=== PATIENT | female | born 1985 | race Caucasian/White ===

== ENCOUNTER 2016-08-01 11:55 | Outpatient (CLI) ==
[2016-07-03 16:12] VITALS: BMI 36.6
== END 2016-08-01 11:56 | disposition home or self-care (01) ==
LOC: LAB 11:55
DX: R59.0 Localized enlarged lymph nodes (principal)
CPT/HCPCS: 36415; 87471

== ENCOUNTER 2017-03-13 13:56 | Outpatient (CLI) ==
[2016-07-03 16:12] VITALS: BMI 36.6
--- NOTE | 2017-03-13 14:33 | DI ---
EXAM: LEFT KNEE. HISTORY: Knee pain FINDINGS / IMPRESSION: Left knee three-view. Incidental note of mild intraosseous ligament ossifi cation off of the medial fibular head of indeterminate clinical significance. The bone and joint st ructures of the knee were otherwise unremarkable. Normal joint spaces. No fracture or joint effusi on.
== END 2017-03-13 13:57 | disposition home or self-care (01) ==
LOC: RAD 13:56
PROVIDERS: ATTEND Family Medicine
DX: M25.562 Pain in left knee (principal)

== ENCOUNTER 2017-04-08 10:44 | Emergency (ER) ==
[2017-04-08 10:49] VITALS: BP 118/84; TEMP 99.1; BMI 39.1
--- NOTE | 2017-04-08 11:15 | ED.PDOC ---
General ED Provider: Dr. SAL BOWMAN Chief Complaint: Toe Pain/Injury Stated Complaint: Caught right big toe in closing door which partially avulsed the toenail. Toe pain is throbbing and increases with any movement or touch. Bleeding controlled spontaneously. Time Seen by Physician: 11:09 Mode of Arrival: Walk-In Information Source: Patient Exam Limitations: No limitations Primary Care Provider: STEPHEN BENTON Nursing and Triage Documentation Reviewed and Agree: Yes Musculoskeletal Complaint Exam - Ankle/Foot Complaint/Exam Location of Injury: Reports: Right, Toe #1 Mechanism of Injury: Reports: Trauma (caught in closing door) Onset/Duration: approx 1 hour ago Symptoms Are: Reports: Still present Onset of Pain: Reports: Immediate Initial Severity: Severe Current Severity: Severe Location: Reports: Discrete Character: Reports: Throbbing (sharp initially, now throbbing) Alleviating: Reports: None Aggravating: Reports: Movement, Weight bearing (palpation) Able to Bear Weight: No Associated Signs and Symptoms: Reports: Swelling (slight swelling, nail partially avulsed, bled initially, now stopped.) Review of Systems - Review Of Systems Constitutional: Reports: No symptoms Musculoskeletal: Reports: Muscle pain Skin: Reports: Other (nail avulsed medially) Neurological: Reports: No symptoms All Other Systems: Reviewed and Negative Past Medical History - Past Medical History Previously Healthy: Yes Endocrine: Reports: None Cardiovascular: Reports: None Respiratory: Reports: None Hematological: Reports: None Gastrointestinal: Reports: None, Liver (STENT TO LIVER AND PANCREAS) Genitourinary: Reports: None Neuro/Psych: Reports: Migraine, Anxiety, Depression Musculoskeletal: Reports: None Cancer: Reports: None Last Menstrual Period: n/a Other Pertinent Past Medical History: right big toenail has grown deformed point upward since trauma 10 years ago - Surgical History General Surgical History: Reports: Hysterectomy, Cholecystectomy - Family History Family History: Reports: Unknown - Social History Smoking Status: Current every day smoker, Light tobacco smoker Hx Substance Use: No Alcohol Screening: Occasionally - Immunizations Tetanus Shot up to Date: Yes (less than 5 years) Physical Exam - Physical Exam Appearance: Well-appearing, No pain distress, Well-nourished Ill-appearing: None Pain Distress: Moderate Respiratory: Airway patent, Breath sounds clear, Breath sounds equal, Respirations nonlabored Cardiovascular: RRR, Pulses normal, No rub, No murmur Musculoskeletal: Limited ROM (right big toe IP tener with any ROM active or passive) Skin: Warm (right big toenail is partially avulsed medially) Neurological: Sensation intact Psychiatric: Affect appropriate, Mood appropriate Procedures - Additional Procedures Additional Procedures: Other (right big toenail was grasped and easily removed. No additional bleeding. Sterilely dressed.) Re-Evaluation - Re-Evaluation Time of Re-Evaluation: 13:43 Status: Improved Vital Signs Stable: Yes Pain Level: 0 Appearance: NAD Lungs: Clear Skin: Other (toe thoroughly cleansed, revealing all bleeding was from nail avulsion) Neuro: Alert and Oriented X3 CV: RRR Critical Care Note - Critical Care Note Total Time (mins): 0 Course - Course Orders, Labs, Meds: Orders Category Date Time Status Bupivacaine HCl Inj [Marcaine 0.5% Mdv] MEDS 04/08/17 13:03 Discontinued 1 ml INJ .STK-MED ONE Lidocaine HCl/Pf [Lidocaine HCl 1% Sdv] MEDS 04/08/17 12:21 Discontinued 5 ml .ROUTE .STK-MED ONE TOE(S), RIGHT MIN 2V Stat RADS 04/08/17 11:15 Completed Vital Signs: Temp Pulse Resp BP Pulse Ox 04/08/17 10:45 99.1 F 91 H 20 118/84 96 Departure - Departure Time of Disposition: 13:49 Disposition: HOME SELF-CARE Discharge Problem: Avulsion of toenail of right foot Instructions: Nail Avulsion (ED) Condition: Good Pt referred to PMD for follow-up: No (Follow up with PCP if any problems) Allergies/Adverse Reactions: Allergies morphine Adverse Reaction (Verified 04/08/17 10:49) Home Medications: Ambulatory Orders Alprazolam [Xanax] 1 mg PO QID 04/06/13 Sumatriptan Succinate [Imitrex] 25 mg PO DAILY PRN 04/15/14 Citalopram Hydrobromide [Celexa] 20 mg PO BEDTIME 02/26/15 Ropinirole HCl [Requip] 2 mg PO BEDTIME 05/16/15 Lipase/Protease/Amylase [Creon Dr 12,000 Units Capsule] 12,000 mg PO TID Alprazolam [Xanax] 1 mg PO QID 11/30/16 Topiramate [Topamax] 200 mg PO PRN 11/30/16 Cetirizine HCl [Zyrtec] 10 mg PO DAILY 04/08/17 Hydrocodone Bit/Acetaminophen [[place]wn 5-325] 1 each PO Q4HR PRN #20 tablet Quetiapine Fumarate [Seroquel] 1 - 2 tab PO BEDTIME 04/08/17 Disposition Discussed With: Patient
--- NOTE | 2017-04-08 11:45 | DI ---
EXAM: Three views of the right toes. History: Trauma of the right first digit. Findings: No acute fracture or dislocation. No abnormal calcifications or radiopaque foreign bodies . Soft tissue swelling of the first toe. Impression: No acute osseous abnormality. Soft tissue swelling of the first toe.
[2017-04-08] MEDS ORDERED: LIDOCAINE HCL 1% SDV ONE (12:21)
[2017-04-08] MEDS ORDERED: MARCAINE 0.5% MDV INJ ONE (13:03)
== END 2017-04-08 14:04 | disposition home or self-care (01) ==
LOC: ED 10:44
DX: S91.201A Unspecified open wound of right great toe with damage to nail, initial encounter (principal); F17.210 Nicotine dependence, cigarettes, uncomplicated; W23.0XXA Caught, crushed, jammed, or pinched between moving objects, initial encounter
CPT/HCPCS: 99283

== ENCOUNTER 2017-05-12 22:49 | Emergency (ER) ==
[2017-05-12] MEDS ORDERED: SODIUM CHLORIDE 1,000 ML IV STA (22:56)
[2017-05-12] MEDS ORDERED: DILAUDID 1 MG/ML SYRINGE IVP STA (22:56)
[2017-05-12] MEDS ORDERED: ZOFRAN 4 MG/2 ML IVP STA (22:56)
[2017-05-12 23:05] LABS: BASOPHILS % (AUTO) 0.5 % (0.0-3.0); EOSINOPHILS # (AUTO) 0.4 K/ul (0.0-0.7); EOSINOPHILS % (AUTO) 5.4 % (0.0-7.0); HEMATOCRIT 38.5 % (37.0-47.0); HEMOGLOBIN 13.2 g/dl (12.0-16.0); IMMATURE GRANULOCYTE % (AUTO) 0.3 % (0.0-5.0); LYMPHOCYTES # (AUTO) 2.3 K/uL (0.60-3.4); LYMPHOCYTES % (AUTO) 29.9 (10.0-50.0); MEAN CORPUSCULAR HGB CONC 34.3 (31.8-35.4); MEAN CORPUSCULAR VOLUME 90.4 fl (81.0-99.0); MONOCYTES # (AUTO) 0.5 K/uL (0.4-2.0); MONOCYTES % (AUTO) 5.9 (0-10); NEUTROPHILS # (AUTO) 4.4 K/ul (2.0-6.9); PLATELET COUNT 189 10^3/uL (140-440); RED BLOOD COUNT 4.26 10^6/ul (4.20-5.40); WHITE BLOOD COUNT 7.65 K/ul (4.6-10.2)
[2017-05-12 23:07] VITALS: BP 109/57; TEMP 96.9; BMI 39.6
[2017-05-12 23:41] LABS: ALANINE AMINOTRANSFERASE 33 U/L (12-78); ALBUMIN 3.7 g/dL (3.4-5.0); ALBUMIN/GLOBULIN RATIO 1.16; ALKALINE PHOSPHATASE 55 U/L (42-98); AMYLASE 27 U/L (25-115); ANION GAP 13.6; ASPARTATE AMINO TRANSFERASE 24 U/L (15-37); BILIRUBIN,TOTAL 0.34 mg/dL (0.00-1.20); BLOOD UREA NITROGEN 9 mg/dL (7-18); CALCIUM 9.7 mg/dL (8.2-10.2); CARBON DIOXIDE 21 mmol/L (21-32); CHLORIDE 108 mmol/L (98-107); CREATINE KINASE 437 U/L; CREATININE 0.75 mg/dL (0.60-1.30); GLUCOSE 93 mg/dL (70-110); LIPASE 17 U/L (8-78); POTASSIUM 3.6 mmol/L (3.5-5.10); SODIUM 139 mmol/L (136-145); TOTAL PROTEIN 6.9 g/dL (6.4-8.2)
[2017-05-12 23:42] LABS: CREATINE KINASE MB 1.8 ng/ml (0.0-3.6)
[2017-05-12 23:45] LABS: ADD URINE MICROSCOPIC NO; BILIRUBIN,URINE Negative (NEGATIVE); KETONES,URINE Negative (NEGATIVE); LEUKOCYTE ESTERASE ,URINE Negative (NEGATIVE); NITRITE,URINE Negative (NEGATIVE); PROTEIN,URINE Negative (NEGATIVE); URINE, BLOOD Negative (NEGATIVE)
--- NOTE | 2017-05-12 23:45 | CT ---
EXAM: CT of the abdomen and pelvis without contrast. HISTORY: Abdominal pain. History of pancreatitis. Surgical history includes partial hysterectomy. PROCEDURE: Contiguous axial CT images of the abdomen and pelvis without contrast with coronal and sa gittal reformats. FINDINGS: Comparison made with CT abdomen/pelvis of 02/16/2016. The liver is normal in appearance. The gallbladder is surgically absent. The pancreas, spleen, adrenal glands and right kidney are norm al in appearance. There is a 0.2 cm nonobstructive calcification in the left kidney. No ureterolithi asis or hydronephrosis. The abdominal aorta is normal in appearance. The visualized loops of bowel and appendix are normal in appearance. No free fluid or free air in the abdomen or pelvis. The bladde r is adequately filled with no abnormality identified. The uterus is unremarkable. There are phlebol iths in the lower pelvis. The bones and soft tissues are unremarkable. Impression: No CT evidence of pancreatitis. Recommend correlation with amylase and lipase levels if clinically indicated. Nonobstructive left nephrolithiasis. Cholecystectomy.
--- NOTE | 2017-05-13 00:04 | ED.PDOC ---
General ED Provider: Dr. DREA WEBB-ER Chief Complaint: Abdominal Pain Stated Complaint: yamil been having ccramping Time Seen by Physician: 22:55 Mode of Arrival: Walk-In Information Source: Patient Exam Limitations: No limitations Primary Care Provider: STEPHEN BENTON Nursing and Triage Documentation Reviewed and Agree: Yes GI Complaint Exam - Abdominal Pain Complaint/Exam Onset: Gradual Duration: several days Symptoms Are: Still present Timing: Intermittent Initial Severity: Mild Current Severity: Mild Location of Pain: Epigastric Character: Reports: Dull, Aching, Cramping Aggravating: Reports: None Alleviating: Reports: Spontaneous resolution Associated Signs and Symptoms: Denies: Diaphoresis, Fever, Cough, Chest pain, Dizziness, Back pain, Constipation, Blood in stool, Dysuria, Urinary frequency, Decreased urine output, Decreased appetite, Vaginal bleeding, Vaginal discharge , Nausea, Vomiting, Diarrhea, Sore throat, Decreased activity Patient Rh Status: Unknown Abdominal Findings: Present: None Differential Diagnoses: Appendicitis, Bowel Obstruction, Constipation, Pancreatitis, Ureteral Stone Quality Indicator For Non-Traumatic Chest Pain/Syncope: EKG Performed Review of Systems - Review Of Systems Constitutional: Reports: No symptoms Eyes: Reports: No symptoms Ears, Nose, Mouth, Throat: Reports: No symptoms Respiratory: Reports: No symptoms Cardiac: Reports: No symptoms GI: Reports: Abdominal pain : Reports: No symptoms Musculoskeletal: Reports: No symptoms Skin: Reports: No symptoms Neurological: Reports: No symptoms Endocrine: Reports: No symptoms Hematologic/Lymphatic: Reports: No symptoms All Other Systems: Reviewed and Negative Past Medical History - Past Medical History Previously Healthy: Yes Endocrine: Reports: None Cardiovascular: Reports: None Respiratory: Reports: None Hematological: Reports: None Gastrointestinal: Reports: None, Liver (STENT TO LIVER AND PANCREAS) Genitourinary: Reports: None Neuro/Psych: Reports: Migraine, Anxiety, Depression Musculoskeletal: Reports: None Cancer: Reports: None Last Menstrual Period: 4-5 YEARS AGO ...PARTIAL HYSTERECTOMY Other Pertinent Past Medical History: right big toenail has grown deformed point upward since trauma 10 years ago - Surgical History General Surgical History: Reports: Hysterectomy, Cholecystectomy - Family History Family History: Reports: Unknown - Social History Smoking Status: Current every day smoker, Light tobacco smoker Hx Substance Use: No Alcohol Screening: Occasionally - Immunizations Tetanus Shot up to Date: Yes Physical Exam - Physical Exam Appearance: Well-appearing, No pain distress, Well-nourished Pain Distress: Mild Eyes: ARTEMIO, EOMI, Conjunctiva clear ENT: Ears normal, Nose normal, Oropharynx normal Neck: Supple Respiratory: Airway patent, Breath sounds clear, Breath sounds equal, Respirations nonlabored Cardiovascular: RRR GI/: Soft Musculoskeletal: Normal strength Skin: Warm Neurological: Sensation intact Psychiatric: Affect appropriate, Mood appropriate Interpretation - Radiology Interpretation Radiology Interpretation By: Radiologist Radiology Results: Negative Exam Interpreted: CT Scan Critical Care Note - Critical Care Note Total Time (mins): 0 Course - Course Hematology/Chemistry: 05/12/17 23:04 05/12/17 23:04 Orders, Labs, Meds: Lab Review 05/12/17 05/12/17 05/12/17 23:04 23:04 23:35 WBC 7.65 RBC 4.26 Hgb 13.2 Hct 38.5 MCV 90.4 MCH 31.0 MCHC 34.3 RDW Coeff of Raf 12.8 Plt Count 189 Immature Gran % (Auto) 0.3 Neut % (Auto) 58.0 Lymph % (Auto) 29.9 [place] % (Auto) 5.9 Eos % (Auto) 5.4 Baso % (Auto) 0.5 Immature Gran # (Auto) 0.0 Neut # 4.4 Lymph # 2.3 [place] # 0.5 Eos # 0.4 Baso # 0.0 Sodium 139 Potassium 3.6 Chloride 108 H Carbon Dioxide 21 Anion Gap 13.6 BUN 9 Creatinine 0.75 Estimated GFR (MDRD) 89.00 BUN/Creatinine Ratio 12.00 Glucose 93 Calcium 9.7 Total Bilirubin 0.34 AST 24 ALT 33 Alkaline Phosphatase 55 Total Creatine Kinase 437 CK-MB (CK-2) 1.8 CK-MB (CK-2) % 0.47220 Troponin I < 0.0100 Total Protein 6.9 Albumin 3.7 Globulin 3.2 Albumin/Globulin Ratio 1.16 Amylase 27 Lipase 17 Urine Color Yellow Urine Clarity Clear Urine pH 7.0 Ur Specific [place] 1.010 Urine Protein Negative Urine Glucose (UA) Negative Urine Ketones Negative Urine Blood Negative Urine Nitrite Negative Urine Bilirubin Negative Urine Urobilinogen 0.2 Ur Leukocyte Esterase Negative Orders Category Date Time Status EKG-(ED ONLY) Stat CARDIO 05/12/17 22:55 Completed IV [ED IV/MEDIPORT/POWERPORT] .ONCE EMERGENCY 05/12/17 22:56 Active AMYLASE Stat LAB 05/12/17 23:04 Completed CBC W/ AUTO DIFF Stat LAB 05/12/17 23:04 Completed COMPREHENSIVE METABOLIC PANEL Stat LAB 05/12/17 23:04 Completed CREATINE KINASE Stat LAB 05/12/17 23:04 Completed LIPASE Stat LAB 05/12/17 23:04 Completed TROPONIN I Stat LAB 05/12/17 23:04 Completed URINALYSIS C & S IF INDICATED Stat LAB 05/12/17 23:35 Completed 0.9 % Sodium Chloride [Saline Flush] MEDS 05/12/17 22:56 Ordered 1 syr IVF PRN PRN Hydromorphone HCl [Dilaudid 1 mg/ml Syringe] MEDS 05/12/17 22:56 Discontinued 1 mg IVP ONCE STA Ondansetron HCl/Pf [Zofran 4 mg/2 ml] MEDS 05/12/17 22:56 Discontinued 4 mg IVP ONCE STA Sodium Chloride 0.9% [Sodium Chloride] 1,000 ml MEDS 05/12/17 22:[address] ABDOMEN/PELVIS WO CONTRAST Stat RADS 05/12/17 22:57 Completed Medications Generic Name Dose Route Start Last Admin Trade Name Freq PRN Reason Stop Dose Admin Sodium Chloride 1,000 mls @ 500 mls/hr 05/12/17 22:56 05/12/17 23:42 Sodium Chloride IV 05/13/17 00:55 500 mls/hr BOLUS STA Administration Sodium Chloride 1 syr 05/12/17 22:56 Saline Flush IVF PRN PRN To flush IV Discontinued Medications Generic Name Dose Route Start Last Admin Trade Name Freq PRN Reason Stop Dose Admin Hydromorphone HCl 1 mg 05/12/17 22:56 Dilaudid 1 Mg/Ml Syringe IVP 05/12/17 22:57 ONCE STA Ondansetron HCl 4 mg 05/12/17 22:56 05/12/17 23:45 Zofran 4 Mg/2 Ml IVP 05/12/17 22:57 4 mg ONCE STA Administration Vital Signs: Temp Pulse Resp BP Pulse Ox 05/12/17 22:56 96.9 F L 69 20 109/57 L 96 Departure - Departure Time of Disposition: 00:04 Disposition: HOME SELF-CARE Discharge Problem: Abdominal pain Instructions: Abdominal Pain (ED) Condition: Good Pt referred to PMD for follow-up: Yes Additional Instructions: f/u wtih dr love tomorrow regarding cramps--suggest talking to dr benton as well Allergies/Adverse Reactions: Allergies morphine Adverse Reaction (Verified 05/12/17 23:06) Swelling Home Medications: Ambulatory Orders Citalopram Hydrobromide [Celexa] 20 mg PO BEDTIME 02/26/15 Ropinirole HCl [Requip] 2 mg PO BEDTIME 05/16/15 Lipase/Protease/Amylase [Isabel Del Cid 12,000 Units Capsule] 12,000 mg PO TID Alprazolam [Xanax] 1 mg PO QID 11/30/16 Topiramate [Topamax] 200 mg PO PRN 11/30/16 Cetirizine HCl [Zyrtec] 10 mg PO DAILY 04/08/17 Quetiapine Fumarate [Seroquel] 1 - 2 tab PO BEDTIME 04/08/17 Phentermine HCl 37.5 mg PO DAILY 05/12/17 Varenicline Tartrate [Chantix] 1 mg PO BID 05/12/17 Disposition Discussed With: Patient
== END 2017-05-13 00:15 | disposition home or self-care (01) ==
LOC: ED 22:49
DX: R10.9 Unspecified abdominal pain (principal); F17.210 Nicotine dependence, cigarettes, uncomplicated; Z79.899 Other long term (current) drug therapy
CPT/HCPCS: 36415; 80053; 81001; 82150; 82550; 82553; 83690; 84484; 85025; 93005; 93010; 96361; 96374; 99283

== ENCOUNTER 2017-07-08 14:29 | Outpatient (CLI) ==
[2017-07-08 14:42] LABS: FLU INTERNAL QC INTERNAL QC VALID; RAPID FLU A NEGATIVE (NEGATIVE); RAPID FLU B NEGATIVE (NEGATIVE)
== END 2017-07-08 14:30 | disposition home or self-care (01) ==
LOC: LAB 14:29
PROVIDERS: ATTEND Nurse Practitioner Family
DX: R05 Cough (principal); R50.9 Fever, unspecified
CPT/HCPCS: 87651; 87804; 87880

== ENCOUNTER 2017-07-30 11:37 | Outpatient (CLI) | END 2017-07-30 11:38 | disposition home or self-care (01) | LOC: LAB 11:37 | PROVIDERS: ATTEND Internal Medicine Gastroenterology | DX: K86.1 Other chronic pancreatitis (principal) | CPT/HCPCS: 36415; 80053; 85025 ==

== ENCOUNTER 2017-09-10 13:06 | Outpatient (CLI) | END 2017-09-10 13:07 | disposition home or self-care (01) | LOC: LAB 13:06 | PROVIDERS: ATTEND Nurse Practitioner Family | DX: R50.9 Fever, unspecified (principal) | CPT/HCPCS: 87804 ==

== ENCOUNTER 2017-09-24 08:09 | Emergency (ER) ==
[2017-09-24 08:17] VITALS: BP 119/84; TEMP 99.2; BMI 42.7
[2017-09-24] MEDS ORDERED: SODIUM CHLORIDE 1,000 ML IV STA (09:16)
[2017-09-24] MEDS ORDERED: PEPCID IVP STA (09:20)
[2017-09-24] MEDS ORDERED: ZOFRAN 4 MG/2 ML IVP STA (09:20)
--- NOTE | 2017-09-24 09:22 | ED.PDOC ---
General ED Provider: Dr. DREA CHAU Chief Complaint: Nausea/Vomiting Stated Complaint: Nausea and vomiting. Hx chronic pancreatitis. Onset GI symptoms last with multiple episodes emesis. Developed diarrhea. Unable to keep liquids down. Having upper abdominal cramping sensation. Denies flank or symptoms Time Seen by Physician: 09:00 Mode of Arrival: Walk-In Information Source: Patient Exam Limitations: No limitations Primary Care Provider: STEPHEN FARRIS Nursing and Triage Documentation Reviewed and Agree: Yes Reviewed sepsis parameters & appropriate labs ordered?: Yes System Inflammatory Response Syndrome: Not Applicable Sepsis Protocol: For patient's 13 years and over: Temp is 96.8 and below OR 101 and greater Pulse >90 BPM Resp >20/minute Acutely Altered Mental Status Are patient's symptoms suggestive of a new infection, such as: -Pneumonia -Skin, Soft Tissue -Endocarditis -UTI -Bone, Joint Infection -Implantable Device -Acute Abdominal Infection -Wound Infection -Meningitis -Blood Stream Catheter Infection -Unknown System Inflammatory Response Syndrome: Not Applicable GI Complaint Exam - Abdominal Pain Complaint/Exam Onset: Sudden Duration: 6 days Symptoms Are: Still present Timing: Intermittent Initial Severity: Moderate Current Severity: Moderate Location of Pain: Epigastric Character: Reports: Dull, Aching Aggravating: Reports: Position, Eating (NPO except small amout clear liquid for past several day-states has lost 10 #) Associated Signs and Symptoms: Reports: Decreased urine output, Decreased appetite AAA Risk Factors: Reports: None Cardiac Risk Factors: Reports: None Ectopic Risk Factors: Reports: None Ovarian Torsion Risk Factors: Reports: None Surgical Obstruction Risk Factors: Reports: None Review of Systems - Review Of Systems Constitutional: Reports: Chills, Weakness Eyes: Reports: No symptoms, Blindness, Blurred vision Ears, Nose, Mouth, Throat: Reports: No symptoms Respiratory: Reports: No symptoms Cardiac: Reports: No symptoms GI: Reports: Abdominal pain, Diarrhea, Nausea, Vomiting : Reports: No symptoms Musculoskeletal: Reports: No symptoms Skin: Reports: No symptoms Neurological: Reports: No symptoms Endocrine: Reports: No symptoms Hematologic/Lymphatic: Reports: No symptoms All Other Systems: Reviewed and Negative Past Medical History - Past Medical History Previously Healthy: Yes Endocrine: Reports: None Cardiovascular: Reports: None Respiratory: Reports: None Hematological: Reports: None Gastrointestinal: Reports: None, Liver (STENT TO LIVER AND PANCREAS) Genitourinary: Reports: None Neuro/Psych: Reports: Migraine, Anxiety, Depression Musculoskeletal: Reports: None Cancer: Reports: None Last Menstrual Period: Hysterectomy Other Pertinent Past Medical History: right big toenail has grown deformed point upward since trauma 10 years ago - Surgical History General Surgical History: Reports: Hysterectomy, Cholecystectomy - Family History Family History: Reports: Unknown - Social History Smoking Status: Current every day smoker, Light tobacco smoker Hx Substance Use: No Alcohol Screening: Occasionally - Immunizations Tetanus Shot up to Date: Yes Physical Exam - Physical Exam Appearance: Ill-appearing Ill-appearing: Moderate Pain Distress: Moderate Eyes: ARTEMIO, EOMI, Conjunctiva clear ENT: Ears normal, Nose normal, Oropharynx normal, Dry mucosa (tongue dry/bad oral fetor) Neck: Supple Respiratory: Airway patent, Breath sounds clear, Breath sounds equal Cardiovascular: RRR, Pulses normal, No rub, No murmur GI/: Soft, Nontender, No masses, Tender Musculoskeletal: Normal strength Skin: Warm, Dry Neurological: Sensation intact, Motor intact, Reflexes intact, Cranial nerves intact, Alert, Oriented Psychiatric: Affect appropriate, Mood appropriate, Anxious Re-Evaluation - Re-Evaluation Time of Re-Evaluation: 14:00 Status: Improved Vital Signs Stable: Yes Pain Level: 0 Appearance: NAD Lungs: Clear Skin: Warm and Dry Neuro: Alert and Oriented X3 CV: RRR Additional Comments: Taking clear liquids well Critical Care Note - Critical Care Note Total Time (mins): 0 Course - Course Hematology/Chemistry: 09/24/17 09:30 09/24/17 09:30 Orders, Labs, Meds: Lab Review 09/24/17 09/24/17 09/24/17 09:30 09:30 09:30 WBC 5.53 RBC 4.62 Hgb 14.4 Hct 42.1 MCV 91.1 MCH 31.2 H MCHC 34.2 RDW Coeff of Raf 12.8 Plt Count 221 Immature Gran % (Auto) 0.4 Neut % (Auto) 65.2 Lymph % (Auto) 25.0 [place] % (Auto) 5.8 Eos % (Auto) 2.9 Baso % (Auto) 0.7 Immature Gran # (Auto) 0.0 Neut # (Auto) 3.6 Lymph # (Auto) 1.4 [place] # (Auto) 0.3 L Eos # (Auto) 0.2 Baso # (Auto) 0.0 Sodium 140 Potassium 3.7 Chloride 109 H Carbon Dioxide 21 Anion Gap 13.7 BUN 11 Creatinine 0.76 Estimated GFR (MDRD) 88.00 BUN/Creatinine Ratio 14.47 Glucose 101 Lactic Acid 12.5 Calcium 9.6 Total Bilirubin 0.6 AST 20 ALT 46 Alkaline Phosphatase 60 Total Protein 7.4 Albumin 3.9 Globulin 3.5 Albumin/Globulin Ratio 1.11 Amylase 29 Lipase 16 Urine Color Urine Clarity Urine pH Ur Specific [place] Urine Protein Urine Glucose (UA) Urine Ketones Urine Blood Urine Nitrite Urine Bilirubin Urine Urobilinogen Ur Leukocyte Esterase Urine Microscopic RBC Ur Squamous Epith Cells Urine Bacteria Influ A Molecular Assay Influ B Molecular Assay 09/24/17 09/24/17 10:00 13:33 WBC RBC Hgb Hct MCV MCH MCHC RDW Coeff of Raf Plt Count Immature Gran % (Auto) Neut % (Auto) Lymph % (Auto) [place] % (Auto) Eos % (Auto) Baso % (Auto) Immature Gran # (Auto) Neut # (Auto) Lymph # (Auto) [place] # (Auto) Eos # (Auto) Baso # (Auto) Sodium Potassium Chloride Carbon Dioxide Anion Gap BUN Creatinine Estimated GFR (MDRD) BUN/Creatinine Ratio Glucose Lactic Acid Calcium Total Bilirubin AST ALT Alkaline Phosphatase Total Protein Albumin Globulin Albumin/Globulin Ratio Amylase Lipase Urine Color Yellow Urine Clarity Clear Urine pH 5.0 Ur Specific [place] 1.010 Urine Protein Negative Urine Glucose (UA) Negative Urine Ketones Negative Urine Blood Trace-intact Urine Nitrite Negative Urine Bilirubin Negative Urine Urobilinogen 0.2 Ur Leukocyte Esterase Negative Urine Microscopic RBC 0-2 Ur Squamous Epith Cells 30-50 Urine Bacteria Trace Influ A Molecular Assay Negative by naat Influ B Molecular Assay Negative by naat Orders Category Date Time Status IV ACCESS ONCE CARE 09/24/17 09:16 Active NPO REMINDER: IMAGING ONCE CARE 09/24/17 09:20 Completed AMYLASE Stat LAB 09/24/17 09:30 Completed BLOOD CULTURE (ED ONLY) Stat LAB 09/24/17 09:30 Received CBC W/ AUTO DIFF Stat LAB 09/24/17 09:30 Completed CMP [COMPREHENSIVE METABOLIC PANEL] Stat LAB 09/24/17 09:30 Completed FLU A & B MOLECULAR [FLU A/B MOLECULAR] Stat LAB 09/24/17 10:00 Completed LACTIC ACID Stat LAB 09/24/17 09:30 Completed LIPASE Stat LAB 09/24/17 09:30 Completed RAPID STREP SCREEN [MOLECULAR GROUP A STREP] Stat LAB 09/24/17 10:00 Completed UA [URINALYSIS C & S IF INDICATED] Stat LAB 09/24/17 13:33 Completed Famotidine Inj [Pepcid] MEDS 09/24/17 09:20 Discontinued 20 mg IVP ONCE STA Ondansetron HCl/Pf [Zofran 4 mg/2 ml] MEDS 09/24/17 09:20 Discontinued 4 mg IVP ONCE STA Promethazine HCl [Phenergan 25 mg/ml Vial] MEDS 09/24/17 11:28 Discontinued 25 mg .ROUTE .STK-MED ONE Promethazine HCl [Phenergan 25 mg/ml Vial] 25 mg MEDS 09/24/17 11:24 Discontinued 0.9 % Sodium Chloride [Sodium Chloride] 50 ml IV ONCE Sodium Chloride 0.9% [Sodium Chloride] 1,000 ml MEDS 09/24/17 09:[address] ABDOMEN/PELVIS W/WO CONTRAS Stat RADS 09/24/17 09:19 Completed Medications Discontinued Medications Generic Name Dose Route Start Last Admin Trade Name Yanivq PRN Reason Stop Dose Admin Famotidine 20 mg 09/24/17 09:20 09/24/17 10:35 Pepcid IVP 09/24/17 09:21 20 mg ONCE STA Administration Sodium Chloride 1,000 mls @ 500 mls/hr 09/24/17 09:16 09/24/17 10:35 Sodium Chloride IV 09/24/17 11:15 500 mls/hr BOLUS STA Administration Promethazine HCl 25 mg/ Sodium 51 mls @ 75 mls/hr 09/24/17 11:24 09/24/17 11: 40 Chloride IV 09/24/17 12:04 75 mls/hr ONCE STA Administration Ondansetron HCl 4 mg 09/24/17 09:20 09/24/17 10:20 Zofran 4 Mg/2 Ml IVP 09/24/17 09:21 4 mg ONCE STA Administration Vital Signs: Temp Pulse Resp BP Pulse Ox 09/24/17 08:11 99.2 F 71 18 119/84 97 Departure - Departure Time of Disposition: 14:20 Disposition: HOME SELF-CARE Discharge Problem: Gastroenteritis Instructions: Gastroenteritis (ED) Condition: Good Pt referred to PMD for follow-up: Yes (Dr Farris in next 7-10 days or return to ER if symptoms return or worsen) IPMP verified?: No Allergies/Adverse Reactions: Allergies morphine Adverse Reaction (Verified 09/24/17 08:17) Swelling Home Medications: Ambulatory Orders Citalopram Hydrobromide [Celexa] 20 mg PO BEDTIME 02/26/15 Ropinirole HCl [Requip] 2 mg PO BEDTIME 05/16/15 Alprazolam [Xanax] 1 mg PO QID 11/30/16 Topiramate [Topamax] 200 mg PO PRN 11/30/16 Quetiapine Fumarate [Seroquel] 1 - 2 tab PO BEDTIME 04/08/17 Varenicline Tartrate [Chantix] 1 mg PO BID 05/12/17 Promethazine HCl [Phenergan Tab] 25 mg PO Q8H PRN #7 tablet 09/24/17 Disposition Discussed With: Patient
--- NOTE | 2017-09-24 10:49 | CT ---
EXAM: CT abdomen pelvis with and without contrast HISTORY: Abdominal pain with history of pancreatitis COMPARISON: CT abdomen pelvis 05/12/2017 and 02/16/2016 with multiple priors TECHNIQUE: Serial axial images of the abdomen pelvis were performed before and after 75 mL is of Omn ipaque IV contrast was administered. These were obtained from the lung bases through the inferior pe lvis. FINDINGS: The lung bases are clear. The liver is unremarkable. There has been a cholecystectomy. Adrenal glands are unremarkable. The kidneys demonstrate no obstruction, stone or abnormality. The spleen is unremarkable. The pancreas is unremarkable. There is no peripancreatic inflammatory stranding. The stomach is mildly distended . Small bowel in the abdomen pelvis is unremarkable. The colon is nondistended. There are nonenlarged mesenteric lymph nodes. There is no free air or free fluid. Urinary bladder is distended. The sof t tissues in the pelvis are normal. The osseous structures are unremarkable. IMPRESSION: 1. No acute intra-abdominal or pelvic process. There is no evidence of pancreatitis. 2. Prior cholecystectomy.
[2017-09-24] MEDS ORDERED: PHENERGAN 25 MG/ML VIAL 25 MG in SODIUM CHLORIDE 50 ML IV STA (11:24)
[2017-09-24] MEDS ORDERED: PHENERGAN 25 MG/ML VIAL ONE (11:28)
== END 2017-09-24 14:30 | disposition home or self-care (01) ==
LOC: ED 08:09
DX: K52.9 Noninfective gastroenteritis and colitis, unspecified (principal); Z87.19 Personal history of other diseases of the digestive system; F17.210 Nicotine dependence, cigarettes, uncomplicated
CPT/HCPCS: 36415; 80053; 81001; 82150; 83605; 83690; 85025; 87040; 87502; 87651; 96361; 96365; 96375; 99283

== ENCOUNTER 2017-11-20 18:16 | Emergency (ER) ==
[2017-11-20 18:20] VITALS: BP 98/59; TEMP 99.3; BMI 42.6
[2017-11-20] MEDS ORDERED: ROCEPHIN IM STA (18:32)
[2017-11-20] MEDS ORDERED: DECADRON 4 MG/ML SDV IM STA (18:32)
[2017-11-20] MEDS ORDERED: LIDOCAINE HCL 1% SDV IM STA (18:32)
--- NOTE | 2017-11-20 18:38 | ED.PDOC ---
General ED Provider: Dr. WM MIRANDA Chief Complaint: Cough Stated Complaint: COUGH, FLU LIKE SYMPTOMS Time Seen by Physician: 18:19 Mode of Arrival: Walk-In Information Source: Patient Exam Limitations: No limitations Primary Care Provider: STEPHEN BENTON Nursing and Triage Documentation Reviewed and Agree: Yes Reviewed sepsis parameters & appropriate labs ordered?: Yes (SEEN WITH NURSING STAFF PRESENT 3 DAYS OF COUGH) System Inflammatory Response Syndrome: Not Applicable Sepsis Protocol: For patient's 13 years and over: Temp is 96.8 and below OR 101 and greater Pulse >90 BPM Resp >20/minute Acutely Altered Mental Status Are patient's symptoms suggestive of a new infection, such as: -Pneumonia -Skin, Soft Tissue -Endocarditis -UTI -Bone, Joint Infection -Implantable Device -Acute Abdominal Infection -Wound Infection -Meningitis -Blood Stream Catheter Infection -Unknown System Inflammatory Response Syndrome: Not Applicable Respiratory Complaint Exam - Respiratory Complaint/Exam Onset/Duration: 3 DAYS Symptoms Are: Still present Timing: Intermittent Initial Severity: Moderate Current Severity: Moderate Location: Throat, Chest Character: Reports: Non-productive cough, Dry cough Aggravating: Reports: URI Alleviating: Reports: None Associated Signs and Symptoms: Reports: URI, Nasal congestion. Denies: Rapid breathing, Dyspnea, Fever, Chills, Chest pain, Pleuritic chest pain, Wheezing, Hemoptysis, Dizziness, Calf pain, Calf swelling, Edema, Hoarseness, Sinus discomfort, Vomiting, Sore throat, Weight loss, Decreased oral intake, Increased thirst, Increased appetite, Increased urination Related History: Reports: Similar episode History of Healthcare-Acquired Pneumonia: No Related Surgical History: Reports: None Pulmonary Embolism Risk Factors: None Cardiac Risk Factors: Reports: None Pseudomonas Risk Factors: Reports: None Tuberculosis Risk Factors: Reports: None Status Asthmaticus Risk Factors: Reports: None Home Oxygen Use: No Recent Stress Test: No Recent Echo/LV Function: No Current Antibiotic Use: No Current Asthma Medication Use: No Respiratory Distress: None Inadequate Respiratory Effort: No Dysphagia Present: No Stridor Present: No JVD Present: No Accessory Muscle Use: No Retractions: Not Present Diminished Breath Sounds: No Prolonged Respiration: Expiratory phase Sinus Tenderness: None Grunting Respirations: No Kussmaul Respirations: No Differential Diagnoses: Pneumonia, Bronchitis, Influenza, Lower Resp. Infection Review of Systems - Review Of Systems Constitutional: Reports: Malaise Eyes: Reports: No symptoms Ears, Nose, Mouth, Throat: Reports: No symptoms Respiratory: Reports: Cough, Wheezing Cardiac: Reports: No symptoms GI: Reports: No symptoms : Reports: No symptoms Musculoskeletal: Reports: No symptoms Skin: Reports: No symptoms Neurological: Reports: No symptoms Endocrine: Reports: No symptoms Hematologic/Lymphatic: Reports: No symptoms All Other Systems: Reviewed and Negative Past Medical History - Past Medical History Previously Healthy: Yes Endocrine: Reports: None Cardiovascular: Reports: None Respiratory: Reports: None Hematological: Reports: None Gastrointestinal: Reports: None, Liver (STENT TO LIVER AND PANCREAS) Genitourinary: Reports: None Neuro/Psych: Reports: Migraine, Anxiety, Depression Musculoskeletal: Reports: None Cancer: Reports: None Last Menstrual Period: none Other Pertinent Past Medical History: right big toenail has grown deformed point upward since trauma 10 years ago - Surgical History General Surgical History: Reports: Hysterectomy, Cholecystectomy - Family History Family History: Reports: Unknown - Social History Smoking Status: Current every day smoker, Light tobacco smoker Hx Substance Use: No Alcohol Screening: Occasionally Physical Exam - Physical Exam Appearance: Well-appearing, No pain distress, Well-nourished Eyes: ARTEMIO, EOMI, Conjunctiva clear ENT: Ears normal, Nose normal, Oropharynx normal Respiratory: Breath sounds diminished, Rhonchi, Wheezes Cardiovascular: RRR, Pulses normal, No rub, No murmur GI/: Soft, Nontender, No masses, Bowel sounds normal, No Organomegaly Musculoskeletal: Normal strength, ROM intact, No edema, No calf tenderness Skin: Warm, Dry, Normal color Neurological: Sensation intact, Motor intact, Reflexes intact, Cranial nerves intact, Alert, Oriented Psychiatric: Affect appropriate, Mood appropriate Interpretation - Radiology Interpretation Radiology Interpretation By: Radiologist Critical Care Note - Critical Care Note Total Time (mins): 0 Course - Course Orders, Labs, Meds: Orders Category Date Time Status CBC W/ AUTO DIFF Stat LAB 11/20/17 18:30 Ordered COMPREHENSIVE METABOLIC PANEL Stat LAB 11/20/17 18:30 Ordered FLU A/B MOLECULAR Stat LAB 11/20/17 18:30 Uncollected MOLECULAR GROUP A STREP Stat LAB 11/20/17 18:30 Uncollected Ceftriaxone Sodium [Rocephin] MEDS 11/20/17 18:32 Stat 1 gm IM ONCE STA Dexamethasone 4 mg/ml Inj [Decadron 4 mg/ml Sdv] MEDS 11/20/17 18:32 Stat 4 mg IM ONCE STA Lidocaine HCl/Pf [Lidocaine HCl 1% Sdv] MEDS 11/20/17 18:32 Stat 2.1 ml IM ONCE STA CT CHEST W/O CONTRAST Stat RADS 11/20/17 18:26 Ordered Medications Discontinued Medications Generic Name Dose Route Start Last Admin Trade Name Cristopher PRN Reason Stop Dose Admin Ceftriaxone Sodium 1 gm 11/20/17 18:32 Rocephin IM 11/20/17 18:33 ONCE STA Dexamethasone Sodium Phosphate 4 mg 11/20/17 18:32 Decadron 4 Mg/Ml Sdv IM 11/20/17 18:33 ONCE STA Lidocaine HCl 2.1 ml 11/20/17 18:32 Lidocaine Hcl 1% Sdv IM 11/20/17 18:33 ONCE STA Vital Signs: Temp Pulse Resp BP Pulse Ox 11/20/17 18:17 99.3 F 86 18 98/59 L 97 Departure - Departure Time of Disposition: 18:40 Disposition: HOME SELF-CARE Discharge Problem: Cough, Bronchitis Instructions: Acute Bronchitis (ED), Wheezing (ED), Bronchospasm (ED), How Your Lungs Work (ED) Condition: Good Pt referred to PMD for follow-up: Yes IPMP verified?: No Additional Instructions: Please call your Family Physician as soon as possible to schedule a follow-up appointment. Allergies/Adverse Reactions: Allergies morphine Adverse Reaction (Verified 11/20/17 18:20) Swelling Home Medications: Ambulatory Orders Citalopram Hydrobromide [Celexa] 40 mg PO BEDTIME 02/26/15 Ropinirole HCl [Requip] 2 mg PO BEDTIME 05/16/15 Lorazepam [Ativan] 2 mg PO QID 11/20/17 Temazepam [Restoril] 7.5 mg PO BEDTIME 11/20/17
[2017-11-20] MEDS ORDERED: DUONEB NEB STA (18:39)
--- NOTE | 2017-11-20 19:08 | CT ---
EXAM: CT chest without intravenous contrast 11/20/2017. Sagittal and coronal reformatted images obt ained HISTORY: Cough COMPARISON: 07/03/2016, 08/31/2014 FINDINGS: The heart size appears within normal limits. No pericardial effusion. There is no pulmonary consolidation, effusion or pneumothorax. The lungs appear normally aerated. Limited views of the upper abdomen show no acute process. Chronic expansile lytic process within the proximal right tenth rib demonstrates long-term stability. This appears benign. 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 IMPRESSION: No acute cardiopulmonary process.
== END 2017-11-20 19:43 | disposition home or self-care (01) ==
LOC: ED 18:16
DX: J20.9 Acute bronchitis, unspecified (principal)
CPT/HCPCS: 36415; 80053; 85025; 87502; 87651; 94640; 96372; 99283

== ENCOUNTER 2017-11-24 20:12 | Observation (INO) ==
[2017-11-24] MEDS ORDERED: SOLU-MEDROL 125 MG IVP STA (20:17)
[2017-11-24] MEDS ORDERED: DUONEB NEB STA (20:18)
[2017-11-24] MEDS ORDERED: XOPENEX 1.25 MG NEB STA (20:18)
--- NOTE | 2017-11-24 21:14 | ED.PDOC ---
General ED Provider: Dr. DREA WEBB-ER Chief Complaint: Respiratory Complaint Stated Complaint: im still coughing and wheezing--seen here on 11/20 and discharged with antbx, steroids but not getting better Time Seen by Physician: 20:20 Mode of Arrival: Walk-In Information Source: Patient Exam Limitations: No limitations Primary Care Provider: STEPHEN GAINES Nursing and Triage Documentation Reviewed and Agree: Yes Reviewed sepsis parameters & appropriate labs ordered?: Yes System Inflammatory Response Syndrome: Not Applicable Sepsis Protocol: For patient's 13 years and over: Temp is 96.8 and below OR 101 and greater Pulse >90 BPM Resp >20/minute Acutely Altered Mental Status Are patient's symptoms suggestive of a new infection, such as: -Pneumonia -Skin, Soft Tissue -Endocarditis -UTI -Bone, Joint Infection -Implantable Device -Acute Abdominal Infection -Wound Infection -Meningitis -Blood Stream Catheter Infection -Unknown Respiratory Complaint Exam - Respiratory Complaint/Exam Onset/Duration: several hours Symptoms Are: Still present Initial Severity: Mild Current Severity: Moderate Character: Reports: Productive cough Alleviating: Reports: Bronchodilators Associated Signs and Symptoms: Reports: Dyspnea, Chest pain, URI History of Healthcare-Acquired Pneumonia: No Status Asthmaticus Risk Factors: Reports: None Home Oxygen Use: No Recent Stress Test: No Recent Echo/LV Function: No Current Antibiotic Use: Yes Current Asthma Medication Use: No Respiratory Distress: Mild Inadequate Respiratory Effort: No Dysphagia Present: No Stridor Present: No JVD Present: No Accessory Muscle Use: No Retractions: Not Present Diminished Breath Sounds: Yes Prolonged Respiration: Expiratory phase Sinus Tenderness: None Grunting Respirations: No Kussmaul Respirations: No Differential Diagnoses: Bronchitis Non-Traumatic Chest Pain Syncope: EKG Performed Review of Systems - Review Of Systems Constitutional: Reports: No symptoms Eyes: Reports: No symptoms Ears, Nose, Mouth, Throat: Reports: No symptoms Respiratory: Reports: Cough, Wheezing Cardiac: Reports: No symptoms GI: Reports: No symptoms : Reports: No symptoms Musculoskeletal: Reports: No symptoms Skin: Reports: No symptoms Neurological: Reports: No symptoms Endocrine: Reports: No symptoms Hematologic/Lymphatic: Reports: No symptoms All Other Systems: Reviewed and Negative Past Medical History - Past Medical History Previously Healthy: Yes Endocrine: Reports: None Cardiovascular: Reports: None Respiratory: Reports: None Hematological: Reports: None Gastrointestinal: Reports: None, Liver (STENT TO LIVER AND PANCREAS) Genitourinary: Reports: None Neuro/Psych: Reports: Migraine, Anxiety, Depression Musculoskeletal: Reports: None Cancer: Reports: None Last Menstrual Period: PT HAS HAD PARTIAL HYSTERECTOMY Other Pertinent Past Medical History: right big toenail has grown deformed point upward since trauma 10 years ago - Surgical History General Surgical History: Reports: Hysterectomy, Cholecystectomy - Family History Family History: Reports: Unknown - Social History Smoking Status: Current every day smoker, Heavy tobacco smoker Hx Substance Use: No Alcohol Screening: Occasionally - Immunizations Tetanus Shot up to Date: Yes Physical Exam - Physical Exam Appearance: Well-appearing, No pain distress, Well-nourished Eyes: ARTEMIO, EOMI, Conjunctiva clear ENT: Ears normal, Nose normal, Oropharynx normal Neck: Supple Respiratory: Rhonchi, Wheezes Cardiovascular: RRR, Pulses normal, No rub, No murmur GI/: Soft Musculoskeletal: Normal strength, ROM intact, No edema, No calf tenderness Skin: Warm, Dry, Normal color Neurological: Sensation intact, Motor intact, Reflexes intact, Cranial nerves intact, Alert, Oriented Psychiatric: Affect appropriate, Mood appropriate Interpretation - Radiology Interpretation Radiology Interpretation By: ED Physician Radiology Results: Negative Exam Interpreted: Portable CXR - EKG Interpretation Time of EKG #1: 21:21 Rate: Normal Rhythm: Sinus Ectopy: None Girard: NL ST Segment: Normal Interpretation: nsr Physician Notification - Case Discussed Physician Notified: dr gaines Time of Notification: 21:21 Critical Care Note - Critical Care Note Total Time (mins): 0 Course - Course Hematology/Chemistry: 11/24/17 20:30 11/24/17 20:30 Orders, Labs, Meds: Lab Review 11/24/17 11/24/17 11/24/17 20:16 20:30 20:30 WBC 9.85 RBC 4.47 Hgb 13.9 Hct 40.8 MCV 91.3 MCH 31.1 H MCHC 34.1 RDW Coeff of Raf 13.2 Plt Count 229 Immature Gran % (Auto) 0.3 Neut % (Auto) 48.4 Lymph % (Auto) 38.2 [place] % (Auto) 6.1 Eos % (Auto) 6.5 Baso % (Auto) 0.5 Immature Gran # (Auto) 0.0 Neut # (Auto) 4.8 Lymph # (Auto) 3.8 H [place] # (Auto) 0.6 Eos # (Auto) 0.6 Baso # (Auto) 0.1 D-Dimer (Manual) Puncture Site Rrad O2 Saturation 93.0 L ABG pH 7.439 ABG pCO2 34.7 L ABG pO2 64.0 L ABG HCO3 23.5 ABG Total CO2 25 ABG Base Excess -1 Colin Test + FiO2 % 21.0 Sodium 142 Potassium 3.4 L Chloride 107 Carbon Dioxide 23 Anion Gap 15.4 BUN 15 Creatinine 0.79 Estimated GFR (MDRD) 83.00 BUN/Creatinine Ratio 18.98 Glucose 96 Calcium 9.5 Total Bilirubin 0.3 AST 22 ALT 40 Alkaline Phosphatase 67 B-Natriuretic Peptide Total Protein 6.8 Albumin 3.6 Globulin 3.2 Albumin/Globulin Ratio 1.13 11/24/17 11/24/17 20:30 20:30 WBC RBC Hgb Hct MCV MCH MCHC RDW Coeff of Raf Plt Count Immature Gran % (Auto) Neut % (Auto) Lymph % (Auto) [place] % (Auto) Eos % (Auto) Baso % (Auto) Immature Gran # (Auto) Neut # (Auto) Lymph # (Auto) [place] # (Auto) Eos # (Auto) Baso # (Auto) D-Dimer (Manual) 284.37 Puncture Site O2 Saturation ABG pH ABG pCO2 ABG pO2 ABG HCO3 ABG Total CO2 ABG Base Excess Colin Test FiO2 % Sodium Potassium Chloride Carbon Dioxide Anion Gap BUN Creatinine Estimated GFR (MDRD) BUN/Creatinine Ratio Glucose Calcium Total Bilirubin AST ALT Alkaline Phosphatase B-Natriuretic Peptide 13 Total Protein Albumin Globulin Albumin/Globulin Ratio Orders Category Date Time Status ABG DRAW REQUEST Stat CARDIO 11/24/17 20:17 Ordered EKG-(ED ONLY) Stat CARDIO 11/24/17 20:16 Ordered NEBULIZER TREATMENT Stat CARDIO 11/24/17 20:18 Ordered ED IV/MEDIPORT/POWERPORT .ONCE EMERGENCY 11/24/17 20:17 Active ABG Stat LAB 11/24/17 20:16 Completed B-TYPE NATRIURETIC PEPTIDE Stat LAB 11/24/17 20:30 Completed CBC W/ AUTO DIFF Stat LAB 11/24/17 20:30 Completed COMPREHENSIVE METABOLIC PANEL Stat LAB 11/24/17 20:30 Completed D-DIMER Stat LAB 11/24/17 20:30 Completed 0.9 % Sodium Chloride [Saline Flush] MEDS 11/24/17 20:17 Ordered 1 syr IVF PRN PRN Ipratropium/Albuterol Neb [Duoneb] MEDS 11/24/17 20:18 Discontinued 1 vial NEB ONCE STA Levalbuterol HCl [Xopenex 1.25 mg] MEDS 11/24/17 20:18 Discontinued 1 vial NEB ONCE STA Methylprednisolone Sod Succ/Pf [Solu-Medrol 125 mg] MEDS 11/24/17 20:17 Discontinued 125 mg IVP ONCE STA CXR [CHEST, 1V AP ONLY] Stat RADS 11/24/17 20:18 Taken Medications Generic Name Dose Route Start Last Admin Trade Name Freq PRN Reason Stop Dose Admin Sodium Chloride 1 syr 11/24/17 20:17 11/24/17 20:59 Saline Flush IVF 1 syr PRN PRN Administration To flush IV Discontinued Medications Generic Name Dose Route Start Last Admin Trade Name Freq PRN Reason Stop Dose Admin Albuterol/Ipratropium 1 vial 11/24/17 20:18 11/24/17 20:50 Duoneb NEB 11/24/17 20:19 1 vial ONCE STA Administration Levalbuterol HCl 1 vial 11/24/17 20:18 11/24/17 21:02 Xopenex 1.25 Mg NEB 11/24/17 20:19 1 vial ONCE STA Administration Methylprednisolone Sodium Succinate 125 mg 11/24/17 20:17 11/24/17 20:56 Solu-Medrol 125 Mg IVP 11/24/17 20:18 125 mg ONCE STA Administration Vital Signs: Temp Pulse Resp BP Pulse Ox 11/24/17 20:13 99 F 91 H 24 123/78 96 Departure - Departure Time of Disposition: 21:21 Disposition: ADMITTED INPATIENT Discharge Problem: Bronchitis Instructions: Acute Bronchitis (ED) Condition: Good Pt referred to PMD for follow-up: Yes IPMP verified?: No Allergies/Adverse Reactions: Allergies morphine Adverse Reaction (Verified 11/24/17 20:21) Swelling Home Medications: Ambulatory Orders Citalopram Hydrobromide [Celexa] 40 mg PO BEDTIME 02/26/15 Ropinirole HCl [Requip] 2 mg PO BEDTIME 05/16/15 Hydrocodone/Chlorphen Polis [Tussionex] 5 ml PO Q12H 5 Days disp.syrin Lorazepam [Ativan] 2 mg PO QID 11/20/17 Temazepam [Restoril] 7.5 mg PO BEDTIME 11/20/17 Disposition Discussed With: Patient, Family
[2017-11-24] MEDS ORDERED: NORCO 7.5-325 PO STA (21:28)
[2017-11-24 22:29] VITALS: BMI 42.6
[2017-11-24] MEDS ORDERED: ROCEPHIN ONE (22:33)
[2017-11-24] MEDS ORDERED: ATIVAN PO ONE (22:40)
[2017-11-24] MEDS ORDERED: REQUIP PO ONE (22:41)
[2017-11-24] MEDS ORDERED: RESTORIL PO ONE (22:41)
[2017-11-24] MEDS: SODIUM CHLORIDE 1,000 ML IV SCH (22:49)
[2017-11-24] MEDS: ROCEPHIN 1 GM in SODIUM CHLORIDE 50 ML IV SCH (22:50)
[2017-11-24] MEDS: SYMBICORT 160-4.5 MCG INHALER IH SCH (22:50)
[2017-11-24] MEDS: SOLU-MEDROL 40 MG IVP SCH (22:50)
[2017-11-24] MEDS ORDERED: SODIUM CHLORIDE 50 ML IV ONE (22:50)
[2017-11-24] MEDS: MUCINEX PO SCH (22:51)
[2017-11-24] MEDS ORDERED: CELEXA PO ONE (23:00)
[2017-11-24] MEDS: RESTORIL PO SCH (23:07)
[2017-11-24] MEDS: DUONEB NEB SCH (23:43)
[2017-11-25] MEDS: NICODERM 21 MG TD SCH (04:42)
[2017-11-25] MEDS: DUONEB NEB SCH ×4 (04:44→19:40)
[2017-11-25] MEDS: ROBITUSSIN AC SYRUP PO PRN ×3 (05:36→18:54)
[2017-11-25] MEDS: TORADOL IVP PRN ×3 (05:36→22:36)
--- NOTE | 2017-11-25 07:36 | DI ---
EXAM: CHEST FRONTAL VIEW HISTORY: Cough. COMPARISON: 07/11/2015 FINDINGS: Low lung volumes limit the exam. Heart size is within normal limits. No acute infiltrates are seen. No vascular congestion. There is no consolidation, visible pleural fluid or pneumothorax . Bones reveal no acute fracture. IMPRESSION: Limited exam. No acute cardiopulmonary process identified.
[2017-11-25] MEDS ORDERED: NON-FORMULARY MEDICATION (Lorazepam [Ativan] 2 MG) PO SCH ×2 (09:00)
[2017-11-25] MEDS ORDERED: ATIVAN PO SCH (09:00)
[2017-11-25] MEDS: SOLU-MEDROL 40 MG IVP SCH ×4 (09:05→21:25)
[2017-11-25] MEDS: SYMBICORT 160-4.5 MCG INHALER IH SCH ×2 (09:50→21:25)
[2017-11-25] MEDS: ROCEPHIN 1 GM in SODIUM CHLORIDE 50 ML IV SCH (09:51)
[2017-11-25] MEDS: ATIVAN PO SCH ×2 (09:53→14:46)
[2017-11-25] MEDS: MUCINEX PO SCH ×2 (09:54→21:26)
[2017-11-25] MEDS: LOVENOX SUBCUT SCH (09:55)
[2017-11-25] MEDS: SODIUM CHLORIDE 1,000 ML IV SCH (14:37)
[2017-11-25] MEDS ORDERED: ATIVAN PO STA (20:26)
[2017-11-25] MEDS ORDERED: TEMAZEPAM 7.5 MG PO SCH (21:00)
[2017-11-25] MEDS ORDERED: CELEXA PO SCH (21:00)
[2017-11-25] MEDS ORDERED: REQUIP PO SCH (21:00)
[2017-11-25] MEDS ORDERED: NON-FORMULARY MEDICATION (Ropinirole Hcl [Requip] 2 MG) PO SCH (21:00)
[2017-11-25] MEDS: RESTORIL PO SCH (21:25)
[2017-11-26] MEDS: SODIUM CHLORIDE 1,000 ML IV SCH (03:25)
[2017-11-26] MEDS: DUONEB NEB SCH ×3 (05:10→14:17)
[2017-11-26] MEDS: SYMBICORT 160-4.5 MCG INHALER IH SCH (10:00)
[2017-11-26] MEDS: ATIVAN PO SCH ×2 (10:02→14:47)
[2017-11-26] MEDS: ROBITUSSIN AC SYRUP PO PRN (10:02)
[2017-11-26] MEDS: MUCINEX PO SCH (10:03)
[2017-11-26] MEDS: TORADOL IVP PRN (10:03)
[2017-11-26] MEDS: ROCEPHIN 1 GM in SODIUM CHLORIDE 50 ML IV SCH (10:03)
[2017-11-26] MEDS: NICODERM 21 MG TD SCH (10:03)
[2017-11-26] MEDS: SOLU-MEDROL 40 MG IVP SCH ×3 (10:03→17:00)
[2017-11-26] MEDS: LOVENOX SUBCUT SCH (10:05)
[2017-11-26 18:33] VITALS: BP 146/89; TEMP 98.4
== END 2017-11-26 18:25 | disposition home or self-care (01) ==
LOC: ED 20:12 → INTOOBSV 21:32 → MEDSURG B 21:32
PROVIDERS: ADMIT Family Medicine; ATTEND Family Medicine
DX: J40 Bronchitis, not specified as acute or chronic (principal); R05 Cough; E87.6 Hypokalemia; R73.9 Hyperglycemia, unspecified; R06.2 Wheezing; R07.9 Chest pain, unspecified; F17.210 Nicotine dependence, cigarettes, uncomplicated; Z79.899 Other long term (current) drug therapy; Z96.89 Presence of other specified functional implants
CPT/HCPCS: 36415; 80053; 82803; 83880; 85025; 85379; 93005; 93010; 94640; 96374; 97802; 99284

== ENCOUNTER 2017-12-06 10:12 | Outpatient (CLI) ==
--- NOTE | 2017-12-06 12:13 | DI ---
EXAM: Chest two view, frontal and lateral views. HISTORY: Pneumonia. COMPARISON: 11/24/2017, 11/20/2017. FINDINGS: The heart size is normal. There is no pulmonary vascular congestion. The lungs are clear . No pleural effusion or pneumothorax is seen. No acute osseous abnormality identified. Clips seen in the upper abdomen. Since the prior study, there has been no significant interval change. IMPRESSION: No acute cardiopulmonary process.
== END 2017-12-06 10:13 | disposition home or self-care (01) ==
LOC: RAD 10:12
PROVIDERS: ATTEND Family Medicine
DX: J18.9 Pneumonia, unspecified organism (principal); R05 Cough

== ENCOUNTER 2017-12-12 10:03 | Emergency (ER) ==
[2017-12-12 10:07] VITALS: BP 130/88; TEMP 99.2; BMI 42.5
--- NOTE | 2017-12-12 10:45 | ED.PDOC ---
General ED Provider: Dr. DREA CHAU Chief Complaint: Shortness of Air Stated Complaint: SHORTNESS OF BREATH, PERSISTENT COUGH AND UPPER ANTERIOR AND POSTERIOR CHEST WALL PAIN Time Seen by Physician: 10:25 Mode of Arrival: Walk-In Information Source: Patient Exam Limitations: No limitations Primary Care Provider: STEPHEN FARRIS Nursing and Triage Documentation Reviewed and Agree: Yes Reviewed sepsis parameters & appropriate labs ordered?: Yes System Inflammatory Response Syndrome: Not Applicable Sepsis Protocol: For patient's 13 years and over: Temp is 96.8 and below OR 101 and greater Pulse >90 BPM Resp >20/minute Acutely Altered Mental Status Are patient's symptoms suggestive of a new infection, such as: -Pneumonia -Skin, Soft Tissue -Endocarditis -UTI -Bone, Joint Infection -Implantable Device -Acute Abdominal Infection -Wound Infection -Meningitis -Blood Stream Catheter Infection -Unknown System Inflammatory Response Syndrome: Not Applicable Respiratory Complaint Exam - Respiratory Complaint/Exam Symptoms Are: Still present Timing: Intermittent Initial Severity: Severe Current Severity: Mild Location: Throat, Chest Character: Reports: Non-productive cough, Dry cough, Bronchospastic cough Aggravating: Reports: URI, Passive smoke exposure (PLUS ACTIVE SMOKE EXPOSURE) Alleviating: Reports: Bronchodilators, Steriods, Antibiotics Associated Signs and Symptoms: Reports: Dyspnea, Chest pain, Pleuritic chest pain, URI, Sore throat. Denies: Rapid breathing, Fever, Chills, Wheezing, Hemoptysis, Dizziness, Calf pain, Calf swelling, Edema, Nasal congestion, Hoarseness, Sinus discomfort, Vomiting, Weight loss, Decreased oral intake, Increased thirst, Increased appetite, Increased urination Related History: Reports: Similar episode Related Surgical History: Reports: None Pulmonary Embolism Risk Factors: None Cardiac Risk Factors: Reports: None Pseudomonas Risk Factors: Reports: None Tuberculosis Risk Factors: Reports: None Status Asthmaticus Risk Factors: Reports: Recent steriods, Recent admissions, Smoke exposure Home Oxygen Use: No Recent Stress Test: No Recent Echo/LV Function: No Current Antibiotic Use: No Current Asthma Medication Use: No Respiratory Distress: None Inadequate Respiratory Effort: No Dysphagia Present: No Stridor Present: No JVD Present: No Accessory Muscle Use: No Retractions: Not Present Diminished Breath Sounds: No Sinus Tenderness: None Grunting Respirations: No Review of Systems - Review Of Systems Constitutional: Reports: No symptoms Eyes: Reports: No symptoms Ears, Nose, Mouth, Throat: Reports: No symptoms Respiratory: Reports: Cough, Short of air, Other (Chest wall pain ) Cardiac: Reports: No symptoms GI: Reports: No symptoms : Reports: No symptoms Musculoskeletal: Reports: No symptoms Skin: Reports: No symptoms Neurological: Reports: No symptoms Endocrine: Reports: No symptoms Hematologic/Lymphatic: Reports: No symptoms All Other Systems: Reviewed and Negative Past Medical History - Past Medical History Previously Healthy: Yes Endocrine: Reports: None Cardiovascular: Reports: None Respiratory: Reports: None Hematological: Reports: None Gastrointestinal: Reports: None, Liver (STENT TO LIVER AND PANCREAS) Genitourinary: Reports: None Neuro/Psych: Reports: Migraine, Anxiety, Depression Musculoskeletal: Reports: None Cancer: Reports: None Last Menstrual Period: n/a Other Pertinent Past Medical History: right big toenail has grown deformed point upward since trauma 10 years ago - Surgical History General Surgical History: Reports: Hysterectomy, Cholecystectomy - Family History Family History: Reports: Unknown - Social History Smoking Status: Current every day smoker, Heavy tobacco smoker Hx Substance Use: No (1 carton in 3 weeks) Alcohol Screening: Occasionally Physical Exam - Physical Exam Appearance: Well-appearing, No pain distress, Well-nourished Eyes: ARTEMIO, EOMI, Conjunctiva clear ENT: Ears normal, Nose normal, Oropharynx normal Respiratory: Airway patent, Breath sounds clear, Breath sounds equal, Respirations nonlabored Cardiovascular: RRR, Pulses normal, No rub, No murmur GI/: Soft, Nontender, No masses, Bowel sounds normal, No Organomegaly Musculoskeletal: Normal strength (positive lt anterior and posterior chest wall tenderness in costal-sternal and C-Vertebral region s 1-2 L/>R), ROM intact, No edema, No calf tenderness Skin: Warm, Dry, Normal color Neurological: Sensation intact, Motor intact, Reflexes intact, Cranial nerves intact, Alert, Oriented Psychiatric: Affect appropriate, Mood appropriate Critical Care Note - Critical Care Note Total Time (mins): 60 (Monitored respiratory status, consulted with physician, reviewed testing with patient) Course - Course Hematology/Chemistry: 12/12/17 11:20 12/12/17 11:20 Orders, Labs, Meds: Lab Review 12/12/17 12/12/17 12/12/17 10:56 11:20 11:20 WBC 8.67 RBC 4.40 Hgb 13.7 Hct 40.4 MCV 91.8 MCH 31.1 H MCHC 33.9 RDW Coeff of Raf 13.5 Plt Count 215 Immature Gran % (Auto) 0.3 Neut % (Auto) 85.2 Lymph % (Auto) 10.1 Mathews % (Auto) 3.0 Eos % (Auto) 0.9 Baso % (Auto) 0.5 Immature Gran # (Auto) 0.0 Neut # (Auto) 7.4 H Lymph # (Auto) 0.9 Mathews # (Auto) 0.3 L Eos # (Auto) 0.1 Baso # (Auto) 0.0 Puncture Site R rad O2 Saturation 98.0 ABG pH 7.399 ABG pCO2 33.1 L ABG pO2 97.0 ABG HCO3 20.5 L ABG Total CO2 21 L ABG Base Excess -4 L Colin Test + FiO2 % 21.0 Sodium 137 Potassium 4.3 Chloride 109 H Carbon Dioxide 19 L Anion Gap 13.3 BUN 12 Creatinine 0.71 Estimated GFR (MDRD) 94.00 BUN/Creatinine Ratio 16.90 Glucose 99 Calcium 9.5 Total Bilirubin 0.4 AST 20 ALT 79 H Alkaline Phosphatase 56 Total Protein 6.7 Albumin 3.6 Globulin 3.1 Albumin/Globulin Ratio 1.16 Urine Color Urine Clarity Urine pH Ur Specific [place] Urine Protein Urine Glucose (UA) Urine Ketones Urine Blood Urine Nitrite Urine Bilirubin Urine Urobilinogen Ur Leukocyte Esterase Urine Microscopic RBC Urine Microscopic WBC Ur Squamous Epith Cells 12/12/17 11:55 WBC RBC Hgb Hct MCV MCH MCHC RDW Coeff of Raf Plt Count Immature Gran % (Auto) Neut % (Auto) Lymph % (Auto) [place] % (Auto) Eos % (Auto) Baso % (Auto) Immature Gran # (Auto) Neut # (Auto) Lymph # (Auto) [place] # (Auto) Eos # (Auto) Baso # (Auto) Puncture Site O2 Saturation ABG pH ABG pCO2 ABG pO2 ABG HCO3 ABG Total CO2 ABG Base Excess Colin Test FiO2 % Sodium Potassium Chloride Carbon Dioxide Anion Gap BUN Creatinine Estimated GFR (MDRD) BUN/Creatinine Ratio Glucose Calcium Total Bilirubin AST ALT Alkaline Phosphatase Total Protein Albumin Globulin Albumin/Globulin Ratio Urine Color Yellow Urine Clarity Clear Urine pH 5.5 Ur Specific [place] 1.025 Urine Protein Negative Urine Glucose (UA) Negative Urine Ketones Negative Urine Blood Trace-lysed Urine Nitrite Negative Urine Bilirubin Negative Urine Urobilinogen 0.2 Ur Leukocyte Esterase Negative Urine Microscopic RBC 0-2 Urine Microscopic WBC 0-2 Ur Squamous Epith Cells 5-10 Orders Category Date Time Status ABG DRAW REQUEST Stat CARDIO 12/12/17 10:56 Completed NEBULIZER TREATMENT Stat CARDIO 12/12/17 10:50 Completed ABG Stat LAB 12/12/17 10:56 Completed CBC W/ AUTO DIFF Stat LAB 12/12/17 11:20 Completed CMP [COMPREHENSIVE METABOLIC PANEL] Stat LAB 12/12/17 11:20 Completed M. PNEUMONIA IgG/IgM ABS Stat LAB 12/12/17 11:20 Received RAPID STREP SCREEN [MOLECULAR GROUP A STREP] Stat LAB 12/12/17 11:17 Completed UA [URINALYSIS C & S IF INDICATED] Stat LAB 12/12/17 11:55 Completed Ipratropium/Albuterol Neb [Duoneb] MEDS 12/12/17 10:50 Discontinued 1 vial NEB ONCE STA CHEST, 2 VIEWS PA & LAT Stat RADS 12/12/17 10:56 Completed Medications Discontinued Medications Generic Name Dose Route Start Last Admin Trade Name Freq PRN Reason Stop Dose Admin Albuterol/Ipratropium 1 vial 12/12/17 10:50 12/12/17 11:06 Duoneb NEB 12/12/17 10:51 1 vial ONCE STA Administration Vital Signs: Temp Pulse Resp BP Pulse Ox 12/12/17 10:03 99.2 F 90 20 130/88 97 Departure - Departure Time of Disposition: 12:40 Disposition: HOME SELF-CARE Discharge Problem: Chest wall pain, Pneumonia Instructions: Chest Pain (ED), Dextromethorphan (By mouth) Condition: Good Pt referred to PMD for follow-up: Yes (Dr Farris) IPMP verified?: No Additional Instructions: Take Mucinex 1 twice daily for congestion Remain on Inhalers as directed Keep appointment with Dr Farris and for additional evaluation as necessary Allergies/Adverse Reactions: Allergies morphine Adverse Reaction (Verified 12/12/17 10:08) Swelling Home Medications: Ambulatory Orders Citalopram Hydrobromide [Celexa] 40 mg PO BEDTIME 02/26/15 Ropinirole HCl [Requip] 2 mg PO BEDTIME 05/16/15 Lorazepam [Ativan] 2 mg PO BID 11/20/17 Temazepam [Restoril] 15 mg PO BEDTIME 11/24/17 Albuterol Sulfate [Proair Hfa] 2 puff IH QID #1 puff 11/26/17 Budesonide/Formoterol Fumarate [Symbicort 160-4.5 Mcg Inhaler] 2 puff IH BID inh 11/26/17 Sumatriptan Succinate [Imitrex] 50 mg PO 1-2XD PRN 11/26/17 Disposition Discussed With: Patient, Other (Dr Farris)
[2017-12-12] MEDS ORDERED: DUONEB NEB STA (10:50)
--- NOTE | 2017-12-12 11:39 | DI ---
Exam: Two x-rays of the chest. Comparison: 12/06/2017. Reason for exam: Cough with a history of pneumonia FINDINGS: Pneumothorax, pleural effusion, or focal consolidation. The cardiac silhouette is not enl arged. The imaged osseous structures appear grossly unremarkable without acute fracture. Impression: No acute cardiopulmonary process.
== END 2017-12-12 13:02 | disposition home or self-care (01) ==
LOC: ED 10:03
DX: J18.9 Pneumonia, unspecified organism (principal); R07.89 Other chest pain; F17.210 Nicotine dependence, cigarettes, uncomplicated
CPT/HCPCS: 36415; 80053; 81001; 82803; 85025; 86738; 87651; 94640; 99283

== ENCOUNTER 2017-12-21 23:10 | Emergency (ER) ==
[2017-12-21 23:22] VITALS: BP 108/73; TEMP 98.3; BMI 42.4
[2017-12-21] MEDS ORDERED: LACTATED RINGERS 1,000 ML IV STA (23:43)
[2017-12-21] MEDS ORDERED: ZOFRAN 4 MG/2 ML IVP STA (23:43)
[2017-12-21] MEDS ORDERED: TORADOL IVP STA (23:47)
--- NOTE | 2017-12-22 | ED.PDOC ---
General ED Provider: Dr. KAIT TEIXEIRA Chief Complaint: Abdominal Pain Stated Complaint: Patient states she has had epigastric abodominal pain for two days Time Seen by Physician: 23:45 Mode of Arrival: Walk-In Information Source: Patient Exam Limitations: No limitations Primary Care Provider: STEPHEN BENTON Nursing and Triage Documentation Reviewed and Agree: Yes Reviewed sepsis parameters & appropriate labs ordered?: No System Inflammatory Response Syndrome: Not Applicable Sepsis Protocol: For patient's 13 years and over: Temp is 96.8 and below OR 101 and greater Pulse >90 BPM Resp >20/minute Acutely Altered Mental Status Are patient's symptoms suggestive of a new infection, such as: -Pneumonia -Skin, Soft Tissue -Endocarditis -UTI -Bone, Joint Infection -Implantable Device -Acute Abdominal Infection -Wound Infection -Meningitis -Blood Stream Catheter Infection -Unknown GI Complaint Exam - Abdominal Pain Complaint/Exam Onset: Gradual Duration: 2 days Symptoms Are: Still present Timing: Constant Initial Severity: Moderate Current Severity: Severe Location of Pain: Epigastric Radiates To: Reports: Back Character: Reports: Aching, Throbbing Aggravating: Reports: Food Alleviating: Reports: None Associated Signs and Symptoms: Reports: Back pain, Nausea, Vomiting. Denies: Diaphoresis, Fever, Cough, Chest pain, Dizziness, Constipation, Dysuria, Urinary frequency, Decreased urine output, Vaginal bleeding, Vaginal discharge, Diarrhea, Sore throat AAA Risk Factors: Reports: None Cardiac Risk Factors: Reports: None Ectopic Risk Factors: Reports: None Ovarian Torsion Risk Factors: Reports: Reproductive age, Hysterectomy Surgical Obstruction Risk Factors: Reports: None Related Surgical History: Reports: Cholecystectomy Patient Rh Status: Unknown Abdominal Findings: Absent: Rebound tenderness, Peritoneal signs, McBurney's Point tender Review of Systems - Review Of Systems Constitutional: Reports: No symptoms Eyes: Reports: No symptoms Ears, Nose, Mouth, Throat: Reports: No symptoms Respiratory: Reports: No symptoms Cardiac: Reports: No symptoms GI: Reports: Abdominal pain, Nausea, Poor appetite, Poor fluid intake, Vomiting : Reports: No symptoms Musculoskeletal: Reports: Back pain Skin: Reports: No symptoms Neurological: Reports: No symptoms Endocrine: Reports: No symptoms Hematologic/Lymphatic: Reports: No symptoms All Other Systems: Reviewed and Negative Past Medical History - Past Medical History Previously Healthy: Yes Endocrine: Reports: None Cardiovascular: Reports: None Respiratory: Reports: None Hematological: Reports: None Gastrointestinal: Reports: Liver (STENT TO LIVER AND PANCREAS), Pancreatitis Genitourinary: Reports: None Neuro/Psych: Reports: Migraine, Anxiety, Depression Musculoskeletal: Reports: None Cancer: Reports: None Last Menstrual Period: UNKNOWN Other Pertinent Past Medical History: right big toenail has grown deformed point upward since trauma 10 years ago - Surgical History General Surgical History: Reports: Hysterectomy, Cholecystectomy, Stent Placement (on pancrease ) - Family History Family History: Reports: Unknown - Social History Smoking Status: Current every day smoker, Light tobacco smoker Hx Substance Use: No (1 carton in 3 weeks) Alcohol Screening: Occasionally Physical Exam - Physical Exam Appearance: Ill-appearing, Obese Ill-appearing: Moderate Pain Distress: Severe Eyes: ARTEMIO, EOMI, Conjunctiva clear Neck: Supple GI/: Soft, Bowel sounds normal, Tender Musculoskeletal: Normal strength, ROM intact, No edema, No calf tenderness Skin: Warm, Dry, Normal color Neurological: Alert, Oriented Psychiatric: Anxious Critical Care Note - Critical Care Note Total Time (mins): 0 Course - Course Hematology/Chemistry: 12/21/17 23:55 12/21/17 23:55 Orders, Labs, Meds: Lab Review 12/21/17 12/21/17 12/21/17 23:55 23:55 23:55 WBC 9.04 RBC 4.82 Hgb 15.0 Hct 44.0 MCV 91.3 MCH 31.1 H MCHC 34.1 RDW Coeff of Raf 13.2 Plt Count 243 Immature Gran % (Auto) 0.2 Neut % (Auto) 51.5 Lymph % (Auto) 35.6 Grand % (Auto) 7.2 Eos % (Auto) 4.9 Baso % (Auto) 0.6 Immature Gran # (Auto) 0.0 Neut # (Auto) 4.7 Lymph # (Auto) 3.2 Grand # (Auto) 0.7 Eos # (Auto) 0.4 Baso # (Auto) 0.1 Sodium 137 Potassium 3.9 Chloride 106 Carbon Dioxide 20 L Anion Gap 14.9 BUN 15 Creatinine 0.83 Estimated GFR (MDRD) 79.00 BUN/Creatinine Ratio 18.07 Glucose 102 Calcium 10.0 Total Bilirubin 0.3 AST 20 ALT 40 Alkaline Phosphatase 73 Total Protein 7.3 Albumin 3.9 Globulin 3.4 Albumin/Globulin Ratio 1.15 Amylase 38 Lipase 43 Urine Color Yellow Urine Clarity Slightly Urine pH 5.5 Ur Specific [place] >=1.030 Urine Protein Negative Urine Glucose (UA) Negative Urine Ketones Negative Urine Blood Negative Urine Nitrite Negative Urine Bilirubin 1+ Urine Urobilinogen 0.2 Ur Leukocyte Esterase Negative Orders Category Date Time Status ED IV/MEDIPORT/POWERPORT .ONCE EMERGENCY 12/21/17 23:43 Active AMYLASE Stat LAB 12/21/17 23:55 Completed CBC W/ AUTO DIFF Stat LAB 12/21/17 23:55 Completed COMPREHENSIVE METABOLIC PANEL Stat LAB 12/21/17 23:55 Completed LIPASE Stat LAB 12/21/17 23:55 Completed URINALYSIS C & S IF INDICATED Stat LAB 12/21/17 23:55 Completed 0.9 % Sodium Chloride [Saline Flush] MEDS 12/21/17 23:43 Ordered 1 syr IVF PRN PRN Dicyclomine Inj [Bentyl] MEDS 12/22/17 01:06 Stat 20 mg IM ONCE STA Ketorolac Tromethamine [Toradol] MEDS 12/21/17 23:47 Discontinued 30 mg IVP ONCE STA Ondansetron HCl/Pf [Zofran 4 mg/2 ml] MEDS 12/21/17 23:43 Discontinued 4 mg IVP ONCE STA Pantoprazole Sodium [Protonix IV] MEDS 12/22/17 00:48 Discontinued 40 mg IVP ONCE STA Ringers Lactated Solution [Lactated Ringers] 1,000 ml MEDS 12/21/17 23:43 Discontinued IV BOLUS Medications Generic Name Dose Route Start Last Admin Trade Name Freq PRN Reason Stop Dose Admin Sodium Chloride 1 syr 12/21/17 23:43 12/22/17 00:55 Saline Flush IVF 1 syr PRN PRN Administration To flush IV Discontinued Medications Generic Name Dose Route Start Last Admin Trade Name Freq PRN Reason Stop Dose Admin Lactated Ringer's 1,000 mls @ 1,000 mls/hr 12/21/17 23:43 12/21/17 23:57 Lactated Ringers IV 12/22/17 00:42 1,000 mls/hr BOLUS STA Administration Ketorolac Tromethamine 30 mg 12/21/17 23:47 12/22/17 00:03 Toradol IVP 12/21/17 23:48 30 mg ONCE STA Administration Ondansetron HCl 4 mg 12/21/17 23:43 12/21/17 23:59 Zofran 4 Mg/2 Ml IVP 12/21/17 23:44 4 mg ONCE STA Administration Pantoprazole Sodium 40 mg 12/22/17 00:48 12/22/17 00:51 Protonix Iv IVP 12/22/17 00:49 40 mg ONCE STA Administration Vital Signs: Temp Pulse Resp BP Pulse Ox 12/21/17 23:11 98.3 F 77 20 108/73 98 Departure - Departure Time of Disposition: 01:06 Disposition: HOME SELF-CARE Discharge Problem: Abdominal pain Instructions: Abdominal Pain (ED) Condition: Stable Pt referred to PMD for follow-up: Yes IPMP verified?: No Additional Instructions: Push fluids Follow up with PCP in 3 days Take medications as prescribed. Prescriptions: Dicyclomine HCl [Bentyl] 10 mg PO TID PRN #20 capsule PRN Reason: Abdominal Pain Ondansetron HCl [Zofran Tab] 4 mg PO Q8H PRN #14 tablet PRN Reason: Nausea / Vomiting Allergies/Adverse Reactions: Allergies morphine Adverse Reaction (Verified 12/21/17 23:20) Swelling Home Medications: Ambulatory Orders Citalopram Hydrobromide [Celexa] 40 mg PO DAILY 02/26/15 Ropinirole HCl [Requip] 2 mg PO BEDTIME 05/16/15 Lorazepam [Ativan] 2 mg PO BID 11/20/17 Temazepam [Restoril] 15 mg PO BEDTIME 11/24/17 Albuterol Sulfate [Proair Hfa] 2 puff IH QID #1 puff 11/26/17 Budesonide/Formoterol Fumarate [Symbicort 160-4.5 Mcg Inhaler] 2 puff IH BID inh 11/26/17 Sumatriptan Succinate [Imitrex] 50 mg PO 1-2XD PRN 11/26/17 Omeprazole [Prilosec] 20 mg PO QDAC 12/21/17 Dicyclomine HCl [Bentyl] 10 mg PO TID PRN #20 capsule 12/22/17 Ondansetron HCl [Zofran Tab] 4 mg PO Q8H PRN #14 tablet 12/22/17 Disposition Discussed With: Patient
[2017-12-22] MEDS ORDERED: PROTONIX IV IVP STA (00:48)
[2017-12-22] MEDS ORDERED: BENTYL IM STA (01:06)
== END 2017-12-22 01:36 | disposition home or self-care (01) ==
LOC: ED 23:10
DX: R10.13 Epigastric pain (principal); R11.2 Nausea with vomiting, unspecified; M54.9 Dorsalgia, unspecified; F17.210 Nicotine dependence, cigarettes, uncomplicated
CPT/HCPCS: 36415; 80053; 81001; 82150; 83690; 85025; 96361; 96372; 96374; 96375; 99283

== ENCOUNTER 2018-01-25 02:09 | Emergency (ER) ==
[2018-01-25 02:20] VITALS: BP 117/80; TEMP 97.3; BMI 43.0
--- NOTE | 2018-01-25 02:58 | ED.PDOC ---
General ED Provider: Dr. CHERI NAM Chief Complaint: Kidney Stone Stated Complaint: Been hurting in the left lower back, has h/o kidney stones,. had some blood in urine Time Seen by Physician: 02:57 Mode of Arrival: Walk-In Information Source: Patient Primary Care Provider: STEPHEN BENTON Nursing and Triage Documentation Reviewed and Agree: Yes Does patient meet sepsis criteria?: No If yes, has appropriate treatment been initiated?: No System Inflammatory Response Syndrome: Not Applicable Sepsis Protocol: For patient's 13 years and over: Temp is 96.8 and below OR 101 and greater Pulse >90 BPM Resp >20/minute Acutely Altered Mental Status Are patient's symptoms suggestive of a new infection, such as: -Pneumonia -Skin, Soft Tissue -Endocarditis -UTI -Bone, Joint Infection -Implantable Device -Acute Abdominal Infection -Wound Infection -Meningitis -Blood Stream Catheter Infection -Unknown GI Complaint Exam - Abdominal Pain Complaint/Exam Onset: Gradual Symptoms Are: Still present Timing: Constant Initial Severity: Moderate Current Severity: Moderate Location of Pain: Discrete Radiates To: Reports: Back Character: Reports: Dull, Aching Aggravating: Reports: Movement Alleviating: Reports: None Associated Signs and Symptoms: Reports: Back pain, Dysuria, Urinary frequency. Denies: Diaphoresis, Fever, Cough, Chest pain, Dizziness, Constipation, Blood in stool, Decreased urine output, Decreased appetite, Vaginal bleeding, Vaginal discharge, Nausea, Vomiting, Diarrhea, Sore throat, Decreased activity AAA Risk Factors: Reports: None Cardiac Risk Factors: Reports: None Ectopic Risk Factors: Reports: None Ovarian Torsion Risk Factors: Reports: None Surgical Obstruction Risk Factors: Reports: None Related Surgical History: Reports: None Abdominal Findings: Absent: Pulsatile mass, Abdominal distention, Unequal femoral pulses Differential Diagnoses: Renal Colic Review of Systems - Review Of Systems Constitutional: Reports: No symptoms Eyes: Reports: No symptoms Ears, Nose, Mouth, Throat: Reports: No symptoms Respiratory: Reports: No symptoms Cardiac: Reports: No symptoms GI: Reports: Abdominal pain : Reports: No symptoms Musculoskeletal: Reports: Back pain Skin: Reports: No symptoms Neurological: Reports: No symptoms Endocrine: Reports: No symptoms Hematologic/Lymphatic: Reports: No symptoms All Other Systems: Reviewed and Negative Past Medical History - Past Medical History Previously Healthy: Yes Endocrine: Reports: None Cardiovascular: Reports: None Respiratory: Reports: None Hematological: Reports: None Gastrointestinal: Reports: Liver (STENT TO LIVER AND PANCREAS), Pancreatitis Genitourinary: Reports: None Neuro/Psych: Reports: Migraine, Anxiety, Depression Musculoskeletal: Reports: None Cancer: Reports: None Last Menstrual Period: na Other Pertinent Past Medical History: right big toenail has grown deformed point upward since trauma 10 years ago - Surgical History General Surgical History: Reports: Hysterectomy, Cholecystectomy, Stent Placement (on pancrease ) - Family History Family History: Reports: Unknown - Social History Smoking Status: Current every day smoker, Light tobacco smoker Smoking Cessation Counseling Time: > 10 min Hx Substance Use: No (1 carton in 3 weeks) Alcohol Screening: Occasionally - Immunizations Tetanus Shot up to Date: Yes Physical Exam - Physical Exam Appearance: Ill-appearing, Obese Eyes: ARTEMIO, EOMI, Conjunctiva clear ENT: Ears normal, Nose normal, Oropharynx normal Respiratory: Airway patent, Breath sounds clear, Breath sounds equal, Respirations nonlabored Cardiovascular: RRR, Pulses normal, No rub, No murmur GI/: Soft, Nontender, No masses, Bowel sounds normal, No Organomegaly Musculoskeletal: Normal strength, ROM intact, No edema, No calf tenderness Skin: Warm, Dry, Normal color Neurological: Sensation intact, Motor intact, Reflexes intact, Cranial nerves intact, Alert, Oriented Psychiatric: Affect appropriate, Mood appropriate Interpretation - Radiology Interpretation Radiology Interpretation By: Radiologist Radiology Results: Positive Exam Interpreted: CT Scan Critical Care Note - Critical Care Note Total Time (mins): 30 Course - Course Orders, Labs, Meds: Lab Review 01/25/18 02:20 Urine Color Yellow Urine Clarity Clear Urine pH 5.5 Ur Specific [place] 1.025 Urine Protein Negative Urine Glucose (UA) Negative Urine Ketones Negative Urine Blood Negative Urine Nitrite Negative Urine Bilirubin Negative Urine Urobilinogen 0.2 Ur Leukocyte Esterase Negative Orders Category Date Time Status UA [URINALYSIS C & S IF INDICATED] Stat LAB 01/25/18 02:20 Completed Ketorolac Tromethamine [Toradol] MEDS 01/25/18 03:02 Discontinued 60 mg IM ONCE STA Ondansetron HCl/Pf [Zofran 4 mg/2 ml] MEDS 01/25/18 03:02 Discontinued 4 mg IM ONCE STA CT ABDOMEN/PELVIS WO CONTRAST Stat RADS 01/25/18 03:01 Completed Medications Discontinued Medications Generic Name Dose Route Start Last Admin Trade Name Freq PRN Reason Stop Dose Admin Ketorolac Tromethamine 60 mg 01/25/18 03:02 01/25/18 03:11 Toradol IM 01/25/18 03:03 60 mg ONCE STA Administration Ondansetron HCl 4 mg 01/25/18 03:02 01/25/18 03:12 Zofran 4 Mg/2 Ml IM 01/25/18 03:03 4 mg ONCE STA Administration Vital Signs: Temp Pulse Resp BP Pulse Ox 01/25/18 02:12 97.3 F L 65 18 117/80 98 Departure - Departure Time of Disposition: 04:15 Disposition: HOME SELF-CARE Discharge Problem: Kidney stone, Renal colic on left side Back pain Qualifiers: Back pain location: low back pain Chronicity: acute Back pain laterality: left Sciatica presence: without sciatica Qualified Code(s): M54.5 - Low back pain Instructions: Low Back Strain (ED), Renal Colic (ED) Condition: Stable Pt referred to PMD for follow-up: Yes IPMP verified?: No Additional Instructions: rest Increase Hydration Hot pack keep f/u with PMD Prescriptions: Cyclobenzaprine HCl [Flexeril] 5 mg PO BID #14 tablet Allergies/Adverse Reactions: Allergies morphine Adverse Reaction (Verified 12/21/17 23:20) Swelling Home Medications: Ambulatory Orders Citalopram Hydrobromide [Celexa] 40 mg PO DAILY 02/26/15 Ropinirole HCl [Requip] 2 mg PO BEDTIME 05/16/15 Lorazepam [Ativan] 2 mg PO BID 11/20/17 Temazepam [Restoril] 15 mg PO BEDTIME 11/24/17 Albuterol Sulfate [Proair Hfa] 2 puff IH QID #1 puff 11/26/17 Budesonide/Formoterol Fumarate [Symbicort 160-4.5 Mcg Inhaler] 2 puff IH BID inh 11/26/17 Sumatriptan Succinate [Imitrex] 50 mg PO 1-2XD PRN 11/26/17 Omeprazole [Prilosec] 20 mg PO QDAC 12/21/17 Ondansetron HCl [Zofran Tab] 4 mg PO Q8H PRN #14 tablet 12/22/17 Cyclobenzaprine HCl [Flexeril] 5 mg PO BID #14 tablet 01/25/18 Hydrocodone/Acetaminophen [[place] 5-325 Tablet] 1 tab PO TID PRN #12 tablet 01/25 Tamsulosin HCl [Flomax] 0.4 mg PO DAILY #10 cap.er.24h 01/25/18 Disposition Discussed With: Patient, Family
[2018-01-25] MEDS ORDERED: ZOFRAN 4 MG/2 ML IM STA (03:02)
[2018-01-25] MEDS ORDERED: TORADOL IM STA (03:02)
--- NOTE | 2018-01-25 03:56 | CT ---
EXAM: CT abdomen pelvis without intravenous contrast 01/25/2018. Sagittal and coronal reformatted i mages obtained HISTORY: Abdominal pain COMPARISON: 09/24/2017 FINDINGS: 3 mm diameter stone is present within the proximal left ureter. This causes moderate left hydronephrosis. This can be seen on axial series image 91. The liver shows no acute abnormality. Gallbladder has been removed. The adrenal glands, right kidney, spleen and pancreas show no acute process. There is no bowel obstr uction. The appendix is normal. Unremarkable urinary bladder. No free air or free fluid. No acute osseous abnormality. IMPRESSION: 3 mm diameter stone within the proximal left ureter causes moderate left hydronephrosis.
[2018-01-25] MEDS ORDERED: FLOMAX PO STA (04:12)
== END 2018-01-25 04:31 | disposition home or self-care (01) ==
LOC: ED 02:09
DX: N20.0 Calculus of kidney (principal); M54.5 Low back pain; Z87.442 Personal history of urinary calculi; F17.210 Nicotine dependence, cigarettes, uncomplicated
CPT/HCPCS: 81001; 96372; 99283

== ENCOUNTER 2018-02-05 18:29 | Emergency (ER) ==
[2018-02-05 18:46] VITALS: BP 130/85; TEMP 98.9; BMI 41.5
--- NOTE | 2018-02-05 19:38 | CT ---
Exam: CT of the abdomen and pelvis without contrast History: Back pain and hematuria Technique: [address] of the abdomen and pelvis without intravascular contrast FINDINGS: The lung bases are clear. No significant liver abnormality. The adrenals, pancreas and spl een are unremarkable. The stomach and hiatus are unremarkable.Prior cholecystectomy. There is mild l eft nephrosis and proximal hydroureter. There is a 3 mm mid ureteral calculus. The appendix is not confidently seen. Bowel loops demonstrate normal caliber. No inflamatory change seen in the mesentery or retroperitoneum. Vascular structures appear normal by noncontrast CT. Prior hysterectomy. Otherwise, pelvic genitourinary structures appear normal. Pelvic bowel loops are unremarkable. No inflammatory change in the pelvic fat. No acute abnormality of the abdominal or pel liana skeleton. Impression: 1. Mild left hydronephrosis and hydroureter with mid ureteral calculus unchanged in position from .
[2018-02-05] MEDS ORDERED: FLOMAX PO STA (19:41)
[2018-02-05] MEDS ORDERED: NORCO 7.5-325 PO STA (19:41)
[2018-02-05] MEDS ORDERED: ZOFRAN TAB PO STA (19:41)
--- NOTE | 2018-02-05 19:45 | ED.PDOC ---
General ED Provider: Dr. DREA WEBB-ER Chief Complaint: Back Pain Stated Complaint: yamil got a stone Time Seen by Physician: 18:50 Mode of Arrival: Walk-In Information Source: Patient Exam Limitations: No limitations Primary Care Provider: STEPHEN BENTON Nursing and Triage Documentation Reviewed and Agree: Yes Does patient meet sepsis criteria?: No System Inflammatory Response Syndrome: Not Applicable Sepsis Protocol: For patient's 13 years and over: Temp is 96.8 and below OR 101 and greater Pulse >90 BPM Resp >20/minute Acutely Altered Mental Status Are patient's symptoms suggestive of a new infection, such as: -Pneumonia -Skin, Soft Tissue -Endocarditis -UTI -Bone, Joint Infection -Implantable Device -Acute Abdominal Infection -Wound Infection -Meningitis -Blood Stream Catheter Infection -Unknown Complaint Exam - Complaint/Exam Patient Complains of: Reports: Pain Symptoms Are: Still present Initial Severity: Mild Current Severity: Moderate Location of Pain: Reports: Left, Flank, Suprapubic, Radiating Character: Reports: Burning, Constant pressure, Dull, Cramping Aggravating: Reports: None Alleviating: Reports: None Associated Signs and Symptoms: Reports: Back pain, Abdominal Pain RH Status: Unknown Differential Diagnoses: Ureteral Stone Review of Systems - Review Of Systems Constitutional: Reports: No symptoms Eyes: Reports: No symptoms Ears, Nose, Mouth, Throat: Reports: No symptoms Respiratory: Reports: No symptoms Cardiac: Reports: No symptoms GI: Reports: No symptoms : Reports: Flank pain, Hematuria Musculoskeletal: Reports: No symptoms Skin: Reports: No symptoms Neurological: Reports: No symptoms Endocrine: Reports: No symptoms Hematologic/Lymphatic: Reports: No symptoms All Other Systems: Reviewed and Negative Past Medical History - Past Medical History Previously Healthy: Yes Endocrine: Reports: None Cardiovascular: Reports: None Respiratory: Reports: None Hematological: Reports: None Gastrointestinal: Reports: Liver (STENT TO LIVER AND PANCREAS), Pancreatitis Genitourinary: Reports: None Neuro/Psych: Reports: Migraine, Anxiety, Depression Musculoskeletal: Reports: None Cancer: Reports: None Last Menstrual Period: na Other Pertinent Past Medical History: right big toenail has grown deformed point upward since trauma 10 years ago - Surgical History General Surgical History: Reports: Hysterectomy, Cholecystectomy, Stent Placement (on pancrease ) - Family History Family History: Reports: Unknown - Social History Smoking Status: Current some day smoker Hx Substance Use: No Alcohol Screening: Occasionally - Immunizations Tetanus Shot up to Date: Yes Physical Exam - Physical Exam Appearance: Well-appearing, No pain distress, Well-nourished Pain Distress: Moderate Eyes: ARTEMIO, EOMI, Conjunctiva clear ENT: Ears normal Neck: Supple Respiratory: Airway patent Cardiovascular: RRR, Pulses normal, No rub, No murmur GI/: Soft, Nontender, No masses, Bowel sounds normal, No Organomegaly Musculoskeletal: Normal strength, ROM intact, No edema, No calf tenderness Skin: Warm, Dry, Normal color Neurological: Sensation intact, Motor intact, Reflexes intact, Cranial nerves intact, Alert, Oriented Psychiatric: Affect appropriate, Mood appropriate, Anxious Interpretation - Radiology Interpretation Radiology Interpretation By: Radiologist Radiology Results: Positive Exam Interpreted: CT Scan ("3mm mid ureteral calculus") Critical Care Note - Critical Care Note Total Time (mins): 0 Course - Course Orders, Labs, Meds: Lab Review 02/05/18 18:50 Urine Color Dark Urine Clarity Cloudy Urine pH 6.0 Ur Specific [place] >=1.030 Urine Protein 1+ Urine Glucose (UA) Negative Urine Ketones Negative Urine Blood 3+ Urine Nitrite Negative Urine Bilirubin 1+ Urine Urobilinogen 0.2 Ur Leukocyte Esterase Negative Urine Microscopic RBC Tntc Urine Microscopic WBC 2-5 Ur Squamous Epith Cells 2-5 Urine Bacteria 1+ Orders Category Date Time Status URINALYSIS C & S IF INDICATED Stat LAB 02/05/18 18:50 Completed URINE CULTURE Stat LAB 02/05/18 18:50 Received Hydrocodone Bit/Acetaminophen [[place] 7.5-325] MEDS 02/05/18 19:41 Discontinued 1 tab PO ONCE STA Ondansetron HCl [Zofran Tab] MEDS 02/05/18 19:41 Discontinued 4 mg PO ONCE STA Tamsulosin HCl [Flomax] MEDS 02/05/18 19:41 Discontinued 0.4 mg PO ONCE STA CT ABD/PEL WO RENAL STONE PROT Stat RADS 02/05/18 18:51 Completed Medications Discontinued Medications Generic Name Dose Route Start Last Admin Trade Name Freq PRN Reason Stop Dose Admin Hydrocodone Bitart/Acetaminophen 1 tab 02/05/18 19:41 [place] 7.5-325 PO 02/05/18 19:42 ONCE STA Ondansetron HCl 4 mg 02/05/18 19:41 Zofran Tab PO 02/05/18 19:42 ONCE STA Tamsulosin HCl 0.4 mg 02/05/18 19:41 Flomax PO 02/05/18 19:42 ONCE STA Vital Signs: Temp Pulse Resp BP Pulse Ox 02/05/18 18:41 98.9 F 92 H 16 130/85 96 Departure - Departure Time of Disposition: 19:45 Disposition: HOME SELF-CARE Discharge Problem: Ureteral stone with hydronephrosis Instructions: Ureteral Stones (ED) Condition: Good Pt referred to PMD for follow-up: No IPMP verified?: No Additional Instructions: percocet 7.5mg q 4hrs prn pain #10--toradol 10mg qid prn pain #16--zofran 4mg q 4hrs prn nausea #10---strain all urine---talk to dr caputo office in the am about urology referral Allergies/Adverse Reactions: Allergies morphine Adverse Reaction (Verified 02/05/18 18:48) Swelling Home Medications: Ambulatory Orders Citalopram Hydrobromide [Celexa] 40 mg PO DAILY 02/26/15 Ropinirole HCl [Requip] 2 mg PO BEDTIME 05/16/15 Lorazepam [Ativan] 2 mg PO BID 11/20/17 Temazepam [Restoril] 15 mg PO BEDTIME 11/24/17 Albuterol Sulfate [Proair Hfa] 2 puff IH QID #1 puff 11/26/17 Budesonide/Formoterol Fumarate [Symbicort 160-4.5 Mcg Inhaler] 2 puff IH BID inh 11/26/17 Sumatriptan Succinate [Imitrex] 50 mg PO 1-2XD PRN 11/26/17 Omeprazole [Prilosec] 20 mg PO QDAC 12/21/17 Ondansetron HCl [Zofran Tab] 4 mg PO Q8H PRN #14 tablet 12/22/17 Cyclobenzaprine HCl [Flexeril] 5 mg PO BID #14 tablet 01/25/18 Hydrocodone/Acetaminophen [[place] 5-325 Tablet] 1 tab PO TID PRN #12 tablet 01/25 Tamsulosin HCl [Flomax] 0.4 mg PO DAILY #10 cap.er.24h 01/25/18 Disposition Discussed With: Patient, Family
== END 2018-02-05 20:12 | disposition home or self-care (01) ==
LOC: ED 18:29
DX: N13.2 Hydronephrosis with renal and ureteral calculous obstruction (principal); F17.210 Nicotine dependence, cigarettes, uncomplicated
CPT/HCPCS: 74176; 81001; 87086; 99283

== ENCOUNTER 2018-02-07 21:36 | Emergency (ER) ==
[2018-02-07 21:44] VITALS: BP 142/92; TEMP 99.3; BMI 42.1
--- NOTE | 2018-02-07 22:01 | ED.PDOC ---
General ED Provider: Dr. KAIT TEIXEIRA Chief Complaint: Urinary Problem Stated Complaint: Patient is a 32 year old male who comes to the ER with difficulty urinating and pain . He had renal stone removal today at [place]. Also complains of blood in urine. Time Seen by Physician: 21:59 Mode of Arrival: Walk-In Information Source: Patient Exam Limitations: No limitations Primary Care Provider: STEPHEN BENTON Nursing and Triage Documentation Reviewed and Agree: Yes Does patient meet sepsis criteria?: No System Inflammatory Response Syndrome: Not Applicable Sepsis Protocol: For patient's 13 years and over: Temp is 96.8 and below OR 101 and greater Pulse >90 BPM Resp >20/minute Acutely Altered Mental Status Are patient's symptoms suggestive of a new infection, such as: -Pneumonia -Skin, Soft Tissue -Endocarditis -UTI -Bone, Joint Infection -Implantable Device -Acute Abdominal Infection -Wound Infection -Meningitis -Blood Stream Catheter Infection -Unknown Review of Systems - Review Of Systems Constitutional: Reports: No symptoms Respiratory: Reports: No symptoms Cardiac: Reports: No symptoms GI: Reports: Abdominal pain, Nausea, Poor appetite : Reports: Hematuria Musculoskeletal: Reports: Back pain Skin: Reports: No symptoms Neurological: Reports: Anxiety All Other Systems: Reviewed and Negative Past Medical History - Past Medical History Previously Healthy: Yes Endocrine: Reports: None Cardiovascular: Reports: None Respiratory: Reports: None Hematological: Reports: None Gastrointestinal: Reports: Liver (STENT TO LIVER AND PANCREAS), Pancreatitis Genitourinary: Reports: Kidney stones Neuro/Psych: Reports: Migraine, Anxiety, Depression Musculoskeletal: Reports: None Cancer: Reports: None Last Menstrual Period: HYSTERECTOMY Other Pertinent Past Medical History: right big toenail has grown deformed point upward since trauma 10 years ago - Surgical History General Surgical History: Reports: Hysterectomy, Cholecystectomy, Stent Placement (on pancrease ) - Family History Family History: Reports: Unknown - Social History Smoking Status: Current some day smoker, Light tobacco smoker Hx Substance Use: No Alcohol Screening: None - Immunizations Tetanus Shot up to Date: Yes Physical Exam - Physical Exam Appearance: Ill-appearing, Obese Ill-appearing: Moderate Pain Distress: Severe ENT: Ears normal Respiratory: Airway patent GI/: Soft, Tender Musculoskeletal: Normal strength, ROM intact, No edema, No calf tenderness Skin: Warm, Dry Neurological: Sensation intact, Motor intact Psychiatric: Anxious Re-Evaluation - Re-Evaluation Time of Re-Evaluation: 23:54 Status: Improved Physician Notification - Case Discussed Physician Notified: Maria T Time of Notification: 23:45 (call urologist about hydronephrosis ) Physician Notified: Anita Time of Notification: 23:57 (Discharge home with pain control. Follow up with him on saturday. Call the clinic.) Critical Care Note - Critical Care Note Total Time (mins): 0 Comments: Discussed with Dr. Howard who stated that there is no need to transfer patient as he will not be taking her to the OR. Re recommended pain control at home with follow up with him on Saturday. Course - Course Hematology/Chemistry: 02/07/18 22:31 02/07/18 22:31 Orders, Labs, Meds: Lab Review 02/07/18 02/07/18 22:31 22:31 WBC 11.62 H RBC 4.57 Hgb 14.0 Hct 40.9 MCV 89.5 MCH 30.6 MCHC 34.2 RDW Coeff of Raf 12.9 Plt Count 232 Immature Gran % (Auto) 0.3 Neut % (Auto) 93.6 Lymph % (Auto) 5.3 L E[place] % (Auto) 0.6 Eos % (Auto) 0.0 Baso % (Auto) 0.2 Immature Gran # (Auto) 0.0 Neut # (Auto) 10.9 H Lymph # (Auto) 0.6 Ector # (Auto) 0.1 L Eos # (Auto) 0.0 Baso # (Auto) 0.0 Sodium 137 Potassium 4.0 Chloride 107 Carbon Dioxide 18 L Anion Gap 16.0 BUN 13 Creatinine 1.11 Estimated GFR (MDRD) 56.00 BUN/Creatinine Ratio 11.71 Glucose 137 H Calcium 9.7 Total Bilirubin 0.6 AST 28 ALT 44 Alkaline Phosphatase 60 Total Protein 7.3 Albumin 3.9 Globulin 3.4 Albumin/Globulin Ratio 1.15 Orders Category Date Time Status CBC W/ AUTO DIFF Stat LAB 02/07/18 22:31 Completed COMPREHENSIVE METABOLIC PANEL Stat LAB 02/07/18 22:31 Completed UA [URINALYSIS C & S IF INDICATED] Stat LAB 02/07/18 23:57 Ordered Butorphanol Tartrate [Stadol] MEDS 02/07/18 22:13 Discontinued 2 mg IVP ONCE STA Ketorolac Tromethamine [Toradol] MEDS 02/07/18 22:12 Discontinued 30 mg IVP ONCE STA Methylprednisolone Sod Succ/Pf [Solu-Medrol 125 mg] MEDS 02/07/18 23:16 Discontinued 125 mg .ROUTE .STK-MED ONE Methylprednisolone Sod Succ/Pf [Solu-Medrol 125 mg] MEDS 02/07/18 23:12 Discontinued 125 mg IVP ONCE STA Ondansetron HCl/Pf [Zofran 4 mg/2 ml] MEDS 02/07/18 22:13 Discontinued 4 mg IVP ONCE STA Sodium Chloride 0.9% [Sodium Chloride] 1,000 ml MEDS 02/07/18 22:[address] ABD/PEL WO RENAL STONE PROT Stat RADS 02/07/18 22:12 Completed Medications Discontinued Medications Generic Name Dose Route Start Last Admin Trade Name Yanivq PRN Reason Stop Dose Admin Butorphanol Tartrate 2 mg 02/07/18 22:13 02/07/18 22:28 Stadol IVP 02/07/18 22:14 2 mg ONCE STA Administration Sodium Chloride 1,000 mls @ 1,000 mls/hr 02/07/18 22:13 02/07/18 22:26 Sodium Chloride IV 02/07/18 23:12 1,000 mls/hr BOLUS STA Administration Ketorolac Tromethamine 30 mg 02/07/18 22:12 02/07/18 22:28 Toradol IVP 02/07/18 22:13 30 mg ONCE STA Administration Methylprednisolone Sodium Succinate 125 mg 02/07/18 23:12 02/07/18 23:17 Solu-Medrol 125 Mg IVP 02/07/18 23:13 125 mg ONCE STA Administration Ondansetron HCl 4 mg 02/07/18 22:13 02/07/18 22:29 Zofran 4 Mg/2 Ml IVP 02/07/18 22:14 4 mg ONCE STA Administration Vital Signs: Temp Pulse Resp BP Pulse Ox 02/07/18 21:37 99.3 F 102 H 20 142/92 H 97 Departure - Departure Time of Disposition: 00:07 Disposition: HOME SELF-CARE Discharge Problem: Urinary symptoms, Hydronephrosis due to obstruction of ureter Instructions: Hydronephrosis (ED) Condition: Stable Pt referred to PMD for follow-up: Yes IPMP verified?: No Additional Instructions: Take Pain medications as prescribed Follow up with Urologist in 3 days Prescriptions: Oxycodone-Acetaminophen 10-325 [Percocet 10-325] 1 tab PO Q4H #20 tablet Allergies/Adverse Reactions: Allergies morphine Adverse Reaction (Verified 02/07/18 21:40) Swelling Home Medications: Ambulatory Orders Citalopram Hydrobromide [Celexa] 40 mg PO DAILY 02/26/15 Ropinirole HCl [Requip] 2 mg PO BEDTIME 05/16/15 Lorazepam [Ativan] 2 mg PO BID 11/20/17 Temazepam [Restoril] 15 mg PO BEDTIME 11/24/17 Albuterol Sulfate [Proair Hfa] 2 puff IH QID #1 puff 11/26/17 Budesonide/Formoterol Fumarate [Symbicort 160-4.5 Mcg Inhaler] 2 puff IH BID inh 11/26/17 Sumatriptan Succinate [Imitrex] 50 mg PO 1-2XD PRN 11/26/17 Omeprazole [Prilosec] 20 mg PO QDAC 12/21/17 Ondansetron HCl [Zofran Tab] 4 mg PO Q8H PRN #14 tablet 12/22/17 Cyclobenzaprine HCl [Flexeril] 5 mg PO BID #14 tablet 01/25/18 Hydrocodone/Acetaminophen [[place] 5-325 Tablet] 1 tab PO TID PRN #12 tablet 01/25 Tamsulosin HCl [Flomax] 0.4 mg PO DAILY #10 cap.er.24h 01/25/18 Oxycodone-Acetaminophen 10-325 [Percocet 10-325] 1 tab PO Q4H #20 tablet Disposition Discussed With: Patient, Family
[2018-02-07] MEDS ORDERED: TORADOL IVP STA (22:12)
[2018-02-07] MEDS ORDERED: SODIUM CHLORIDE 1,000 ML IV STA (22:13)
[2018-02-07] MEDS ORDERED: ZOFRAN 4 MG/2 ML IVP STA (22:13)
[2018-02-07] MEDS ORDERED: STADOL IVP STA (22:13)
[2018-02-07] MEDS ORDERED: SOLU-MEDROL 125 MG IVP STA (23:12)
[2018-02-07] MEDS ORDERED: SOLU-MEDROL 125 MG ONE (23:16)
--- NOTE | 2018-02-07 23:18 | CT ---
EXAM: CT abdomen pelvis without intravenous contrast 02/07/2018. Sagittal and coronal reformatted i mages obtained HISTORY: Postoperative pain COMPARISON: 02/05/2018 FINDINGS: The liver shows no acute abnormality. Gallbladder has been removed. The adrenal glands a nd right kidney show no acute process. Left -sided hydroureteronephrosis appears unchanged as compared to examination performed 02/05/2018. The previously visualized ureteral stone is no longer identified. Hydroureter extends through the e ntirety of the ureter to the level of the urinary bladder. This could relate to stricture or possibl e post procedural edema at the ureterovesicular junction. The spleen and pancreas show no acute abnormality. There is no evidence of bowel obstruction. Normal appendix. A small amount of gas is present within the urinary bladder which may be within normal limits given r ecent postprocedural status. IMPRESSION: 1. Persistent left-sided hydroureteronephrosis. The degree of hydronephrosis is unchanged as compar ed to 02/05/2018. 2. Hydroureter extends throughout the entirety of the ureter to the level of the urinary bladder. T he previously described stone is no longer identified. This could relate to stricture or possible ed young at the level of the left ureterovesicular junction. Follow-up evaluation may be obtained as clini nicole indicated. 3. Additional findings as above.
== END 2018-02-08 00:25 | disposition home or self-care (01) ==
LOC: ED 21:36
DX: N13.1 Hydronephrosis with ureteral stricture, not elsewhere classified (principal); R30.0 Dysuria; R39.198 Other difficulties with micturition; R31.9 Hematuria, unspecified; F17.210 Nicotine dependence, cigarettes, uncomplicated; Z98.890 Other specified postprocedural states
CPT/HCPCS: 36415; 74176; 80053; 81001; 85025; 87086; 96361; 96374; 96375; 99283

== ENCOUNTER 2018-03-11 15:27 | Outpatient (CLI) | END 2018-03-11 15:28 | disposition home or self-care (01) | LOC: FCC-LAB 15:27 | PROVIDERS: ATTEND Family Medicine | DX: D72.829 Elevated white blood cell count, unspecified (principal); K21.9 Gastro-esophageal reflux disease without esophagitis; K86.1 Other chronic pancreatitis; R73.9 Hyperglycemia, unspecified; Z68.41 Body mass index [BMI] 40.0-44.9, adult | CPT/HCPCS: 36415; 80053; 80061; 83037; 84443; 85025 ==

== ENCOUNTER 2018-03-14 12:09 | Outpatient (CLI) ==
--- NOTE | 2018-03-14 14:52 | US ---
EXAM: Thyroid ultrasound. History: Difficulty swallowing. Technique: Multiple sonographic images through the thyroid gland were obtained. Color duplex Dopple r was used to interrogate vascular flow. Findings: The right lobe of the thyroid measures 4.3 cm x 1.7 cm x 1.3 cm and demonstrates heterogeneous echote xture without discrete nodule identified. The thyroid isthmus measures 0.4 cm in thickness. The left lobe of the thyroid measures 3.8 cm x 1.4 cm x 1.2 cm demonstrates heterogeneous echotexture without discrete nodule identified. The thyroid gland is not hypervascular. No extrathyroidal masses are identified. Impression: Generalized heterogeneous thyroid gland with no discrete nodule identified.
== END 2018-03-14 12:10 | disposition home or self-care (01) ==
LOC: RAD 12:09 → FCC-LAB 12:10
PROVIDERS: ATTEND Family Medicine
DX: R79.89 Other specified abnormal findings of blood chemistry (principal)
CPT/HCPCS: 36415; 84439; 84480

== ENCOUNTER 2018-03-20 10:12 | Outpatient (CLI) | END 2018-03-20 10:13 | disposition home or self-care (01) | LOC: FCC-LAB 10:12 | PROVIDERS: ATTEND Family Medicine | DX: R79.89 Other specified abnormal findings of blood chemistry (principal); E87.6 Hypokalemia | CPT/HCPCS: 36415; 80053; 83735; 84443 ==

== ENCOUNTER 2018-05-03 17:09 | Emergency (ER) ==
[2018-05-03 17:15] VITALS: BP 122/84; TEMP 99; BMI 41.3
--- NOTE | 2018-05-03 17:43 | ED.PDOC ---
General ED Provider: Dr. KAIT TEIXEIRA Chief Complaint: Chest Pain Stated Complaint: Pleuritic chest pain since 1 AM Time Seen by Physician: 17:43 Mode of Arrival: Walk-In Information Source: Patient Primary Care Provider: SAL HART Nursing and Triage Documentation Reviewed and Agree: Yes Does patient meet sepsis criteria?: No System Inflammatory Response Syndrome: Not Applicable Sepsis Protocol: For patient's 13 years and over: Temp is 96.8 and below OR 101 and greater Pulse >90 BPM Resp >20/minute Acutely Altered Mental Status Are patient's symptoms suggestive of a new infection, such as: -Pneumonia -Skin, Soft Tissue -Endocarditis -UTI -Bone, Joint Infection -Implantable Device -Acute Abdominal Infection -Wound Infection -Meningitis -Blood Stream Catheter Infection -Unknown Cardiovascular Complaint Exam - Chest Pain Complaint/Exam Onset: Gradual Duration: 15 hours Symptoms Are: Still present Timing: Intermittent Initial Severity: Moderate Current Severity: Moderate Location: Reports: Left anterior Pain Radiates: Reports: None Character: Reports: Sharp Aggravating: Reports: Deep breaths Alleviating: Reports: None Associated Signs and Symptoms: Denies: Diaphoresis, Nausea, Vomiting, Fever, Palpitations, Cough, Hemoptysis, Back pain, Abdominal pain, Dizziness, Short of air, Calf pain, Calf swelling Related History: Reports: Similar episode Related Surgical History: Reports: None History of Healthcare-Acquired Pneumonia: Reports: No AMI/ACS Risk Factors: Reports: None TAD Risk Factors: Reports: None Pulmonary Embolism Risk Factors: Reports: None Prior Care for this Complaint: No Recent Stress Test: No Recent Echo/LV Function: No JVD Present: No Subcutaneous Emphysema Present: No Diminshed Breath Sounds: No Reproducible Chest Wall Pain: No Bilateral Pulses Present: No Unequal Pulses Noted: No If Risk Factors for AMI/ACS Consider: EKG, Cardiac Enzymes, Serial Studies Quality Indicators For Acute MS or Cardiac Chest Pain: EKG in 10min. Review of Systems - Review Of Systems Constitutional: Reports: No symptoms Eyes: Reports: No symptoms Ears, Nose, Mouth, Throat: Reports: No symptoms Respiratory: Reports: No symptoms Cardiac: Reports: Chest pain GI: Reports: No symptoms : Reports: No symptoms Musculoskeletal: Reports: No symptoms Skin: Reports: No symptoms Neurological: Reports: No symptoms Endocrine: Reports: No symptoms Hematologic/Lymphatic: Reports: No symptoms All Other Systems: Reviewed and Negative Past Medical History - Past Medical History Previously Healthy: Yes Endocrine: Reports: None Cardiovascular: Reports: None Respiratory: Reports: None Hematological: Reports: None Gastrointestinal: Reports: Liver (STENT TO LIVER AND PANCREAS), Pancreatitis Genitourinary: Reports: Kidney stones Neuro/Psych: Reports: Migraine, Anxiety, Depression Musculoskeletal: Reports: None Cancer: Reports: None Last Menstrual Period: NA Other Pertinent Past Medical History: right big toenail has grown deformed point upward since trauma 10 years ago - Surgical History General Surgical History: Reports: Hysterectomy, Cholecystectomy, Stent Placement (on pancrease ) - Family History Family History: Reports: Unknown - Social History Smoking Status: Current every day smoker Hx Substance Use: No Alcohol Screening: None - Immunizations Tetanus Shot up to Date: Yes Physical Exam - Physical Exam Appearance: Ill-appearing Ill-appearing: Mild Pain Distress: Moderate Respiratory: Airway patent, Breath sounds clear, Breath sounds equal, Respirations nonlabored Cardiovascular: RRR, Pulses normal, No rub, No murmur GI/: Soft, Nontender, No masses, Bowel sounds normal, No Organomegaly Musculoskeletal: Normal strength, ROM intact, No edema, No calf tenderness Skin: Warm, Dry, Normal color Neurological: Motor intact, Alert, Oriented Psychiatric: Anxious Interpretation - EKG Interpretation Time of EKG #1: 17:29 Rate: Normal Rhythm: Sinus Ectopy: None ST Segment: Normal Interpretation: Normal Sinus Rhythm Critical Care Note - Critical Care Note Total Time (mins): 0 Course - Course Hematology/Chemistry: 05/03/18 17:58 05/03/18 17:58 Orders, Labs, Meds: Lab Review 05/03/18 05/03/18 05/03/18 17:58 17:58 19:26 WBC 7.05 RBC 4.23 Hgb 13.2 Hct 38.3 MCV 90.5 MCH 31.2 H MCHC 34.5 RDW Coeff of Raf 13.2 Plt Count 209 Immature Gran % (Auto) 0.1 Neut % (Auto) 52.1 Lymph % (Auto) 35.5 [place] % (Auto) 5.2 Eos % (Auto) 6.7 Baso % (Auto) 0.4 Immature Gran # (Auto) 0.0 Neut # (Auto) 3.7 Lymph # (Auto) 2.5 [place] # (Auto) 0.4 Eos # (Auto) 0.5 Baso # (Auto) 0.0 Sodium 135.9 L Potassium 3.78 Chloride 108.1 H Carbon Dioxide 26.0 Anion Gap 5.58 BUN 13.5 Creatinine 0.60 Estimated GFR (MDRD) 114.00 BUN/Creatinine Ratio 22.50 Glucose 94.1 Calcium 8.74 Total Bilirubin 0.24 AST 28.7 ALT 24.2 Alkaline Phosphatase 57.3 Total Creatine Kinase 133.8 CK-MB (CK-2) 1.530 CK-MB (CK-2) % 1.1400 Troponin I < 0.012 < 0.012 Total Protein 6.22 L Albumin 3.66 Globulin 2.56 Albumin/Globulin Ratio 1.42 Orders Category Date Time Status EKG-(ED ONLY) Stat CARDIO 05/03/18 17:50 Completed CBC W/ AUTO DIFF Stat LAB 05/03/18 17:58 Completed COMPREHENSIVE METABOLIC PANEL Stat LAB 05/03/18 17:58 Completed CREATINE KINASE Stat LAB 05/03/18 17:58 Completed TROPONIN I Stat LAB 05/03/18 17:58 Completed TROPONIN I Stat LAB 05/03/18 19:26 Completed Hydrocodone Bit/Acetaminophen [[place] 7.5-325] MEDS 05/03/18 17:49 Discontinued 1 tab PO ONCE STA CHEST, 1V AP ONLY Stat RADS 05/03/18 17:50 Completed Medications Discontinued Medications Generic Name Dose Route Start Last Admin Trade Name Yanivq PRN Reason Stop Dose Admin Hydrocodone Bitart/Acetaminophen 1 tab 05/03/18 17:49 05/03/18 17:56 [place] 7.5-325 PO 05/03/18 17:50 1 tab ONCE STA Administration Vital Signs: Temp Pulse Resp BP Pulse Ox 05/03/18 17:10 99 F 66 16 122/84 97 JOVANNA Risk Score Age >/= 65: No >/= 3 CAD Risk Factors: No Known CAD (Stenosis >/= 50%): No ASA Use in Past 7 Days: No Severe Angina (>/= 2 episodes in 24 hours): No EKG ST Changes >/= 0.5mm: No JOVANNA Total Score: 0 JOVANNA Risk Score: Risk Score Odds of by 30D 0 0.1 (0.1-0.2) 1 0.3 (0.2-0.3) 2 0.4 (0.3-0.5) 3 0.7 (0.6-0.9) 4 1.2 (1.0-1.5) 5 2.2 (1.9-2.6) 6 3.0 (2.5-3.6) 7 4.8 (3.8-6.1) Departure - Departure Time of Disposition: 20:10 Disposition: HOME SELF-CARE Discharge Problem: Pleurisy without effusion Instructions: Pleurisy (ED) Condition: Good Pt referred to PMD for follow-up: Yes IPMP verified?: No Additional Instructions: Take pain medications as prescribed Follow up with PCP in 3 days Allergies/Adverse Reactions: Allergies morphine Adverse Reaction (Verified 05/03/18 17:18) Swelling Home Medications: Ambulatory Orders Citalopram Hydrobromide [Celexa] 40 mg PO BEDTIME 02/26/15 Lorazepam [Ativan] 2 mg PO BID 11/20/17 Albuterol Sulfate [Proair Hfa] 2 puff IH QID #1 puff 11/26/17 Sumatriptan Succinate [Imitrex] 50 mg PO 1-2XD PRN 11/26/17 Disposition Discussed With: Patient
[2018-05-03] MEDS ORDERED: NORCO 7.5-325 PO STA (17:49)
--- NOTE | 2018-05-04 06:59 | DI ---
EXAM: Single view chest. HISTORY: Chest pain, left upper chest wall COMPARISON: 12/12/2017 FINDINGS: The heart is normal in size. Pulmonary vascularity is within normal limits. No focal airsp saadia opacity or pleural effusion is seen. Osseous structures are unremarkable. Examination is limited by bilateral soft tissue summation. IMPRESSION: No acute cardiopulmonary findings on this limited exam.
== END 2018-05-03 20:13 | disposition home or self-care (01) ==
LOC: ED 17:09
DX: R09.1 Pleurisy (principal); F17.210 Nicotine dependence, cigarettes, uncomplicated
CPT/HCPCS: 36415; 80053; 82550; 82553; 84484; 85025; 93005; 93010; 99283

== ENCOUNTER 2018-06-08 22:45 | Emergency (ER) ==
[2018-06-08 22:58] VITALS: BP 112/78; TEMP 98.8; BMI 41.1
[2018-06-08] MEDS ORDERED: PROTONIX IV IVP STA (23:18)
[2018-06-08] MEDS ORDERED: SODIUM CHLORIDE 1,000 ML IV STA (23:18)
[2018-06-08] MEDS ORDERED: BENTYL IM STA (23:18)
[2018-06-08] MEDS ORDERED: ZOFRAN 4 MG/2 ML IVP STA (23:18)
--- NOTE | 2018-06-08 23:25 | ED.PDOC ---
General ED Provider: Dr. KAIT TEIXEIRA Chief Complaint: Abdominal Pain Stated Complaint: Patient complains of epigastric pain that radiates to the lower chest. Feels like her Pancreatitis pain. she states that she had stopped taking Priosec since it did not work. Time Seen by Physician: 23:00 Mode of Arrival: Walk-In Information Source: Patient Primary Care Provider: SAL HART Nursing and Triage Documentation Reviewed and Agree: Yes Does patient meet sepsis criteria?: No System Inflammatory Response Syndrome: Not Applicable Sepsis Protocol: For patient's 13 years and over: Temp is 96.8 and below OR 101 and greater Pulse >90 BPM Resp >20/minute Acutely Altered Mental Status Are patient's symptoms suggestive of a new infection, such as: -Pneumonia -Skin, Soft Tissue -Endocarditis -UTI -Bone, Joint Infection -Implantable Device -Acute Abdominal Infection -Wound Infection -Meningitis -Blood Stream Catheter Infection -Unknown Review of Systems - Review Of Systems Constitutional: Reports: No symptoms Cardiac: Reports: No symptoms GI: Reports: Abdominal pain, Nausea, Poor appetite : Reports: No symptoms Musculoskeletal: Reports: No symptoms Skin: Reports: No symptoms Neurological: Reports: Anxiety Endocrine: Reports: No symptoms Hematologic/Lymphatic: Reports: No symptoms All Other Systems: Reviewed and Negative Past Medical History - Past Medical History Previously Healthy: Yes Endocrine: Reports: None Cardiovascular: Reports: None Respiratory: Reports: None Hematological: Reports: None Gastrointestinal: Reports: GERD, Liver (STENT TO LIVER AND PANCREAS), Pancreatitis Genitourinary: Reports: Kidney stones Neuro/Psych: Reports: Migraine, Anxiety, Depression Musculoskeletal: Reports: None Cancer: Reports: None Last Menstrual Period: HAS HAD A PARTIAL HYSTERECTOMY Other Pertinent Past Medical History: right big toenail has grown deformed point upward since trauma 10 years ago - Surgical History General Surgical History: Reports: Hysterectomy, Cholecystectomy, Stent Placement (on pancrease ) - Family History Family History: Reports: Unknown - Social History Smoking Status: Current every day smoker, Heavy tobacco smoker Hx Substance Use: No Alcohol Screening: None - Immunizations Tetanus Shot up to Date: Yes Physical Exam - Physical Exam Appearance: Ill-appearing, Obese Ill-appearing: Moderate Pain Distress: Severe Eyes: ARTEMIO, EOMI, Conjunctiva clear Neck: Supple Respiratory: Airway patent, Breath sounds clear, Breath sounds equal, Respirations nonlabored Cardiovascular: Pulses normal GI/: Soft, Tender (epigastric area ) Musculoskeletal: Normal strength Skin: Warm, Dry Neurological: Alert, Oriented Psychiatric: Anxious, Depressed Interpretation - Radiology Interpretation Radiology Interpretation By: Radiologist Radiology Results: Negative Exam Interpreted: CT Scan Critical Care Note - Critical Care Note Total Time (mins): 0 Course - Course Hematology/Chemistry: 06/08/18 23:35 06/08/18 23:35 Orders, Labs, Meds: Lab Review 06/08/18 06/08/18 06/08/18 23:35 23:35 23:35 WBC 9.57 RBC 4.48 Hgb 13.8 Hct 40.7 MCV 90.8 MCH 30.8 MCHC 33.9 RDW Coeff of Raf 13.1 Plt Count 211 Immature Gran % (Auto) 0.2 Neut % (Auto) 56.4 Lymph % (Auto) 33.2 [place] % (Auto) 6.0 Eos % (Auto) 3.8 Baso % (Auto) 0.4 Immature Gran # (Auto) 0.0 Neut # (Auto) 5.4 Lymph # (Auto) 3.2 [place] # (Auto) 0.6 Eos # (Auto) 0.4 Baso # (Auto) 0.0 Sodium 141.0 Potassium 3.70 Chloride 107.0 Carbon Dioxide 26.0 Anion Gap 11.70 BUN 17.0 Creatinine 0.80 Estimated GFR (MDRD) 82.00 BUN/Creatinine Ratio 21.25 Glucose 99.0 Calcium 9.50 Total Bilirubin 0.30 AST 36.0 ALT 54.0 H Alkaline Phosphatase 61.0 Total Protein 7.30 Albumin 4.40 Globulin 2.90 Albumin/Globulin Ratio 1.51 Amylase 61.0 Lipase 105.0 Urine Color Yellow Urine Clarity Clear Urine pH 5.5 Ur Specific [place] >=1.030 Urine Protein Negative Urine Glucose (UA) Negative Urine Ketones Negative Urine Blood Negative Urine Nitrite Negative Urine Bilirubin Negative Urine Urobilinogen 0.2 Ur Leukocyte Esterase Negative Orders Category Date Time Status ED IV/MEDIPORT/POWERPORT .ONCE EMERGENCY 06/08/18 23:18 Active AMYLASE Stat LAB 06/08/18 23:35 Completed CBC W/ AUTO DIFF Stat LAB 06/08/18 23:35 Completed COMPREHENSIVE METABOLIC PANEL Stat LAB 06/08/18 23:35 Completed LIPASE Stat LAB 06/08/18 23:35 Completed URINALYSIS C & S IF INDICATED Stat LAB 06/08/18 23:35 Completed 0.9 % Sodium Chloride [Saline Flush] MEDS 06/08/18 23:18 Discontinued 1 syr IVF PRN PRN Dicyclomine Inj [Bentyl] MEDS 06/08/18 23:18 Discontinued 20 mg IM ONCE STA Ketorolac Tromethamine [Toradol] MEDS 06/08/18 23:55 Discontinued 30 mg IVP ONCE STA Ondansetron HCl/Pf [Zofran 4 mg/2 ml] MEDS 06/08/18 23:18 Discontinued 4 mg IVP ONCE STA Pantoprazole Sodium [Protonix IV] MEDS 06/08/18 23:18 Discontinued 40 mg IVP ONCE STA Sodium Chloride 0.9% [Sodium Chloride] 1,000 ml MEDS 06/08/18 23:[address] ABD/PEL WO RENAL STONE PROT Stat RADS 06/08/18 23:18 Completed Medications Discontinued Medications Generic Name Dose Route Start Last Admin Trade Name Freq PRN Reason Stop Dose Admin Dicyclomine HCl 20 mg 06/08/18 23:18 06/08/18 23:55 Bentyl IM 06/08/18 23:19 Not Given ONCE STA Sodium Chloride 1,000 mls @ 1,000 mls/hr 06/08/18 23:18 06/08/18 23:44 Sodium Chloride IV 06/09/18 00:17 1,000 mls/hr BOLUS STA Administration Ketorolac Tromethamine 30 mg 06/08/18 23:55 06/09/18 00:00 Toradol IVP 06/08/18 23:56 30 mg ONCE STA Administration Ondansetron HCl 4 mg 06/08/18 23:18 06/08/18 23:47 Zofran 4 Mg/2 Ml IVP 06/08/18 23:19 4 mg ONCE STA Administration Pantoprazole Sodium 40 mg 06/08/18 23:18 06/08/18 23:50 Protonix Iv IVP 06/08/18 23:19 40 mg ONCE STA Administration Sodium Chloride 1 syr 06/08/18 23:18 06/08/18 23:52 Saline Flush IVF 1 syr PRN PRN Administration To flush IV Vital Signs: Temp Pulse Resp BP Pulse Ox 06/08/18 22:46 98.8 F 76 20 112/78 97 Departure - Departure Time of Disposition: 00:10 Disposition: HOME SELF-CARE Discharge Problem: Abdominal pain, Chronic abdominal pain Instructions: Chronic Abdominal Pain (ED) Condition: Stable Pt referred to PMD for follow-up: Yes IPMP verified?: No Additional Instructions: Follow up with PCP in the morning. Take you Prolosac daily as prescribed for GERD Allergies/Adverse Reactions: Allergies morphine Adverse Reaction (Verified 06/08/18 22:58) Swelling Home Medications: Ambulatory Orders Citalopram Hydrobromide [Celexa] 40 mg PO BEDTIME 02/26/15 Lorazepam [Ativan] 2 mg PO BID 11/20/17 Sumatriptan Succinate [Imitrex] 50 mg PO 1-2XD PRN 11/26/17 Albuterol Sulfate [Proair Hfa] 2 puff IH QID PRN 06/08/18 Disposition Discussed With: Patient, Family
--- NOTE | 2018-06-08 23:47 | CT ---
EXAM: CT scan abdomen pelvis without contrast HISTORY: Abdominal pain COMPARISON: CT scan pelvis 02/07/2018 FINDINGS: Contiguous axial images obtained through the abdomen pelvis without contrast utilizing 3-m m collimation. Sagittal and coronal reconstructions were imaged and reviewed.. The visualized lung bases are clear. There has been prior cholecystectomy. The liver, pancreas, spleen and adrenal glan ds have normal unenhanced CT appearance. The abdominal aorta is normal course and caliber. The kidn eys are morphologically normal.. There is normal retrocecal appendix.. There is no free fluid or in flammatory changes.. Bone windows reveals no evidence of lytic or blastic lesions. IMPRESSION: "Status post cholecystectomy. No acute intra-abdominal findings. Normal appendix.
[2018-06-08] MEDS ORDERED: TORADOL IVP STA (23:55)
== END 2018-06-09 00:41 | disposition home or self-care (01) ==
LOC: ED 22:45
DX: R10.9 Unspecified abdominal pain (principal); G89.29 Other chronic pain; Z87.19 Personal history of other diseases of the digestive system; F17.210 Nicotine dependence, cigarettes, uncomplicated
CPT/HCPCS: 36415; 74176; 80053; 81001; 82150; 83690; 85025; 96361; 96374; 96375; 99283

== ENCOUNTER 2018-10-01 17:09 | Emergency (ER) | payer MEDICAID, OTHER ==
[2018-10-01 17:09] VITALS: BMI 41.1
[2018-10-01 17:15] VITALS: BP 148/93; TEMP 99.2
--- NOTE | 2018-10-01 17:30 | ED.PDOC ---
General ED Provider: Dr. WM MIRANDA Chief Complaint: Extremity Pain/Injury Stated Complaint: BACK PAIN LUMBAR, RX TO RIGHT LOWER LEG AMBULATORY IN THE E.D. NO INJURY REPORTED Time Seen by Physician: 17:10 (SEEN WITH ANDRIY AT ALL TIMES ) Mode of Arrival: Walk-In Information Source: Patient Exam Limitations: No limitations Primary Care Provider: SAL HART Nursing and Triage Documentation Reviewed and Agree: Yes Does patient meet sepsis criteria?: No System Inflammatory Response Syndrome: Not Applicable Sepsis Protocol: For patient's 13 years and over: Temp is 96.8 and below OR 101 and greater Pulse >90 BPM Resp >20/minute Acutely Altered Mental Status Are patient's symptoms suggestive of a new infection, such as: -Pneumonia -Skin, Soft Tissue -Endocarditis -UTI -Bone, Joint Infection -Implantable Device -Acute Abdominal Infection -Wound Infection -Meningitis -Blood Stream Catheter Infection -Unknown Musculoskeletal Complaint Exam - Lower Extremity Complaint/Exam Location of Pain: Reports: Right, Leg Mechanism of Injury: Reports: No known trauma Onset/Duration: CHRONIC ISSUE GETTING WORSE , NO URINARY ISSUES Symptoms Are: Resolved Initial Severity: Moderate Current Severity: Mild Alleviating: Reports: Rest Aggravating: Reports: Movement Able to Bear Weight: Yes Associated Signs and Symptoms: Denies: Swelling, Redness, Bruising, Fever, Weakness, Numbness, Tingling Related History: Reports: Similar episode DVT Risk Factors: Reports: None Septic Arthritis Risk Factors: Reports: None Related Surgical History: Reports: None Lower Extremity Findings: Absent: Swelling, Ecchymosis, Abnormal contour, Rotation, Ligamentous instability, Laceration, Erythema, Warmth, Blisters Mark's Sign Present: No Differential Diagnoses: Sciatica (NO EVIDENCE OF FOOT DROP. ), Strain, Sprain Review of Systems - Review Of Systems Constitutional: Reports: No symptoms Eyes: Reports: No symptoms Ears, Nose, Mouth, Throat: Reports: No symptoms Respiratory: Reports: No symptoms Cardiac: Reports: No symptoms GI: Reports: No symptoms : Reports: No symptoms Musculoskeletal: Reports: Back pain (RIGHT LEG PAIN) Skin: Reports: No symptoms Neurological: Reports: No symptoms Endocrine: Reports: No symptoms Hematologic/Lymphatic: Reports: No symptoms All Other Systems: Reviewed and Negative Past Medical History - Past Medical History Previously Healthy: Yes Endocrine: Reports: None Cardiovascular: Reports: None Respiratory: Reports: None Hematological: Reports: None Gastrointestinal: Reports: GERD, Liver (STENT TO LIVER AND PANCREAS), Pancreatitis Genitourinary: Reports: Kidney stones Neuro/Psych: Reports: Migraine, Anxiety, Depression Musculoskeletal: Reports: None Cancer: Reports: None Last Menstrual Period: none Other Pertinent Past Medical History: right big toenail has grown deformed point upward since trauma 10 years ago - Surgical History General Surgical History: Reports: Hysterectomy, Cholecystectomy, Stent Placement (on pancrease ) - Family History Family History: Reports: Unknown - Social History Smoking Status: Current every day smoker, Heavy tobacco smoker Hx Substance Use: No Alcohol Screening: None Physical Exam - Physical Exam Appearance: Well-appearing (S.L.R _RIGHT/ LEFT WNL. NEURO VASCULAR STATUS OF THE LOWER LIMB IS W.N.L. ), No pain distress, Well-nourished Eyes: ARTEMIO, EOMI, Conjunctiva clear ENT: Ears normal, Nose normal, Oropharynx normal Respiratory: Airway patent, Breath sounds clear, Breath sounds equal, Respirations nonlabored Cardiovascular: RRR, Pulses normal, No rub, No murmur GI/: Soft, Nontender, No masses, Bowel sounds normal, No Organomegaly Musculoskeletal: Normal strength, ROM intact, No edema, No calf tenderness Skin: Warm, Dry, Normal color Neurological: Sensation intact, Motor intact, Reflexes intact, Cranial nerves intact, Alert, Oriented Psychiatric: Affect appropriate, Mood appropriate Critical Care Note - Critical Care Note Total Time (mins): 0 Course - Course Hematology/Chemistry: 10/01/18 17:35 Orders, Labs, Meds: Lab Review 10/01/18 17:35 WBC 7.65 RBC 4.81 Hgb 14.5 Hct 43.8 MCV 91.1 MCH 30.1 MCHC 33.1 RDW Coeff of Raf 12.6 Plt Count 259 Immature Gran % (Auto) 0.4 Neut % (Auto) 58.8 Lymph % (Auto) 29.0 [place] % (Auto) 6.8 Eos % (Auto) 4.2 Baso % (Auto) 0.8 Immature Gran # (Auto) 0.0 Neut # (Auto) 4.5 Lymph # (Auto) 2.2 [place] # (Auto) 0.5 Eos # (Auto) 0.3 Baso # (Auto) 0.1 Orders Category Date Time Status CBC W/ AUTO DIFF Stat LAB 03/13/19 17:35 Completed COMPREHENSIVE METABOLIC PANEL Stat LAB 10/01/18 17:[address] LUMBAR SPINE W/O CONTRAST Stat RADS 10/01/18 17:27 Completed Vital Signs: Temp Pulse Resp BP Pulse Ox 10/01/18 17:09 99.2 F 93 H 18 148/93 H 96 Departure - Departure Time of Disposition: 18:51 (WITH ANDRIY AT BEDSIDE DISCUSSED THE RESULT OF THE C.T. LUMBAR SPINE . M.R.I AND DISEASE AT THE LEVEL OF L3-S1 DISCUSSED . PAIN MEDS Rx GIVEN) Disposition: HOME SELF-CARE Discharge Problem: Sciatica, right side Instructions: Sciatica (ED), Lumbar Radiculopathy (ED) Condition: Good Pt referred to PMD for follow-up: Yes IPMP verified?: No Additional Instructions: Please call your Family Physician as soon as possible to schedule a follow-up appointment.YOU ARE ABLE TO WALK , NO NO MOTOR ISSUES NOTED AT THIS TIME BUT I ; DO STRONGLY THINK IN ORDER TO FURTHER APPRECIATE THE NATURE OF THE PAIN WHICH YOU HAVE BEEN SUFFERING FROM , AN M.R.I OF THE LUMBAR SPINE IS MOST NEEDED. PLEASE SEE YOUR M.D FOR DISCUSSION OF THE M.R.I . Allergies/Adverse Reactions: Allergies morphine Adverse Reaction (Verified 10/01/18 17:15) Swelling Home Medications: Ambulatory Orders Citalopram Hydrobromide [Celexa] 40 mg PO BEDTIME 02/26/15 Sumatriptan Succinate [Imitrex] 50 mg PO 1-2XD PRN 11/26/17 Albuterol Sulfate [Proair Hfa] 2 puff IH QID PRN 06/08/18 Hydrocodone/Acetaminophen [[place] 5-325 Tablet] 1 each PO Q6HR PRN #7 tablet Disposition Discussed With: Patient
--- NOTE | 2018-10-01 18:06 | CT ---
EXAM: CT lumbar spine without contrast HISTORY: Back pain, numbness TECHNIQUE: Multi-slice transaxial helical with coronal and sagittal reformatted views. COMPARISON: 06/08/2018 FINDINGS: The visualized vertebral body heights and intervertebral disc spaces appear preserved. No evidence o f listhesis or spondylolysis is seen. No evidence of displaced lumbar fracture is seen. There is co ngenital shortening of the lower lumbar pedicles, which predisposes to a narrow central canal. Segmental analysis: T12-L3: No significant central canal or neural foraminal stenosis. L3-L4: Minimal circumferential disc bulge is seen which results in minimal central canal narrowing. No significant neural foraminal narrowing is seen. L4-L5: There is mild narrowing of the central canal secondary to circumferential disc bulge. No sign ificant neural foraminal stenosis is seen. L5-S1: Minimal circumferential disc bulge is seen which does not significantly narrow the central can al. No significant neural foraminal stenosis is seen. IMPRESSION: 1. No acute osseous abnormality. 2. Mild disc disease spanning L3-S1 as detailed above with up to mild narrowing of the central canal . No significant neural foraminal stenosis. 3. 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
== END 2018-10-01 19:00 | disposition home or self-care (01) ==
LOC: ED 17:09
DX: M54.5 Low back pain (principal); M79.661 Pain in right lower leg; M54.41 Lumbago with sciatica, right side
CPT/HCPCS: 36415; 80053; 85025; 99283

== ENCOUNTER 2018-10-07 12:20 | Outpatient (CLI) | END 2018-10-07 12:21 | disposition home or self-care (01) | LOC: RHC-LAB 12:20 → FCC-LAB 12:21 | PROVIDERS: ATTEND Family Medicine | DX: E03.9 Hypothyroidism, unspecified (principal) | CPT/HCPCS: 36415; 84439; 84443; 84480 ==

== ENCOUNTER 2018-10-14 13:02 | Outpatient (CLI) ==
[2018-10-14 15:06] VITALS: BMI 40.3
== END 2018-10-14 13:03 | disposition home or self-care (01) ==
LOC: DIETCN 13:02
PROVIDERS: ATTEND Family Medicine
DX: Z68.41 Body mass index [BMI] 40.0-44.9, adult (principal)
CPT/HCPCS: 97802

== ENCOUNTER 2018-10-22 14:50 | Emergency (ER) ==
[2018-10-22 14:56] VITALS: BP 140/84; TEMP 99.5; BMI 41.1
--- NOTE | 2018-10-22 15:55 | ED.PDOC ---
General ED Provider: Dr. DREA CHAU Chief Complaint: Shortness of Air Stated Complaint: Feels short of breath. Tightness around chest feeling as if she can not take a deep breath. Additionally pt feels anxious and states is out of he ativan and has not had it refilled although she is as well on [facility] Time Seen by Physician: 03:25 Mode of Arrival: Walk-In Information Source: Patient Exam Limitations: No limitations Primary Care Provider: SAL HART Nursing and Triage Documentation Reviewed and Agree: Yes Does patient meet sepsis criteria?: No System Inflammatory Response Syndrome: Not Applicable Sepsis Protocol: For patient's 13 years and over: Temp is 96.8 and below OR 101 and greater Pulse >90 BPM Resp >20/minute Acutely Altered Mental Status Are patient's symptoms suggestive of a new infection, such as: -Pneumonia -Skin, Soft Tissue -Endocarditis -UTI -Bone, Joint Infection -Implantable Device -Acute Abdominal Infection -Wound Infection -Meningitis -Blood Stream Catheter Infection -Unknown Respiratory Complaint Exam - Respiratory Complaint/Exam Onset/Duration: 1 day Symptoms Are: Still present Timing: Intermittent Initial Severity: Moderate Current Severity: Mild Location: Chest Character: Reports: Dry cough Aggravating: Reports: None Alleviating: Reports: None Associated Signs and Symptoms: Reports: Dyspnea. Denies: Rapid breathing, Fever , Chills, Chest pain, Pleuritic chest pain, Wheezing, Hemoptysis, Dizziness, Calf pain, Calf swelling, Edema, URI, Nasal congestion, Hoarseness, Sinus discomfort, Vomiting, Sore throat, Weight loss, Decreased oral intake, Increased thirst, Increased appetite, Increased urination Related History: Reports: Similar episode History of Healthcare-Acquired Pneumonia: No Related Surgical History: Reports: None Pulmonary Embolism Risk Factors: None Cardiac Risk Factors: Reports: None Pseudomonas Risk Factors: Reports: None Tuberculosis Risk Factors: Reports: None Status Asthmaticus Risk Factors: Reports: None Home Oxygen Use: No Home Peak Flow: Recent personal best Recent Stress Test: No Recent Echo/LV Function: No Current Antibiotic Use: No Current Asthma Medication Use: No Respiratory Distress: None Inadequate Respiratory Effort: No Dysphagia Present: No Stridor Present: No JVD Present: No Accessory Muscle Use: No Retractions: Not Present Diminished Breath Sounds: No Sinus Tenderness: None Grunting Respirations: No Kussmaul Respirations: No Differential Diagnoses: Chest Wall Pain, Bronchospasm, URI Non-Traumatic Chest Pain Syncope: EKG Performed Review of Systems - Review Of Systems Constitutional: Reports: No symptoms Eyes: Reports: No symptoms Ears, Nose, Mouth, Throat: Reports: No symptoms Respiratory: Reports: No symptoms Cardiac: Reports: No symptoms GI: Reports: No symptoms : Reports: No symptoms Musculoskeletal: Reports: No symptoms Skin: Reports: No symptoms Neurological: Reports: No symptoms Endocrine: Reports: No symptoms Hematologic/Lymphatic: Reports: No symptoms All Other Systems: Reviewed and Negative Past Medical History - Past Medical History Previously Healthy: Yes Endocrine: Reports: None Cardiovascular: Reports: None Respiratory: Reports: None Hematological: Reports: None Gastrointestinal: Reports: GERD, Liver (STENT TO LIVER AND PANCREAS), Pancreatitis Genitourinary: Reports: Kidney stones Neuro/Psych: Reports: Migraine, Anxiety, Depression Musculoskeletal: Reports: None Cancer: Reports: None Last Menstrual Period: none Other Pertinent Past Medical History: right big toenail has grown deformed point upward since trauma 10 years ago - Surgical History General Surgical History: Reports: Hysterectomy, Cholecystectomy, Stent Placement (on pancrease ) - Family History Family History: Reports: Unknown - Social History Smoking Status: Current every day smoker, Heavy tobacco smoker Hx Substance Use: No Alcohol Screening: None Physical Exam - Physical Exam Appearance: Well-appearing, No pain distress, Well-nourished Eyes: ARTEMIO, EOMI, Conjunctiva clear ENT: Ears normal, Nose normal, Oropharynx normal Respiratory: Airway patent, Breath sounds clear, Breath sounds equal, Respirations nonlabored Cardiovascular: RRR, Pulses normal, No rub, No murmur GI/: Soft, Nontender, No masses, Bowel sounds normal, No Organomegaly Musculoskeletal: Normal strength, ROM intact, No edema, No calf tenderness Skin: Warm, Dry, Normal color Neurological: Sensation intact, Motor intact, Reflexes intact, Cranial nerves intact, Alert, Oriented Psychiatric: Affect appropriate, Mood appropriate Critical Care Note - Critical Care Note Total Time (mins): 0 Course - Course Hematology/Chemistry: 10/22/18 16:05 10/22/18 16:05 Orders, Labs, Meds: Lab Review 10/22/18 10/22/18 10/22/18 16:00 16:00 16:05 WBC 6.89 RBC 4.44 Hgb 13.7 Hct 40.9 MCV 92.1 MCH 30.9 MCHC 33.5 RDW Coeff of Raf 13.2 Plt Count 223 Immature Gran % (Auto) 0.3 Neut % (Auto) 51.3 Lymph % (Auto) 34.5 [place] % (Auto) 6.5 Eos % (Auto) 6.8 Baso % (Auto) 0.6 Immature Gran # (Auto) 0.0 Neut # (Auto) 3.5 Lymph # (Auto) 2.4 [place] # (Auto) 0.5 Eos # (Auto) 0.5 Baso # (Auto) 0.0 Sodium Potassium Chloride Carbon Dioxide Anion Gap BUN Creatinine Estimated GFR (MDRD) BUN/Creatinine Ratio Glucose Calcium Total Bilirubin AST ALT Alkaline Phosphatase Total Creatine Kinase Total Protein Albumin Globulin Albumin/Globulin Ratio Urine Color Yellow Urine Clarity Clear Urine pH 5.5 Ur Specific [place] >=1.030 Urine Protein Negative Urine Glucose (UA) Negative Urine Ketones Trace Urine Blood Negative Urine Nitrite Negative Urine Bilirubin Negative Urine Urobilinogen 0.2 Ur Leukocyte Esterase Negative Influ A Molecular Assay Negative by naat Influ B Molecular Assay Negative by naat 10/22/18 16:05 WBC RBC Hgb Hct MCV MCH MCHC RDW Coeff of Raf Plt Count Immature Gran % (Auto) Neut % (Auto) Lymph % (Auto) [place] % (Auto) Eos % (Auto) Baso % (Auto) Immature Gran # (Auto) Neut # (Auto) Lymph # (Auto) [place] # (Auto) Eos # (Auto) Baso # (Auto) Sodium 139.7 Potassium 3.81 Chloride 107.7 H Carbon Dioxide 24.5 Anion Gap 11.31 BUN 14.5 Creatinine 0.67 Estimated GFR (MDRD) 101.00 BUN/Creatinine Ratio 21.64 Glucose 90.3 Calcium 9.58 Total Bilirubin 0.38 AST 23.0 ALT 30.3 Alkaline Phosphatase 54.7 Total Creatine Kinase 67.2 Total Protein 7.11 Albumin 4.68 Globulin 2.43 Albumin/Globulin Ratio 1.92 Urine Color Urine Clarity Urine pH Ur Specific [place] Urine Protein Urine Glucose (UA) Urine Ketones Urine Blood Urine Nitrite Urine Bilirubin Urine Urobilinogen Ur Leukocyte Esterase Influ A Molecular Assay Influ B Molecular Assay Orders Category Date Time Status EKG-(ED ONLY) Stat CARDIO 10/22/18 15:52 Completed CBC W/ AUTO DIFF Stat LAB 10/22/18 16:05 Completed CMP [COMPREHENSIVE METABOLIC PANEL] Stat LAB 10/22/18 16:05 Completed CPK [CREATINE KINASE] Stat LAB 10/22/18 16:05 Completed FLU A & B MOLECULAR [FLU A/B MOLECULAR] Stat LAB 10/22/18 16:00 Completed RAPID STREP SCREEN [MOLECULAR GROUP A STREP] Stat LAB 10/22/18 16:00 Completed UA [URINALYSIS C & S IF INDICATED] Stat LAB 10/22/18 16:00 Completed Hydroxyzine HCl [Vistaril Inj] MEDS 10/22/18 16:47 Discontinued 25 mg IM ONCE STA CHEST, 2 VIEWS PA & LAT Stat RADS 10/22/18 15:52 Completed Medications Discontinued Medications Generic Name Dose Route Start Last Admin Trade Name Freq PRN Reason Stop Dose Admin Hydroxyzine HCl 25 mg 10/22/18 16:47 10/22/18 16:53 Vistaril Inj IM 10/22/18 16:48 25 mg ONCE STA Administration Vital Signs: Temp Pulse Resp BP Pulse Ox 10/22/18 14:53 99.5 F 79 18 140/84 97 Departure - Departure Time of Disposition: 17:10 Disposition: HOME SELF-CARE Discharge Problem: Anxiety, Anterior chest wall pain Condition: Good Pt referred to PMD for follow-up: Yes IPMP verified?: No Allergies/Adverse Reactions: Allergies morphine Adverse Reaction (Verified 10/22/18 14:56) Swelling Home Medications: Ambulatory Orders Citalopram Hydrobromide [Celexa] 40 mg PO BEDTIME 02/26/15 Sumatriptan Succinate [Imitrex] 50 mg PO 1-2XD PRN 11/26/17 Albuterol Sulfate [Proair Hfa] 2 puff IH QID PRN 06/08/18 Musculoskeletal Complaint Exam - Back Pain Complaint/Exam Mechanism of Injury: Reports: No known trauma Onset/Duration: several days Symptoms Are: Still present Timing: Constant Episodes Lasting: Minutes Initial Severity: Moderate Current Severity: Mild Location: Reports: Diffuse (upper and middle thoracic region and ant chest wall costo sternal region s) Character: Reports: Sharp, Dull, Aching Aggravating: Reports: Movements Alleviating: Reports: None Associated Signs and Symptoms: Denies: Swelling, Redness, Bruising, Fever, Weakness, Numbness, Tingling, Abdominal pain, Flank pain, Bladder incontinence, Bowel incontinence, Weight loss, Pain with weight bearing Related History: Denies: Similar episode TAD Risk Factors: Reports: None AAA Risk Factors: Reports: None Cauda Equina Risk Factors: Reports: None Epidural Abcess Risk Factors: Reports: None Related Surgical History: Reports: None Focal Tenderness: Yes Paraspinal Muscle Tenderness: Yes Paraspinal Muscle Spasm: Yes Scoliosis: No Lordosis: No Kyphosis: No SLR Test: Right Negative, Left Negative Hip Motion Testing Pain: Right Negative, Left Negative Focal Weakness: Present: None Focal Sensory Loss: Present: None Gait: Present: Normal (Thoracic muscular spasm, costo chrondritis)
--- NOTE | 2018-10-22 16:27 | DI ---
EXAM: Chest two views HISTORY: Dyspnea COMPARISON: 05/04/2018 TECHNIQUE: Two views of the chest were performed FINDINGS: The lungs are clear. There is no pleural effusion or pneumothorax. The heart is normal i n size. The mediastinal contour is normal. There are no acute abnormalities of the bones. IMPRESSION: No acute cardiopulmonary process.
[2018-10-22] MEDS ORDERED: VISTARIL INJ IM STA (16:47)
== END 2018-10-22 17:38 | disposition home or self-care (01) ==
LOC: ED 14:50
DX: F41.9 Anxiety disorder, unspecified (principal); R06.02 Shortness of breath; R07.89 Other chest pain; Z79.899 Other long term (current) drug therapy; F17.210 Nicotine dependence, cigarettes, uncomplicated
CPT/HCPCS: 36415; 80053; 81001; 82550; 85025; 87502; 87651; 93005; 93010; 96372; 99283

== ENCOUNTER 2023-03-06 10:04 | Observation (INO) ==
--- NOTE | 2023-03-06 10:41 | ED.PDOC ---
General ED Provider: Dr. KAIT TEIXEIRA Chief Complaint: Chest Pain Stated Complaint: Patient is a 37-year-old female who comes to the ER with complaints of shortness of breath and palpitations. She also complains of right lower extremity pain. She states that she is under a lot of stress and has had anxiety. She was recently seen at [facility] and had negative cardiac work-up. Time Seen by Provider: 03/06/23 10:36 Mode of Arrival: Walk-In Information Source: Patient Exam Limitations: No limitations Primary Care Provider: KAREEM TREVIZO Nursing and Triage Documentation Reviewed and Agree: Yes Cardiovascular Complaint Exam Chest Pain Complaint/Exam Onset: Gradual Duration: 1 month Symptoms Are: Still present Timing: Intermittent Initial Severity: Moderate Current Severity: Moderate Location: Reports Midsternal Pain Radiates: Reports None Character: Reports Pressure Alleviating: Reports None Associated Signs and Symptoms: Reports Nausea Review of Systems Review Of Systems Constitutional: Reports No symptoms Eyes: Reports No symptoms Ears, Nose, Mouth, Throat: Reports No symptoms Respiratory: Reports No symptoms Cardiac: Reports Chest pain and Palpitations GI: Reports No symptoms : Reports No symptoms Musculoskeletal: Reports No symptoms Skin: Reports No symptoms Neurological: Reports Anxiety, Depressed and Emotional problems All Other Systems: Reviewed and Negative [facility] Medical History Anxiety F41.9 - Anxiety disorder, unspecified (ICD-10) Calculus of kidney N20.0 - Calculus of kidney (ICD-10) Cat-scratch disease (~2016) A28.1 - Cat-scratch disease (ICD-10) Chronic pancreatitis K86.1 - Other chronic pancreatitis (ICD-10) Depression F32.9 - Major depressive disorder, single episode, unspecified (ICD-10) Diverticulitis K57.92 - Diverticulitis of intestine, part unspecified, without perforation or abscess without bleeding (ICD-10) Pneumonia J18.9 - Pneumonia, unspecified organism (ICD-10) Family History FATHER Cardiac disease Hypertension Mother Hypertension BROTHER Cardiac disease Hypertension Social History Smoking and tobacco status: Current every day smoker Tobacco: How many years used: 19 Quit status: not considering quitting Alcohol intake: never Counseling given: No Counseling provided: none Substance use type: does not use Counseling given: No Counseling provided: none Karla/orthodox: ORTHODOX Special karla needs: No Agree to transfusion: Yes Adopted: No Foster care: No Household members: family and children Housing: house Marital status: D Lives independently: No Daycare: no daycare Number of children: 3 Number of grandchildren: 0 Highest education level completed: Associate degree: occupational, technical, vocational program Financial difficulty paying for basics: hard service: No retirement: No Current occupational status: unemployed Current occupational exposures/hazards: No Pets and animals: Yes (dog) History of recent travel: No Sexually active: No Do you think of yourself as: straight/heterosexual Current gender identity: female Seatbelt use: always Drives intoxicated or rides with intoxicated 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 Surgical History History of section Z98.891 - History of uterine scar from previous surgery (ICD-10) History of dental surgery Z92.89 - Personal history of other medical treatment (ICD-10) History of tubal ligation Z98.51 - Tubal ligation status (ICD-10) lymph nodes removed left arm pit pancreatic stent placement Status post cholecystectomy Z90.49 - Acquired absence of other specified parts of digestive tract (ICD- 10) Female Reproductive History Menstrual Hx Hysterectomy: Yes Hx Tubal Ligation: No Physical Exam Physical Exam Appearance: Reports Ill-appearing and Obese Ill-appearing: Mild Pain Distress: Moderate Eyes: Reports ARTEMIO, EOMI and Conjunctiva clear ENT: Reports Ears normal, Nose normal and Oropharynx normal Neck: Supple Respiratory: Reports Airway patent, Breath sounds clear, Breath sounds equal and Respirations nonlabored Cardiovascular: Reports RRR, Pulses normal and No rub GI/: Reports Nontender (epigastric area ) Musculoskeletal: Reports Normal strength, ROM intact and No edema Skin: Reports Warm, Dry and Normal color Neurological: Reports Motor intact, Alert and Oriented Psychiatric: Reports Anxious Interpretation EKG Interpretation EKG Interpretation By: ED Physician Time of EKG #1: 10:21 Rate: Normal Rhythm: Sinus Ectopy: None [place]: NL ST Segment: Normal Interpretation: Q waves in V1 and V2 consistent with previous septal infarct age undetermin EKG Comparison: Other (From the 1 done at [facility] on February 28, 2023) Radiology Interpretation Radiology Interpretation By: ED Physician Radiology Results: Negative Exam Interpreted: CXR Re-Evaluation Re-Evaluation Time of Re-Evaluation: 13:33 Status: Improved Vital Signs Stable: Yes Pain Level: Pain was significantly improved in the right anterior calf area. Appearance: NAD Physician Notification Case Discussed Physician Notified: Notified nurse petitioner Pawel Villeda who has accepted p Time of Notification: 11:54 (Accepted as observation after second troponin) Critical Care Note Critical Care Note Total Critical Care Time (mins): 0 Comments: Positive second troponin negative. Called CLASSER Pawel Villeda who confirmed that she is okay with admission to the hospital. Course Course 03/06/23 10:52 03/06/23 10:52 Orders, Labs, Meds: Lab Review 03/06/23 03/06/23 10:52 12:14 WBC 7.39 RBC 4.44 Hgb 13.2 Hct 41.3 MCV 93.0 MCH 29.7 MCHC 32.0 RDW Coeff of Raf 13.0 Plt Count 239 Immature Gran % (Auto) 0.4 Neut % (Auto) 54.6 Lymph % (Auto) 30.7 [place] % (Auto) 6.9 Eos % (Auto) 6.5 Baso % (Auto) 0.9 Neut # (Auto) 4.0 Lymph # (Auto) 2.3 [place] # (Auto) 0.5 Eos # (Auto) 0.5 Baso # (Auto) 0.1 Immature Gran # (Auto) 0.0 Sodium 137.6 Potassium 4.09 Chloride 105.8 Carbon Dioxide 24.1 Anion Gap 11.79 BUN 13.5 Creatinine 0.74 Estimated GFR (MDRD) 87.00 BUN/Creatinine Ratio 18.24 Glucose 100.0 Calcium 9.43 Total Bilirubin 0.29 AST 26.0 ALT 38.8 H Alkaline Phosphatase 52.9 Total Creatine Kinase 189.3 H CK-MB (CK-2) 2.650 H CK-MB (CK-2) % 1.3900 Troponin I < 0.012 < 0.012 Total Protein 7.45 Albumin 4.37 Globulin 3.08 Albumin/Globulin Ratio 1.41 D-Dimer 267.49 Orders Category Date Time Status ADMIT OBSERVATION [PLACE PATIENT OBSERVATION] .TO ADMISSION 03/06/23 12:58 Active MEDSURG (MONITORED BED) EKG-(ED ONLY) Stat CARDIO 03/06/23 10:41 Completed TELEMETRY MONITORING TELE CARE 03/06/23 12:58 Active Call for old record [ED MEDICAL RECORDS REQUEST] .ONCE EMERGENCY 03/06/23 10:41 Active ED TEAMCENTER SOLUTION ARCHITECT APPLIED .ONCE EMERGENCY 03/06/23 10:41 Active ED IV/MEDIPORT/POWERPORT .ONCE EMERGENCY 03/06/23 10:41 Active CBC W/ AUTO DIFF Stat LAB 03/06/23 10:52 Completed COMPREHENSIVE METABOLIC PANEL Stat LAB 03/06/23 10:52 Completed CREATINE KINASE Stat LAB 03/06/23 10:52 Completed D-DIMER Stat LAB 03/06/23 10:52 Completed TROPONIN I Stat LAB 03/06/23 10:52 Completed TROPONIN I Stat LAB 03/06/23 12:14 Completed 0.9 % Sodium Chloride [Saline Flush] Meds 03/06/23 10:41 Active 1 syr IVF PRN PRN Hydromorphone HCl [Dilaudid 1 mg/ml Syringe] Meds 03/06/23 11:01 Discontinued 1 mg IVP ONCE STA Ondansetron HCl/Pf [Zofran 4 mg/2 ml] Meds 03/06/23 11:01 Discontinued 4 mg IVP ONCE STA CHEST, 1V AP ONLY Stat RADS 03/06/23 10:41 Completed Medications Generic Name Dose Route Start Last Admin Trade Name Freq PRN Reason Stop Dose Admin Acetaminophen 650 mg 03/06/23 14:23 Acetaminophen 325 Mg Tablet PO Q4H PRN Mild Pain Amoxicillin/Clavulanate Potassium 1 tab 03/06/23 21:00 03/06/23 20:05 Amoxicillin/Potassium Clav 875/125 Mg Tablet PO 03/10/23 22:00 1 tab BID MEEK Administration Escitalopram Oxalate 20 mg 03/06/23 16:30 03/06/23 16:47 Escitalopram Oxalate 10 Mg Tablet PO 20 mg DAILY MEEK Administration Gabapentin 300 mg 03/07/23 09:00 Gabapentin 300 Mg Capsule PO DAILY MEEK Gabapentin 900 mg 03/06/23 21:00 03/06/23 20:19 Gabapentin 300 Mg Capsule PO 900 mg BEDTIME MEEK Administration Hydroxyzine HCl 25 mg 03/06/23 21:00 03/06/23 20:06 Hydroxyzine Hcl 25 Mg Tablet PO 25 mg BEDTIME MEEK Administration Levothyroxine Sodium 88 mcg 03/06/23 16:00 03/06/23 16:51 Levothyroxine Sodium 88 Mcg Tablet PO Not Given QDAC MEEK Pramipexole Dihydrochloride 0.25 mg 03/06/23 21:00 03/06/23 20:05 Pramipexole Di-Hcl 0.25 Mg Tablet PO 0.25 mg TID MEEK Administration Sodium Chloride 1 syr 03/06/23 10:41 0.9% Sodium Chloride 10 Ml Disp.Syrin IVF PRN PRN To flush IV Topiramate 25 mg 03/07/23 09:00 Topiramate 50 Mg Tablet PO DAILY MEEK Trazodone HCl 50 mg 03/06/23 21:00 03/06/23 20:06 Trazodone Hcl 50 Mg Tablet PO 50 mg BEDTIME MEEK Administration Discontinued Medications Generic Name Dose Route Start Last Admin Trade Name Freq PRN Reason Stop Dose Admin Aspirin 324 mg 03/06/23 13:32 03/06/23 13:41 Aspirin 81 Mg Tab.Chew PO 03/06/23 13:33 324 mg ONCE STA Administration Escitalopram Oxalate 10 mg 03/06/23 16:00 03/06/23 16:30 Escitalopram Oxalate 10 Mg Tablet PO Not Given DAILY MEEK Hydromorphone HCl 1 mg 03/06/23 11:01 03/06/23 11:27 Hydromorphone Hcl 1 Mg/Ml Syringe IVP 03/06/23 11:02 1 mg ONCE STA Administration Ketorolac Tromethamine 15 mg 03/06/23 15:35 03/06/23 15:59 Ketorolac Tromethamine 15 Mg/Ml Vial IVP 03/06/23 15:36 15 mg ONCE ONE Administration Ondansetron HCl 4 mg 03/06/23 11:01 03/06/23 11:26 Ondansetron Hcl/Pf 4 Mg/2 Ml Sdv IVP 03/06/23 11:02 4 mg ONCE STA Administration Vital Signs: Temp Pulse Resp BP Pulse Ox 03/06/23 10:08 98.0 F 80 20 137/93 H 99 JOVANNA Risk Score Age >/= 65: No >/= 3 CAD Risk Factors: Yes Known CAD (Stenosis >/= 50%): No JOVANNA Total Score: 1 JOVANNA Risk Score: Risk Score Odds of by 30D 0 0.1 (0.1-0.2) 1 0.3 (0.2-0.3) 2 0.4 (0.3-0.5) 3 0.7 (0.6-0.9) 4 1.2 (1.0-1.5) 5 2.2 (1.9-2.6) 6 3.0 (2.5-3.6) 7 4.8 (3.8-6.1) Discharge Plan Discharge Patient Disposition: PLACED OBSERVATION Discharge Problem: Chest pain, rule out acute myocardial infarction, Anxiety, Pain of right calf Did you review [place] CREW SUPERVISOR for ALL controlled substances?: Not Applicable ED Provider: KAIT TEIXEIRA Condition: Stable Physician Progress Note: []
[2023-03-06 10:56] LABS: BASOPHILS # (AUTO) 0.1 K/uL (0-0.2); BASOPHILS % (AUTO) 0.9 % (0.0-3.0); EOSINOPHILS # (AUTO) 0.5 K/ul (0.0-0.7); EOSINOPHILS % (AUTO) 6.5 % (0.0-7.0); HEMATOCRIT 41.3 % (37.0-47.0); HEMOGLOBIN 13.2 g/dl (12.0-16.0); IMMATURE GRANULOCYTE % (AUTO) 0.4 % (0.0-5.0); LYMPHOCYTES # (AUTO) 2.3 K/uL (0.60-3.4); LYMPHOCYTES % (AUTO) 30.7 (10.0-50.0); MEAN CORPUSCULAR HEMOGLOBIN 29.7 pg (27.0-31.0); MONOCYTES # (AUTO) 0.5 K/uL (0.4-2.0); MONOCYTES % (AUTO) 6.9 (0-10); NEUTROPHILS % (AUTO) 54.6 % (42.2-75.2); PLATELET COUNT 239 10^3/uL (140-440); RED BLOOD COUNT 4.44 10^6/ul (4.20-5.40); WHITE BLOOD COUNT 7.39 K/ul (4.6-10.2)
[2023-03-06] MEDS ORDERED: ZOFRAN 4 MG/2 ML IVP STA (11:01)
[2023-03-06] MEDS ORDERED: DILAUDID 1 MG/ML SYRINGE IVP STA (11:01)
--- NOTE | 2023-03-06 11:05 | DI ---
EXAM: CHEST RADIOGRAPH TECHNIQUE: Single frontal chest radiograph. HISTORY: Chest pain COMPARISON: 03/26/2019 FINDINGS: The lungs are clear. The heart size is normal. The osseous structures are unremarkable. IMPRESSION: 1. No acute disease.
[2023-03-06 11:10] LABS: ALANINE AMINOTRANSFERASE 38.8 U/L (0-35); ALBUMIN 4.37 g/dL (3.5-5.0); ALKALINE PHOSPHATASE 52.9 U/L (38-126); BILIRUBIN,TOTAL 0.29 mg/dL (0.2-1.3); BLOOD UREA NITROGEN 13.5 mg/dL (7-17); CALCIUM 9.43 mg/dL (8.4-10.2); CARBON DIOXIDE 24.1 mmol/L (22-30.0); CHLORIDE 105.8 mmol/L (98-107); CREATINE KINASE 189.3 U/L (30-135); CREATININE 0.74 mg/dL (0.60-1.30); POTASSIUM 4.09 mmol/L (3.5-5.1); SODIUM 137.6 mmol/L (134.5-145); TOTAL PROTEIN 7.45 g/dL (6.3-8.2)
[2023-03-06 11:22] LABS: TROPONIN I < 0.012 ng/ml (0.0000-0.120)
[2023-03-06] MEDS ORDERED: ASPIRIN CHEWABLE PO STA (13:32)
[2023-03-06 14:18] VITALS: BMI 47.2
[2023-03-06] MEDS ORDERED: TYLENOL PO PRN (14:23)
[2023-03-06] MEDS ORDERED: TORADOL IVP ONE (15:35)
--- NOTE | 2023-03-06 15:37 | PCM ---
Date of Service Date Seen by Provider: 03/06/23 Time Seen by Provider: 15:00 Admit Day/Time Admission Date: 03/06/23 Reason for Admission Chief Complaint: CHEST PAIN Hospital Provider Hospital Provider: MADHU SNYDER, [facility] [place] Primary Care Physician Primary Care Physician: KAREEM TREVIZO History of Present Illness History of Present Illness: 37 yo female presented to the ER with complaints of chest pain x 1 month. Patient reports she has had intermittent chest pressure x1 month. Was seen at [facility] ER on 03/01 and diagnosed with sinusitis. Troponin and EKG were negative and told to discuss with PCP outpatient chest pain work-up. Sinusitis was treated with a z-pack for CAP and augmentin. Does not report any sinus congestion at this time. Chest pain is described as pressure. No aggravating or alleviating factors. Denies any cardiac history. Does report family history of sibling at 30 from [place]. States she feels she has gained an excessive amount of weight over the last couple months and doesn't know why. Also has complaints of RLE pain located in the lateral calve. States it has been there over the last 2 days and describes it as a sharp stabbing. Family hx of DVT but no personal Case Discussed With Case Discussed With: Patient's case was discussed with the ER Physicians, Dr. Wei. [facility] Medical History Anxiety F41.9 - Anxiety disorder, unspecified (ICD-10) Calculus of kidney N20.0 - Calculus of kidney (ICD-10) Cat-scratch disease (~2015) A28.1 - Cat-scratch disease (ICD-10) Chronic pancreatitis K86.1 - Other chronic pancreatitis (ICD-10) Depression F32.9 - Major depressive disorder, single episode, unspecified (ICD-10) Diverticulitis K57.92 - Diverticulitis of intestine, part unspecified, without perforation or abscess without bleeding (ICD-10) Pneumonia J18.9 - Pneumonia, unspecified organism (ICD-10) Surgical History History of section Z98.891 - History of uterine scar from previous surgery (ICD-10) History of dental surgery Z92.89 - Personal history of other medical treatment (ICD-10) History of tubal ligation Z98.51 - Tubal ligation status (ICD-10) lymph nodes removed left arm pit pancreatic stent placement Status post cholecystectomy Z90.49 - Acquired absence of other specified parts of digestive tract (ICD- 10) Family History FATHER Cardiac disease Hypertension Mother Hypertension BROTHER Cardiac disease Hypertension Social History Smoking and tobacco status: Current every day smoker Tobacco: How many years used: 19 Quit status: not considering quitting Alcohol intake: never Counseling given: No Counseling provided: none Substance use type: does not use Counseling given: No Counseling provided: none Karla/mandaen: [facility] Special karla needs: No Agree to transfusion: Yes Adopted: No Foster care: No Household members: family and children Housing: house Marital status: D Lives independently: No Daycare: no daycare Number of children: 3 Number of grandchildren: 0 Highest education level completed: Associate degree: occupational, technical, vocational program Financial difficulty paying for basics: hard service: No [facility]: No Current occupational status: unemployed Current occupational exposures/hazards: No Pets and animals: Yes (dog) History of recent travel: No Sexually active: No Do you think of yourself as: straight/heterosexual Current gender identity: female Seatbelt use: always Drives intoxicated or rides with intoxicated lead driver: No Allergies Allergies Allergy/AdvReac Type Severity Reaction Status Date / Time oxycodone [From Percocet] AdvReac Severe other Verified 03/06/23 11:39 morphine AdvReac Swelling Verified 03/06/23 11:39 Current Medications Home Medications albuterol sulfate 90 mcg/actuation aerosol inhaler See Rx Instructions .Route .COMPLEX #6.7 ea 08/30/22 [Rx Confirmed 03/06/23 Last Taken Unknown] escitalopram oxalate 20 mg tablet See Rx Instructions .Route .COMPLEX #90 tabs 09/05/22 [Rx Confirmed 03/06/23 Last Taken 03/05/23] levothyroxine 88 mcg tablet See Rx Instructions .Route .COMPLEX #30 tabs 10/16/22 [Rx Confirmed 03/06/23 Last Taken 03/05/23] amoxicillin 875 mg-potassium clavulanate 125 mg tablet 1 tab PO BID 03/06/23 [History Confirmed 03/06/23 Last Taken 03/05/23] gabapentin 300 mg capsule 300 mg PO DAILY 03/06/23 [History Confirmed 03/06/23 L ast Taken 03/05/23] hydroxyzine HCl 25 mg tablet 25 mg PO BEDTIME 03/06/23 [History Confirmed 03/06/23 Last Taken 03/05/23] pramipexole 0.25 mg tablet 0.25 mg PO TID 03/06/23 [History Confirmed 03/06/23 Last Taken 03/05/23] topiramate 25 mg tablet 25 mg PO DAILY 03/06/23 [History Confirmed 03/06/23 Last Taken 03/05/23] trazodone 50 mg tablet 50 mg PO BEDTIME 03/06/23 [History Confirmed 03/06/[address] Taken 03/05/23] Home Acetaminophen (Acetaminophen 325 Mg Tablet) 650 mg PO Q4H PRN PRN Reason: Mild Pain Sodium Chloride (0.9% Sodium Chloride 10 Ml Disp.Syrin) 1 syr IVF PRN PRN PRN Reason: To flush IV Discontinued Medications Aspirin (Aspirin 81 Mg Tab.Chew) 324 mg PO ONCE STA Stop: 03/06/23 13:33 Last Admin: 03/06/23 13:41 Dose: 324 mg Hydromorphone HCl (Hydromorphone Hcl 1 Mg/Ml Syringe) 1 mg IVP ONCE STA Stop: 03/06/23 11:02 Last Admin: 03/06/23 11:27 Dose: 1 mg Ketorolac Tromethamine (Ketorolac Tromethamine 15 Mg/Ml Vial) 15 mg IVP ONCE ONE Stop: 03/06/23 15:36 Ondansetron HCl (Ondansetron Hcl/Pf 4 Mg/2 Ml Sdv) 4 mg IVP ONCE STA Stop: 03/06/23 11:02 Last Admin: 03/06/23 11:26 Dose: 4 mg Review of Systems Constitutional: Reports No symptoms Head: Reports Normocephalic Eyes: Reports No symptoms Ears: Reports No symptoms Nose: Reports No symptoms Mouth: Reports No symptoms Throat: Reports No symptoms Cardiovascular: Reports Chest Pressure Respiratory: Reports No symptoms Gastrointestinal: Reports No symptoms Genitourinary: Reports No Symptoms Musculoskeletal: Reports Other (R calf pain) Endocrine: Reports No symptoms Hematology: Reports No symptoms Immunology: Reports No symptoms Neurological: Reports No symptoms Psychiatric: Reports No symptoms Physical examination Most Recent Vital Signs: Most Recent Vital Signs Temperature 98.1 F 03/06/23 13:49 Temperature Source Oral 03/06/23 13:49 Temperature Source Infrared 03/06/23 10:08 Pulse Rate 62 03/06/23 13:49 Respiratory Rate 18 03/06/23 13:49 Blood Pressure 137/93 H 03/06/23 10:08 Blood Pressure Left Arm 131/86 03/06/23 13:49 Blood Pressure Position Sitting 03/06/23 13:49 O2 Sat by Pulse Oximetry 100 03/06/23 13:49 Oxygen Delivery Method Room Air 03/06/23 13:49 Height 5 ft 6 in 03/06/23 13:49 Weight 293 lb 03/06/23 13:49 Telemetry Type Remote Telemetry 03/06/23 13:49 Telemetry Monitoring Started 03/06/23 13:49 Telemetry Heart Rate 60 03/06/23 13:49 EKG [place] Interval 0.20 03/06/23 13:49 EKG QRS Interval 0.07 03/06/23 13:49 Telemetry Strip Reading NSR 03/06/23 13:49 Appearance: Positive No Apparent Distress, Alert and Oriented x3 and Obese Skin: Positive Warm, Good Turgor and Good Color HEENT: Positive Normocephalic and PERRLA Neck: Positive Supple and Midline Trachea Chest/Lungs: Positive Symmetrical With Equal Breath Sounds, Clear to Auscul tation Bilaterally and Good Air Movement all 4 Lung [place] Heart: Positive RRR, Pulses Normal and No S3 Auscultated GI/: Positive Soft, Nontender and Bowel Sounds Normal Extremities: Positive Intact Peripheral Pulses, Stable Joints Without Laxity and Good ROM in All Joints Neurological: Positive Sensation Intact, Motor intact, Reflexes Intact, Alert, Oriented and Muscle Strength 5/5 in Upper and Lower Extremities Bilaterally Psychiatric: Positive Oriented x4, Appropriate Mood, Appropriate Affect, Intact Memory, Good Short-Term Recall, Good Long-Term Recall, Normal Judgement and Normal Insight Labs This Visit Labs This Visit: Labs This Visit 03/06/23 03/06/23 10:52 12:14 WBC 7.39 RBC 4.44 Hgb 13.2 Hct 41.3 MCV 93.0 MCH 29.7 MCHC 32.0 RDW Coeff of Raf 13.0 Plt Count 239 Immature Gran % (Auto) 0.4 Neut % (Auto) 54.6 Lymph % (Auto) 30.7 [place] % (Auto) 6.9 Eos % (Auto) 6.5 Baso % (Auto) 0.9 Neut # (Auto) 4.0 Lymph # (Auto) 2.3 [place] # (Auto) 0.5 Eos # (Auto) 0.5 Baso # (Auto) 0.1 Immature Gran # (Auto) 0.0 Sodium 137.6 Potassium 4.09 Chloride 105.8 Carbon Dioxide 24.1 Anion Gap 11.79 BUN 13.5 Creatinine 0.74 Estimated GFR (MDRD) 87.00 BUN/Creatinine Ratio 18.24 Glucose 100.0 Calcium 9.43 Total Bilirubin 0.29 AST 26.0 ALT 38.8 H Alkaline Phosphatase 52.9 Total Creatine Kinase 189.3 H CK-MB (CK-2) 2.650 H CK-MB (CK-2) % 1.3900 Troponin I < 0.012 < 0.012 Total Protein 7.45 Albumin 4.37 Globulin 3.08 Albumin/Globulin Ratio 1.41 D-Dimer 267.49 Imaging Imaging: EXAM: CHEST RADIOGRAPH TECHNIQUE: Single frontal chest radiograph. HISTORY: Chest pain COMPARISON: 03/26/2019 FINDINGS: The lungs are clear. The heart size is normal. The osseous structures are unremarkable. IMPRESSION: 1. No acute disease. EKG Interpretation EKG Interpretation: No acute changes per Dr. Wei Review Statement Review Statement: I have independently reviewed and interpreted the labs/EKGs/imaging that were ordered by the ER provider. I have reviewed all outside records that are available currently in our EMR including imaging/notes/labs from previous visits. Plan Plan: 1. Chest pain - HEART score 2-3; serial troponins and EKGs, telemetry, checking lipid panel, tsh, and hemoglobin A1c, outpatient stress and echo 2. RLE pain - d-dimer negative, patient concern for DVT, checking venous study to r/o dvt 3. Sinusitis - continue augmentin 4. Hypothyroidism - chronic, checking TSH, continue home medications 5. Restless Leg Syndrome - chronic, continue home medications 6. Anxiety/Depression - continue home medications DVT Prophylaxis: Up ad jose alejandro Time Spent: Greater than 80 minutes spent with patient, 50% of the time spent with this patient was devoted to counseling and coordination of care. [facility] Plannin minutes spent discussing advance care planning. Disposition: Admit to: Med/surg Observation Full Code Discussed Plan of Care with Dr. Will Power. Medications Medication Orders: Medications Ordered Category Date Time Status 0.9 % Sodium Chloride [Saline Flush] Meds 03/06/23 10:41 Active 1 syr IVF PRN PRN Acetaminophen [Tylenol] Meds 03/06/23 14:23 Active 650 mg PO Q4H PRN Ketorolac Tromethamine [Toradol] Meds 03/06/23 15:35 Once 15 mg IVP ONCE ONE
[2023-03-06] MEDS ORDERED: LEXAPRO PO SCH (16:00)
--- NOTE | 2023-03-06 16:07 | US ---
EXAM: ULTRASOUND VENOUS DOPPLER RIGHT LOWER EXTERMITY HISTORY: Right lower extremity pain COMPARISON: None TECHNIQUE: Venous duplex ultrasound of the right lower extremity was performed. Greyscale, color do ppler, spectral doppler imaging performed. FINDINGS: There is normal color flow and compression of the right common femoral, greater saphenous, profunda femoral, femoral, popliteal, peroneal, posterior tibial, and anterior tibial veins without evidence of intraluminal thrombus. Nonspecific lymph node in the right inguinal region with normal f atty hilum and measuring 0.7 cm short axis IMPRESSION: 1. No evidence for right lower extremity deep venous thrombosis at the visualized levels. 2. Nonspecific lymph node right inguinal region measuring less than 1 cm short axis.
[2023-03-06] MEDS: LEXAPRO PO SCH (16:47)
[2023-03-06] MEDS: SYNTHROID PO SCH (16:51)
[2023-03-06] MEDS: MIRAPEX PO SCH (20:05)
[2023-03-06] MEDS: AUGMENTIN 875-125 MG TAB PO SCH (20:05)
[2023-03-06 20:29] VITALS: PULSE 70; RESP 18
[2023-03-06] MEDS ORDERED: NEURONTIN PO SCH (21:00)
[2023-03-06] MEDS ORDERED: ATARAX PO SCH (21:00)
[2023-03-06] MEDS ORDERED: DESYREL PO SCH (21:00)
[2023-03-07 04:59] VITALS: BP 108/65; TEMP 97.6
[2023-03-07] MEDS: SYNTHROID PO SCH (05:34)
[2023-03-07 05:35] LABS: BASOPHILS # (AUTO) 0.1 K/uL (0-0.2); BASOPHILS % (AUTO) 0.8 % (0.0-3.0); EOSINOPHILS # (AUTO) 0.5 K/ul (0.0-0.7); EOSINOPHILS % (AUTO) 6.3 % (0.0-7.0); HEMATOCRIT 42.1 % (37.0-47.0); HEMOGLOBIN 13.4 g/dl (12.0-16.0); IMMATURE GRANULOCYTE % (AUTO) 0.4 % (0.0-5.0); LYMPHOCYTES # (AUTO) 2.2 K/uL (0.60-3.4); LYMPHOCYTES % (AUTO) 28.6 (10.0-50.0); MEAN CORPUSCULAR HEMOGLOBIN 29.5 pg (27.0-31.0); MEAN CORPUSCULAR HGB CONC 31.8 (31.8-35.4); MEAN CORPUSCULAR VOLUME 92.7 fl (81.0-99.0); MONOCYTES # (AUTO) 0.3 K/uL (0.4-2.0); MONOCYTES % (AUTO) 4.4 (0-10); NEUTROPHILS # (AUTO) 4.6 K/ul (2.0-6.9); NEUTROPHILS % (AUTO) 59.5 % (42.2-75.2); PLATELET COUNT 231 10^3/uL (140-440); RDW COEFFICIENT OF VARIATION 12.9 % (11.6-14.8); RED BLOOD COUNT 4.54 10^6/ul (4.20-5.40); WHITE BLOOD COUNT 7.67 K/ul (4.6-10.2)
[2023-03-07 05:46] LABS: ALANINE AMINOTRANSFERASE 35.3 U/L (0-35); ALBUMIN 3.85 g/dL (3.5-5.0); ALKALINE PHOSPHATASE 51.2 U/L (38-126); ASPARTATE AMINO TRANSFERASE 25.7 U/L (14-36); BILIRUBIN,TOTAL 0.41 mg/dL (0.2-1.3); BLOOD UREA NITROGEN 12.8 mg/dL (7-17); CALCIUM 8.73 mg/dL (8.4-10.2); CARBON DIOXIDE 26.1 mmol/L (22-30.0); CHLORIDE 105.2 mmol/L (98-107); CREATININE 0.82 mg/dL (0.60-1.30); LDL CHOLESTEROL,CALCULATED 130 mmol/L; POTASSIUM 3.98 mmol/L (3.5-5.1); SODIUM 136.9 mmol/L (134.5-145); TOTAL PROTEIN 6.65 g/dL (6.3-8.2); TRIGLYCERIDES 95.8 mg/dL (0-150); VLDL CHOLESTEROL 19 mg/dL (2-30)
[2023-03-07 05:59] LABS: TROPONIN I < 0.012 ng/ml (0.0000-0.120)
[2023-03-07] MEDS: AUGMENTIN 875-125 MG TAB PO SCH (08:27)
[2023-03-07] MEDS: MIRAPEX PO SCH (08:27)
[2023-03-07] MEDS: LEXAPRO PO SCH (08:27)
[2023-03-07] MEDS ORDERED: NEURONTIN PO SCH (09:00)
[2023-03-07] MEDS ORDERED: TOPAMAX PO SCH (09:00)
[2023-03-07] MEDS ORDERED: SYMBICORT 160-4.5 MCG INHALER IH SCH (09:00)
--- NOTE | 2023-03-07 11:47 | DCSUM ---
Admission Date Admission Date: 03/06/23 Discharge Date Discharge Date: 03/07/23 Admission Diagnosis Admission Diagnosis: 1. Chest pain 2. RLE pain 3. Sinusitis 4. Hypothyroidism 5. Restless Leg Syndrome 6. Anxiety/Depression Discharge Diagnosis Discharge Diagnosis: 1. Chest pain - Improving 2. RLE pain - Stable 3. Sinusitis - Improving 4. Hypothyroidism - Stable 5. Restless Leg Syndrome - Stable 6. Anxiety/Depression - Stable Hospital Provider Hospital Provider: MADHU SNYDER, [facility] [place] Primary Care Physician Primary Care Physician: KAREEM TREVIZO Summary of History and Physical Summary of History and Physical: 37 yo female presented to the ER with complaints of chest pain x 1 month. Patient reports she has had intermittent chest pressure x1 month. Was seen at [facility] ER on 03/01 and diagnosed with sinusitis. Troponin and EKG were negative and told to discuss with PCP outpatient chest pain work-up. Sinusitis was treated with a z-pack for CAP and augmentin. Does not report any sinus congestion at this time. Chest pain is described as pressure. No aggravating or alleviating factors. Denies any cardiac history. Does report family history of sibling at 30 from [place]. States she feels she has gained an excessive amount of weight over the last couple months and doesn't know why. Also has complaints of RLE pain located in the lateral calve. States it has been there over the last 2 days and describes it as a sharp stabbing. Family hx of DVT but no personal Hospital Course Subjective: Patient denies chest pain this morning. Requesting discharge. Had complaints of RLE pain on admission. Ultrasound completed to r/o DVT and negative. Troponins trended and negative. EKG normal. Lipid panel normal. Hemoglobin A1c normal. Reported TSH was recently checked and medications adjusted by PCP. Outpatient echo and stress test scheduled. Start on aspirin 81 mg daily Follow-up with Dr. Ayesha Power as scheuled. Appearance: Pleasant, No Apparent Distress, Alert and Well-appearing HEENT: MMM CVS: No Murmur and No Rubs Abdomen: Soft, Non-Tender and No Distention Respiratory: No Dyspnea Extremities: No Edema Vital Signs: Most Recent Vital Signs Temperature 97.6 F 03/07/23 04:57 Temperature Source Oral 03/07/23 04:57 Temperature Source Infrared 03/06/23 10:08 Pulse Rate 70 03/07/23 04:57 Respiratory Rate 18 03/07/23 04:57 Blood Pressure 108/65 03/07/23 04:57 Blood Pressure Mean 79 03/07/23 04:57 Blood Pressure Left Arm 131/86 03/06/23 13:49 Blood Pressure Location Right Arm 03/07/23 04:57 Blood Pressure Position Supine 03/07/23 04:57 O2 Sat by Pulse Oximetry 97 03/07/23 04:57 Oxygen Delivery Method Room Air 03/07/23 08:00 Height 5 ft 6 in 03/07/23 08:32 Weight 293 lb 03/07/23 08:32 Telemetry Type Remote Telemetry 03/07/23 07:00 Telemetry Monitoring Continues 03/07/23 07:00 Telemetry Heart Rate 100 03/07/23 07:00 EKG MA Interval 0.16 03/07/23 07:00 EKG QRS Interval 0.06 03/07/23 07:00 Telemetry Strip Reading sr 03/07/23 07:00 Lab Results Last 24 Hours: 03/07/23 03/06/23 03/06/23 04:53 20:30 16:45 WBC 7.67 RBC 4.54 Hgb 13.4 Hct 42.1 MCV 92.7 MCH 29.5 MCHC 31.8 RDW Coeff of Raf 12.9 Plt Count 231 Immature Gran % (Auto) 0.4 Neut % (Auto) 59.5 Lymph % (Auto) 28.6 [place] % (Auto) 4.4 Eos % (Auto) 6.3 Baso % (Auto) 0.8 Neut # (Auto) 4.6 Lymph # (Auto) 2.2 [place] # (Auto) 0.3 L Eos # (Auto) 0.5 Baso # (Auto) 0.1 Immature Gran # (Auto) 0.0 Sodium 136.9 Potassium 3.98 Chloride 105.2 Carbon Dioxide 26.1 Anion Gap 9.58 BUN 12.8 Creatinine 0.82 Estimated GFR (MDRD) 78.00 BUN/Creatinine Ratio 15.60 Glucose 113.0 H Hemoglobin A1c 5.28 Calcium 8.73 Total Bilirubin 0.41 AST 25.7 ALT 35.3 H Alkaline Phosphatase 51.2 Troponin I < 0.012 < 0.012 < 0.012 Total Protein 6.65 Albumin 3.85 Globulin 2.80 Albumin/Globulin Ratio 1.37 Triglycerides 95.8 Cholesterol 199.0 LDL Cholesterol, Calc 130 VLDL Cholesterol 19 HDL Cholesterol 50.0 Cholesterol/HDL Ratio 4.0 L TSH 14.200 H D-Dimer 03/06/23 03/06/23 12:14 10:52 WBC RBC Hgb Hct MCV MCH MCHC RDW Coeff of Raf Plt Count Immature Gran % (Auto) Neut % (Auto) Lymph % (Auto) [place] % (Auto) Eos % (Auto) Baso % (Auto) Neut # (Auto) Lymph # (Auto) [place] # (Auto) Eos # (Auto) Baso # (Auto) Immature Gran # (Auto) Sodium Potassium Chloride Carbon Dioxide Anion Gap BUN Creatinine Estimated GFR (MDRD) BUN/Creatinine Ratio Glucose Hemoglobin A1c Calcium Total Bilirubin AST ALT Alkaline Phosphatase Troponin I < 0.012 Total Protein Albumin Globulin Albumin/Globulin Ratio Triglycerides Cholesterol LDL Cholesterol, Calc VLDL Cholesterol HDL Cholesterol Cholesterol/HDL Ratio TSH D-Dimer 267.49 Discharge Instructions Discharge Planning: Discharge Planning > 40 minutes If patient is discharged with left ventricular systolic dysfunction: NA Discharged with a beta prasanth? [] If no, why not? [] NA Discharged with an saadia/arb? [] If no, why not? [] NA Cardiac diet Activity as tolerated Outpatient echo and stress Follow-up with Ayesha Power next week Aspirin 81 mg daily Discharge Medications: Medications at Discharge (Home Meds & RX) albuterol sulfate 90 mcg/actuation aerosol inhaler See Rx Instructions .Route .COMPLEX #6.7 ea 08/30/22 escitalopram oxalate 20 mg tablet See Rx Instructions .Route .COMPLEX #90 tabs 09/05/22 levothyroxine 88 mcg tablet See Rx Instructions .Route .COMPLEX #30 tabs 10/16/22 amoxicillin 875 mg-potassium clavulanate 125 mg tablet 1 tab PO BID 03/06/23 gabapentin 300 mg capsule 300 mg PO DAILY 03/06/23 gabapentin 300 mg capsule 900 mg PO BEDTIME 03/06/23 hydroxyzine HCl 25 mg tablet 25 mg PO BEDTIME 03/06/23 pramipexole 0.25 mg tablet 0.25 mg PO TID 03/06/23 topiramate 25 mg tablet 25 mg PO DAILY 03/06/23 trazodone 50 mg tablet 50 mg PO BEDTIME 03/06/23 budesonide-formoterol HFA 160 mcg-4.5 mcg/actuation aerosol inhaler (Symbicort) 2 puff inhalation BID 03/07/23 Discharge Plan Discharge Discharge Orders: Discharge Patient (ONCE); Ordered 03/07/23 Ordered By: SHARON CALDERON Activity Restrictions/Additional Instructions: Activity as tolerated Cardiac Diet Take daily OTC 81 mg aspirin Resume all other home meds as prescribed. YOU HAVE BEEN SCHEDULED FOR AN OUTPATIENT ECHO ON February AT 11AM WELL A STRESS TEST (NO TREADMILL) ON February AT 11AM. THIS WILL BE AT [facility]. PLEASE ARRIVE 15 MINUTES EARLY TO OUTPATIENT REGISTRATION. PLEASE CALL [phone] IF YOU HAVE ANY FURTHER QUESTIONS. Instructions: Chest Pain (GEN), Stress Echocardiogram (DC) Care Plan Goals: Problem: Chest Pain Goal #1: Absence/improved chest pain Instructions: Apply oxygen as ordered Take medication for chest pain as needed Monitor symptoms, N/V and diaphoresis Monitor chest pain characteristics Goal #2: No elevation in cardiac enzymes Instructions: Obtain labs to monitor enzyme levels Patient Disposition: HOME SELF-CARE Prescriptions: Continued albuterol sulfate 90 mcg/actuation HFA aerosol inhaler See Rx Instructions .ROUTE .COMPLEX Qty: 6.7 0RF Dose Instruction: USE 2 PUFFS INHALED FOUR TIMES DAILY NEEDED FOR SOB/WHEEZING Rx Instructions: USE 2 PUFFS INHALED FOUR TIMES DAILY NEEDED FOR SOB/WHEEZING escitalopram oxalate 20 mg tablet See Rx Instructions .ROUTE .COMPLEX Qty: 90 1RF Dose Instruction: TAKE ONE TABLET DAILY GENERIC FOR LEXAPRO Rx Instructions: TAKE ONE TABLET DAILY GENERIC FOR LEXAPRO levothyroxine 88 mcg tablet See Rx Instructions .ROUTE .COMPLEX Qty: 30 0RF Dose Instruction: TAKE ONE TABLET DAILY IN THE MORNING PRIOR TO FOOD OR DRINK Rx Instructions: TAKE ONE TABLET DAILY IN THE MORNING PRIOR TO FOOD OR DRINK-reschedule missed wellness exam prior to further refills amoxicillin-pot clavulanate 875-125 mg tablet 1 tab PO BID Rx Instructions: RX X10 DAYS. WILL COMPLETE SATURDAY 03/10 trazodone 50 mg tablet 50 mg PO BEDTIME Patient Comments: TAKE 1 TABLET BY MOUTH EVERY DAY AT BEDTIME pramipexole 0.25 mg tablet 0.25 mg PO TID topiramate 25 mg tablet 25 mg PO DAILY gabapentin 300 mg capsule 300 mg PO DAILY Rx Instructions: TAKE ONE CAPSULE 300MG DAILY AND TAKE THREE CAPSULES (900MG) AT BEDTIME; hydroxyzine HCl 25 mg tablet 25 mg PO BEDTIME Rx Instructions: TAKE ONE TABLET THREE TIMES DAILY NEEDED FOR ANXIETY-take sparingly and only if needed as this medication can worsen RLS gabapentin 300 mg capsule 900 mg PO BEDTIME budesonide-formoterol [Symbicort] 160-4.5 mcg/actuation HFA aerosol inhaler 2 puff INHALATION BID Patient Comments: INHALE 2 PUFFS BY MOUTH TWICE DAILY Did you review [place] [employer] for ALL controlled substances?: No Discussed opioids are addictive and Narcan is available by prescription or from pharmacy.: No Condition: Stable
[2023-03-07] MEDS ORDERED: AUGMENTIN 875-125 MG TAB PO SCH (17:00)
== END 2023-03-07 09:40 | disposition home or self-care (01) ==
LOC: ED 10:04 → MEDSURG B 10:04
PROVIDERS: ADMIT Hospitalist; ATTEND Nurse Practitioner Family
DX: R00.2 Palpitations; E03.9 Hypothyroidism, unspecified; F17.210 Nicotine dependence, cigarettes, uncomplicated; Z79.899 Other long term (current) drug therapy; J01.90 Acute sinusitis, unspecified; R06.02 Shortness of breath; M79.661 Pain in right lower leg; R63.5 Abnormal weight gain; F32.A Depression, unspecified; F41.9 Anxiety disorder, unspecified; Z51.81 Encounter for therapeutic drug level monitoring; R07.9 Chest pain, unspecified; G25.81 Restless legs syndrome